=== PATIENT | female | born 1960 | race Hispanic/Latino ===

== ENCOUNTER 2018-09-06 16:53 | Observation (INO) | payer OTHER ==
--- OUTSIDE RECORDS SUMMARY | 2018-09-06 16:55 | XMS REPORT ---
:1960 Author Organization eClinicalWorks Care Team Providers Name Role Phone Centeno, Na Provider Role Unavailable Allergies, Adverse Reactions, Alerts Substance Reaction Event Type Lisinopril Info Not Available Drug Allergy Cozaar Info Not Available Drug Allergy Problems Problem Type Condition Code Onset Dates Condition Status Problem Obesity E66.9 Active Problem Hyperlipidemia E78.5 Active Problem Allergic rhinitis J30.9 Active Problem Snoring R06.83 Active Assessment Influenza vaccination administered Z23 Active at current visit Problem Osteoarthritis M19.90 Active Assessment Osteoarthritis M19.90 Active Assessment History of colon polyps Z86.010 Active Problem History of colon polyps Z86.010 Active Problem 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 Active Problem History of cerebrovascular accident Z86.73 Active Problem Depression with anxiety F41.8 Active Problem Paroxysmal atrial fibrillation I48.0 Active Assessment Depression with anxiety F41.8 Active Assessment Alkaline phosphatase raised R74.8 Active Assessment Allergic rhinitis J30.9 Active Assessment Hypokalemia E87.6 Active Assessment HTN (hypertension) I10 Active Assessment Wellness examination Z00.00 Active Assessment Hyperlipidemia E78.5 Active Assessment Screening mammogram, encounter for Z12.31 Active Problem HTN (hypertension) I10 Active Medications Medication Code Code Instructions Start End Status Dosage System Date Date Flonase [facility] 77237022602 50 MCG/ACT Mar 30, Active 2 spray in Nasally Once a 2017 each day nostril Paxil ND 91883922395 20 MG Active 1 EACH ONCE A DAY ORALLY Flonase ND 40371994879 50 MCG/ACT Active 2 spray in Nasally Once a each day nostril Prilosec ND 09213944730 20 MG Active TOME ADENIKE [place] [facility] [place] [place] Amlodipine ND 95545946400 5 MG Orally Active TOME ADENIKE Besylate Once a day TABLETA [facility]OR [facility] [place] [place] Potassium ND 14494193649 20 MEQ Orally Feb 10, Active 1 tablet Chloride ER Once a day 2018 with food Amlodipine [facility] 85278503735 5 MG Orally Active TOME ADENIKE Besylate Once a day TABLETA POR V[place] Aspir-81 [facility] 08724620386 81 MG Orally Active 1 tablet Once a day Zyrtec Allergy [facility] 89978918220 10 MG Orally Mar 30, Inactive 1 tablet Once a day 2017 Montelukast [facility] 79624626787 10 MG Orally Active 1 tablet Sodium Once a day in the evening Diclofenac [facility] 29273009697 75 MG Orally Mar 30Apr 29, Active 1 tablet Sodium Twice a day prn 2017 2018 with food pain or milk Lipitor [facility] 30592880031 80 MG Orally Active 1 tablet Once a day Results No Known Results Immunizations Vaccine Administration Date Flucelvax - single dose syringe Mar 30, 2018 Summary Purpose eClinicalWorks Submission
--- OUTSIDE RECORDS SUMMARY | 2018-09-06 16:55 | XMS REPORT ---
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 Problem History of cerebrovascular accident Z86.73 Active Problem Grieving F43.21 Active Assessment History of atrial fibrillation Z86.79 Active Problem History of colon polyps Z86.010 Active Assessment Hypokalemia E87.6 Active Assessment Allergic rhinitis J30.9 Active Problem Palpitations R00.2 Active Problem Depression with anxiety F41.8 Active Problem Paroxysmal atrial fibrillation I48.0 Active Problem Snoring R06.83 Active Problem Osteoarthritis M19.90 Active Assessment Depression with anxiety F41.8 Active Assessment Hyperlipidemia E78.5 Active Assessment Grieving F43.21 Active Assessment Alkaline phosphatase raised R74.8 Active Problem Obesity E66.9 Active Assessment Screening mammogram, encounter for Z12.31 Active Assessment HTN (hypertension) I10 Active Problem Allergic rhinitis J30.9 Active Assessment Osteoarthritis M19.90 Active Assessment Palpitations R00.2 Active Problem Hyperlipidemia E78.5 Active Medications Medication Code Code Instructions Start End Status Dosage System Date Date [facility] 76018702308 81 MG Orally Active 1 tablet Once a day Flonase [facility] 45066456279 50 MCG/ACT Active 2 spray in Nasally Once a each day nostril Amlodipine ND 47152342587 5 MG Orally Once Active TOME ADENIKE Besylate a day TABLETA P[place] V[place] Montelukast [facility] 30182027236 10 MG Orally Active 1 tablet Sodium Once a day in the evening Potassium ND 56007590787 20 MEQ Orally Active 1 tablet Chloride ER Once a day with food Flonase [facility] 04560362216 50 MCG/ACT Active 2 spray in Nasally Once a each day nostril Lipitor [facility] 06520923807 80 MG Orally Active 1 tablet Once a day Amlodipine [facility] 39133124351 5 MG Orally Once Active TOME ADENIKE Besylate a day TABLETA [place] [facility] Paxil [facility] 84825085073 40 MG Orally Active 1 tablet Once a day in the morning Prilosec [facility] 19958085993 20 MG Active TOME ADENIKE CAPSULA POR VIA ORAL [place] Results No Known Results Summary Purpose eClinicalWorks Submission
--- OUTSIDE RECORDS SUMMARY | 2018-09-06 16:55 | XMS REPORT ---
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
--- OUTSIDE RECORDS SUMMARY | 2018-09-06 16:55 | XMS REPORT ---
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 Problem Allergic rhinitis J30.9 Active Problem Obesity E66.9 Active Problem Hyperlipidemia E78.5 Active Problem Osteoarthritis M19.90 Active Problem Depression with anxiety F41.8 Active Problem HTN (hypertension) I10 Active Problem Snoring R06.83 Active Assessment Depression with anxiety F41.8 Active Assessment Hyperlipidemia E78.5 Active Assessment Osteoarthritis M19.90 Active Assessment HTN (hypertension) I10 Active Assessment Allergic rhinitis J30.9 Active Medications Medication Code Code Instructions Start End Status Dosage System Date Date Zyrtec Allergy [facility] 87858221567 10 MG Orally Active 1 tablet Once a day Lipitor [facility] 52877457014 80 MG Orally Active 1 tablet Once a day Flonase [facility] [address]-92 50 MCG/ACT Active 2 spray in Nasally Once a each day nostril Prilosec [facility] 33872798382 20 MG Active TOME ADENIKE [place]A [place] Paxil [facility] 71906359097 20 MG Active 1 EACH ONCE A DAY ORALLY Montelukast ND 37270632421 10 MG Orally Dec 06, Active 1 tablet Sodium Once a day 2018 in the evening Diclofenac ND 78256278206 75 MG Orally Mar 06, Active 1 tablet Sodium Twice a day 2018 with food or milk prn pain Amlodipine ND 21903952840 5 MG Orally Active TOME ADENIKE Besylate Once a day TABLETA P[place] [facility] [place] Aspir-81 [facility] 90083649557 81 MG Orally Active 1 tablet Once a day Results No Known Results Summary Purpose eClinicalWorks Submission
[2018-09-06 17:45] LABS: Absolute Lymphocytes (CBC) 1.7 K/uL (0.7-4.9); Absolute Monocytes 0.4 K/uL (0.1-1.3); Absolute Neutrophil 4.5 K/uL (1.8-8.0); Basophils % 0.5 % (0-1.3); Eosinophils % 1.5 % (0-4.4); Lymphocytes % 24.9 % (15.3-44.8); MPV 8.1 fL (7.6-11.3); Monocytes % 6.6 % (3.3-12.3); RBC Red Blood Cell Count 4.73 M/uL (3.86-4.86)
--- NOTE | 2018-09-06 17:49 | RAD REPORT ---
EXAM DESCRIPTION: [place] Single View09/06/2018 5:36 pm CLINICAL HISTORY: Chest pain COMPARISON: 2012 FINDINGS: The lungs appear clear of acute infiltrate. The heart is normal size IMPRESSION: No acute abnormalities displayed
[2018-09-06 18:04] LABS: ALT/SGPT 39 U/L (12-78); AST/SGOT 27 U/L (15-37); Albumin 3.5 g/dL (3.4-5.0); Alkaline Phosphatase 130 U/L (45-117); BUN Blood Urea Nitrogen 11 mg/dL (7-18); Bicarbonate 28 mmol/L (21-32); Bilirubin Direct 0.2 mg/dL (0-0.2); Bilirubin Total 0.6 mg/dL (0.2-1.0); Glucose Level 101 mg/dL (74-106); NT PRO-BNP 43 pg/mL (<125); Protein, Total 7.6 g/dL (6.4-8.2); Sodium Level 140 mmol/L (136-145); Troponin (Emerg Dept Use Only) < 0.02 ng/mL (0.0-0.045)
[2018-09-06] MEDS ORDERED: ASPIRIN 81 MG CHEWABLE TABLET ONE (18:05)
[2018-09-06 18:14] LABS: Potassium 2.9 mmol/L (3.5-5.1)
--- NOTE | 2018-09-06 18:25 | EDPHYS ---
Physician Documentation [facility] Name: Doreen Petty Age: 58 yrs Sex: Female : 1960 Arrival Date: 09/06/2018 Time: 16:56 Bed 7 Private MD: Autumn Centeno ED Physician Harry Urban HPI: 09/06 17:31 This 58 yrs old Female presents to ER via Ambulatory with complaints of Chest rn Pain. 17:31 The patient or guardian reports chest pain that is located primarily in the substernal rn area. Onset: yesterday. The pain does not radiate. Associated signs and symptoms: Pertinent positives: diaphoresis, nausea. The chest pain is described as a heaviness, squeezing. Duration: The patient or guardian reports multiple episodes, that are intermittent, the episodes last approximately 10 minute(s). Modifying factors: The symptoms are alleviated by ASA, the symptoms are aggravated by nothing. Severity of pain: At its worst the pain was moderate in the emergency department the pain has improved. The patient has not recently seen a physician. Reports 2 days of chest pain, substernal, intermittent, lasting 10-20 min, states takes aspirin and improves, assoc with nausea and diaphoresis. Reports has never had heart attack but has had stroke, HTN, HLD. . Historical: - Allergies: 16:59 No Known Allergies; hj - PMHx: 16:59 Hypertension; Depression; Hyperlipidemia; hj - PSHx: 16:59 ; Appendectomy; hj - Immunization history:: Adult Immunizations up to date. - Social history:: Smoking status: Patient/guardian denies using tobacco. - Family history:: not pertinent. - Ebola Screening: : Patient denies travel to an Ebola-affected area in the 21 days before illness onset. - Hospitalizations: : No recent hospitalization is reported. ROS: 17:31 Constitutional: Negative for fever, chills, and weight loss, Eyes: Negative for injury, rn pain, redness, and discharge, Neck: Negative for injury, pain, and swelling, Cardiovascular: + chest pain Respiratory: Negative for shortness of breath, wheezing, and pleuritic chest pain, Abdomen/GI: Negative for abdominal pain, vomiting, diarrhea, and constipation, MS/Extremity: Negative for injury and deformity, Skin: Negative for injury, rash, and discoloration, Neuro: Negative for headache, weakness, numbness, tingling, and seizure. Exam: 17:31 Constitutional: This is a well developed, well nourished patient who is awake, alert, rn and in no acute distress. Head/Face: Normocephalic, atraumatic. Eyes: Pupils equal round and reactive to light, extra-ocular motions intact. Lids and lashes normal. Conjunctiva and sclera are non-icteric and not injected. Cornea within normal limits. Periorbital areas with no swelling, redness, or edema. Neck: Trachea midline, no thyromegaly or masses palpated, and no cervical lymphadenopathy. Supple, full range of motion without nuchal rigidity, or vertebral point tenderness. No Meningismus. Cardiovascular: Regular rate and rhythm. No pulse deficits. Respiratory: Lungs have equal breath sounds bilaterally, clear to auscultation. No increased work of breathing, no retractions or nasal flaring. Abdomen/GI: Soft, non-tender Skin: Warm, dry MS/ Extremity: Pulses equal, no cyanosis. Neurovascular intact. Full, normal range of motion. Equal circumference. Neuro: Awake and alert, GCS 15, oriented to person, place, time, and situation. Cranial nerves II-XII grossly intact. Motor strength 5/5 in all extremities. Sensory grossly intact. 18:26 ECG was reviewed by the Attending Physician. rn Vital Signs: 16:59 BP 140 / 78; Pulse 94; Resp 18; Temp 98.3(O); Pulse Ox 97% on R/A; Weight 95.25 kg; hj Height 5 ft. 2 in. (157.48 cm); Pain 6/10; 17:35 BP 161 / 91; Pulse 100; Resp 19; Pulse Ox 97% on R/A; ae4 18:26 BP 165 / 86; Pulse 102; Resp 16; Pulse Ox 100% on R/A; ae4 19:45 BP 146 / 91; Pulse 91; Resp 18; Temp 98.2(TE); Pulse Ox 97% on R/A; Pain 0/10; lp1 16:59 Body Mass Index 38.41 (95.25 kg, 157.48 cm) MDM: 17:11 Patient medically screened. rn 18:21 HEART Score: History: Highly Suspicious (2), ECG: Normal (0), Age: > 45 and < 65 years rn (1), Risk Factors: > or = 3 Risk factors for atherosclerotic disease (2), [Hypercholesterolemia] [Hypertension] [+ Family HX] [Obesity] Troponin: < or = 1 x Normal Limit (0). The patient was given aspirin in the Emergency Department. Data reviewed: vital signs, nurses notes, lab test result(s), EKG, radiologic studies, plain films, and as a result, I will admit patient. Counseling: I had a detailed discussion with the patient and/or guardian regarding: the historical points, exam findings, and any diagnostic results supporting the discharge/admit diagnosis, lab results, radiology results, the need for further work-up and treatment in the hospital. Admission orders: after a detailed discussion of the patient's condition and case, the admit orders are written by me. ED course: Pt high risk chest pain, has known atherosclerotic disease, HTN, HLD, highly suspicious story and no recent cardiac w/u. Patient continuing to take aspirin at home with improvement. Will admit to Dr. Dc, did not answer, voicemail left. . 18:26 ED course: Also prolonged QT on ECG, likely from abilify that she just started. Not rn likely cause of her pain but puts her at higher risk of arrythmia. . 09/06 17:20 Order name: Basic Metabolic Panel; Complete Time: 18:18 rn 09/06 17:20 Order name: CBC with Diff; Complete Time: 18:04 rn 09/06 17:20 Order name: LFT's; Complete Time: 18:18 rn 09/06 17:20 Order name: NT PRO-BNP; Complete Time: 18:18 rn 09/06 17:20 Order name: Troponin (emerg Dept Use Only); Complete Time: 18:18 rn 09/06 17:20 Order name: XRAY Chest (1 view); Complete Time: 18:04 rn 09/06 17:01 Order name: EKG - Nurse/Tech; Complete Time: 17:12 09/06 17:18 Order name: EKG Electrocardiogram; Complete Time: 17:18 EDMS 09/06 17:20 Order name: Cardiac monitoring; Complete Time: 17:33 rn 09/06 17:20 Order name: IV Saline Lock; Complete Time: 17:34 rn 09/06 17:20 Order name: Labs collected and sent; Complete Time: 17: rn 09/06 17:20 Order name: O2 Per Protocol; Complete Time: rn 09/06 17:20 Order name: O2 Sat Monitoring; Complete Time: :34 rn EC:26 Rate is 86 beats/min. Rhythm is regular. QRS Stover is Normal. MD interval is normal. QRS rn interval is normal. QT interval is prolonged at 497 msec. No Q waves. T waves are Normal. No ST changes noted. Clinical impression: Prolonged QT, NSR. Interpreted by me. Reviewed by me. Administered Medications: 17:51 Drug: Aspirin Chewable Tablet 324 mg Route: PO; ae4 18:56 Follow up: Response: No adverse reaction ae4 Disposition: 09/06/18 18:24 Hospitalization ordered by Ni Dc for Observation. Preliminary diagnosis is Chest pain, unspecified. - Bed requested for Telemetry/MedSurg (observation). - Status is Observation. lp1 - Condition is Stable. - Problem is new. - Symptoms have improved. UTI on Admission? No Signatures: Dispatcher [employer] EDMN Yvette Glasgow RN RN dw Harry Urban MD MD rn Pena, Laura, RN RN lp1 Walt Dean, RN OSITO Adrien Patterson RN RN ae4 Corrections: (The following items were deleted from the chart) 19:33 18:24 Hospitalization Ordered by Ni Dc MD for Observation. Preliminary diagnosis dw is Chest pain, unspecified. Bed requested for Telemetry/MedSurg (observation). Status is Observation. Condition is Stable. Problem is new. Symptoms have improved. UTI on Admission? No. rn 20:36 19:33 09/06/2018 18:24 Hospitalization Ordered by Ni Dc MD for Observation. lp1 Preliminary diagnosis is Chest pain, unspecified. Bed requested for Telemetry/MedSurg (observation). Status is Observation. Condition is Stable. Problem is new. Symptoms have improved. UTI on Admission? No. dw
--- NOTE | 2018-09-06 18:25 | ER ---
Nurse's Notes [facility] Name: Doreen Petty Age: 58 yrs Sex: Female : 1960 Arrival Date: 09/06/2018 Time: 16:56 Bed 7 Private MD: Autumn Centeno Diagnosis: Chest pain, unspecified Presentation: 09/06 16:57 Presenting complaint: Child states: her PCP told her to come to the ER for chest pain hj and be evaluated; per EKG there is prolonged QT; pain started 2 days ago, reports pressure, heavy type of pain; reports non radiating pain; reports SOB;. Transition of care: patient was not received from another setting of care. Onset of symptoms was September 06, 2018. Risk Assessment: Do you want to hurt yourself or someone else? Patient reports no desire to harm self or others. Initial Sepsis Screen: Does the patient meet any 2 criteria? No. Patient's initial sepsis screen is negative. Does the patient have a suspected source of infection? No. Patient's initial sepsis screen is negative. Care prior to arrival: None. 16:57 Method Of Arrival: Ambulatory 16:57 Acuity: TANIYA 3 hj Historical: - Allergies: 16:59 No Known Allergies; hj - PMHx: 16:59 Hypertension; Depression; Hyperlipidemia; hj - PSHx: 16:59 ; Appendectomy; hj - Immunization history:: Adult Immunizations up to date. - Social history:: Smoking status: Patient/guardian denies using tobacco. - Family history:: not pertinent. - Ebola Screening: : Patient denies travel to an Ebola-affected area in the 21 days before illness onset. - Hospitalizations: : No recent hospitalization is reported. Screenin:28 Abuse screen: Denies threats or abuse. Nutritional screening: No deficits noted. ae4 Tuberculosis screening: No symptoms or risk factors identified. Fall Risk None identified. Assessment: 17:10 Reassessment: application performance engineer at bedside obtaining EKG. ae4 17:15 Reassessment: Patient states pain is intermittent. General: Appears uncomfortable, ae4 obese, Behavior is cooperative, appropriate for age, anxious. Pain: Complains of pain in chest Pain does not radiate. Quality of pain is described as crushing, squeezing, Pain began gradually. Neuro: Level of Consciousness is awake, alert, obeys commands, Oriented to person, place, time, situation, Appropriate for age. Cardiovascular: Heart tones S1 S2 present Patient states she has had pain like this before and it is often accompanied by nausea and shortness of breath. . Patient's skin is warm and dry. Cardiovascular: Reports chest pain, nausea, shortness of breath. Respiratory: Airway is patent Respiratory effort is even, unlabored, Respiratory pattern is regular, symmetrical, Breath sounds are clear bilaterally. GI: No signs and/or symptoms were reported involving the gastrointestinal system. Bowel sounds present X 4 quads. Reports nausea. : No signs and/or symptoms were reported regarding the genitourinary system. EENT: No signs and/or symptoms were reported regarding the EENT system. Derm: Skin is dry, Skin is normal. Musculoskeletal: No signs and/or symptoms reported regarding the musculoskeletal system. 18:29 Reassessment: Patient appears in no apparent distress at this time. Patient and/or ae4 family updated on plan of care and expected duration. Pain level reassessed. Patient is alert, oriented x 3, equal unlabored respirations, skin warm/dry/pink. 19:45 Reassessment: Patient appears in no apparent distress at this time. Patient is alert, lp1 oriented x 3, equal unlabored respirations, skin warm/dry/pink. Patient denies pain at this time. Patient states feeling better. Vital Signs: 16:59 BP 140 / 78; Pulse 94; Resp 18; Temp 98.3(O); Pulse Ox 97% on R/A; Weight 95.25 kg; Height 5 ft. 2 in. (157.48 cm); Pain 6/10; 17:35 BP 161 / 91; Pulse 100; Resp 19; Pulse Ox 97% on R/A; ae4 18:26 BP 165 / 86; Pulse 102; Resp 16; Pulse Ox 100% on R/A; ae4 19:45 BP 146 / 91; Pulse 91; Resp 18; Temp 98.2(TE); Pulse Ox 97% on R/A; Pain 0/10; lp1 16:59 Body Mass Index 38.41 (95.25 kg, 157.48 cm) ED Course: 16:56 Patient arrived in ED. mr 16:56 Autumn Centeno MD is Private Physician. mr 16:58 Triage completed. hj 17:00 Arm band placed on left wrist. hj 17:06 Roland Arciniega, RN is Primary Nurse. mg2 17:08 Placed in gown. Bed in low position. Call light in reach. Side rails up X 1. Adult w/ ae4 patient. security monitor on. Pulse ox on. NIBP on. Warm blanket given. 17:11 Harry Urban MD is Attending Physician. rn 17:12 EKG done, by orthopedic technician. reviewed by Harry Urban MD. sm3 17:34 Inserted saline lock: 20 gauge in right forearm, using aseptic technique. Blood ae4 collected. Patient maintains SpO2 saturation greater than 95% on room air. 17:38 XRAY Chest (1 view) In Process Unspecified. EDMS 18:24 Ni Dc MD is Hospitalizing Provider. rn 19:45 No provider procedures requiring assistance completed. Patient admitted, IV remains in lp1 place. Administered Medications: 17:51 Drug: Aspirin Chewable Tablet 324 mg Route: PO; ae4 18:56 Follow up: Response: No adverse reaction ae4 Outcome: 18:24 Decision to Hospitalize by Provider. rn 19:45 Condition: stable lp1 19:45 Instructed on the need for admit. 19:52 Admitted to Tele accompanied by tech, via wheelchair, room 410, with chart, Report lp1 called to OSITO Mendoza 20:10 Patient left the ED. lp1 Signatures: Dispatcher [employer] EDND Gatito Maria Luisa mr Harry Urban MD MD rn Pena, Laura, RN RN lp1 Walt Dean RN RN Roland Arciniega, OSITO [facility] [facility] Kayla Multani sm3 Adrien Patterson RN RN ae4 Corrections: (The following items were deleted from the chart) 17:01 16:57 Presenting complaint: Child states: her PCP told here to come to the ER for chest hj pain and be evaluated; pain started 2 days ago, reports pressure, heavy type of pain; reports non radiating pain; reports SOB; hj 17:01 16:59 Pulse 94bpm; Resp 18bpm; Pulse Ox 97% RA; Temp 98.3F Oral; 95.25 kg; Height 5 ft. hj 2 in.; BMI: 38.4; Pain 6/10; hj 20:37 20:36 Patient left the ED. lp1 lp1
[2018-09-06] MEDS ORDERED: POTASSIUM CL SA 10 MEQ TAB PO ONE ×2 (20:29→23:00)
[2018-09-07] VITALS: BMI 38.4
[2018-09-07] MEDS ORDERED: ALPRAZOLAM 0.25 MG TABLET PO PRN (06:09)
[2018-09-07] MEDS ORDERED: ACETAMINOPHEN 500 MG TAB PO PRN (06:09)
[2018-09-07 06:26] LABS: Absolute Lymphocytes (CBC) 1.5 K/uL (0.7-4.9); Absolute Monocytes 0.4 K/uL (0.1-1.3); Absolute Neutrophil 3.6 K/uL (1.8-8.0); Basophils % 0.3 % (0-1.3); Eosinophils % 2.2 % (0-4.4); Hematocrit 40.4 % (36.0-45.0); Lymphocytes % 26.5 % (15.3-44.8); MPV 8.1 fL (7.6-11.3); Monocytes % 7.8 % (3.3-12.3); RBC Red Blood Cell Count 4.48 M/uL (3.86-4.86)
[2018-09-07 06:43] LABS: ALT/SGPT 36 U/L (12-78); AST/SGOT 31 U/L (15-37); Albumin 3.2 g/dL (3.4-5.0); Alkaline Phosphatase 111 U/L (45-117); BUN Blood Urea Nitrogen 10 mg/dL (7-18); Bicarbonate 29 mmol/L (21-32); Bilirubin Total 0.7 mg/dL (0.2-1.0); Glucose Level 91 mg/dL (74-106); Potassium 3.6 mmol/L (3.5-5.1); Protein, Total 6.8 g/dL (6.4-8.2); Sodium Level 143 mmol/L (136-145)
[2018-09-07] MEDS ORDERED: POTASSIUM CL SA 10 MEQ TAB PO ONE (07:17)
[2018-09-07] MEDS: METOPROLOL TAR 50 MG TAB PO SCH ×2 (08:53→09:00)
[2018-09-07] MEDS: ENOXAPARIN 40 MG/0.4 ML SQ SCH (08:53)
[2018-09-07] MEDS ORDERED: ASPIRIN EC 81 MG TAB PO SCH (09:00)
--- NOTE | 2018-09-07 10:24 | P.HP ---
Certification for Inpatient Patient admitted to: Observation With expected LOS: <2 Midnights Patient will require the following post-hospital care: None Practitioner: I am a practitioner with admitting privileges, knowledge of patient current condition, hospital course, and medical plan of care. Services: Services provided to patient in accordance with Admission requirements found in Title 42 Section 412.3 of the Code of Federal Regulations Patient History Date of Service: 09/06/18 Reason for admission: Chest pain rule out acute coronary syndrome History of Present Illness: Patient is a 58-year-old female who came into the hospital with chest pain mainly in the sternal region. the patient the also had some diaphoresis and nausea. Patient's chest pain was also described as if someone was sitting on her. I believe she has her son who gives most of the history. Patient's chest pain lasted for about 20 min. She took some anti-platelet platelet therapy and they brought her into the hospital. In the ER she was given additional medications and since that time her chest pain has been alleviated. Patient has a numerous risk factors for coronary artery disease. These include morbid obesity, hypertension, dyslipidemia, depression, and her age. Her symptoms are improved and her EKG and troponins were negative except for some slight QT prolongation on her EKG. Will repeat EKG and troponins and if this is negative she will need outpatient workup with follow-up with the bakery team leader. Allergies NKDA Allergy (Uncoded 03/31/15 22:59) Unknown Home Medications: ARIPiprazole [Aripiprazole] 5 mg PO DAILY 09/06/18 Amlodipine Besylate 5 mg PO DAILY 09/06/18 Aspirin 81 mg PO DAILY 09/06/18 Montelukast [Singulair] 10 mg PO DAILY 09/06/18 Omeprazole 20 mg PO DAILY 09/06/18 PARoxetine HCl [Paroxetine HCl] 40 mg PO DAILY 09/06/18 Potassium Chloride [Klor-Con M20] 20 meq PO DAILY 09/06/18 - Past Medical/Surgical History Has patient received pneumonia vaccine in the past: Yes Diabetic: No -: HTN -: HLD -: Depression -: -: Appendectomy - Family History Father Family History: Reviewed- Non-Contributory - Social History Smoking Status: Never smoker Alcohol use: No CD- Drugs: No Caffeine use: Yes Place of Residence: Home Review of Systems 10-point ROS is otherwise unremarkable Physical Examination - Vital Signs Temperature: 97.8 F Blood Pressure: 129/55 Pulse: 75 Respirations: 18 Pulse Ox (%): 95 - Physical Exam General: Alert, In no apparent distress, Oriented x3 HEENT: Atraumatic, PERRLA, Mucous membr. moist/pink, EOMI, Sclerae nonicteric Neck: Supple, 2+ carotid pulse no bruit, No LAD, Without JVD or thyroid abnormality Respiratory: Clear to auscultation bilaterally, Normal air movement Cardiovascular: Regular rate/rhythm, Normal S1 S2, No murmurs Gastrointestinal: Normal bowel sounds, Soft and benign, Non-distended, No rebound, No guarding, Tenderness Musculoskeletal: No clubbing, No swelling, No tenderness Integumentary: No rashes Neurological: Normal gait, Normal speech, Normal strength at 5/5 x4 extr, Normal tone, Sensation intact, Cranial nerves 3-12 intact, Normal affect Lymphatics: No axilla or inguinal lymphadenopathy - Studies Laboratory Data (last 24 hrs) 09/06/18 17:24: WBC 6.8, Hgb 14.5, Hct 43.0, Plt Count 292 09/06/18 17:24: Sodium 140, Potassium 2.9 L*, BUN 11, Creatinine 0.60, Glucose 101, Total Bilirubin 0.6, AST 27, ALT 39, Alkaline Phosphatase 130 H Assessment & Plan - Problems (Diagnosis) (1) Chest pain, rule out acute myocardial infarction Current Visit: Yes Status: Acute (2) Hypertension Current Visit: Yes Status: Acute (3) Hyperlipidemia Current Visit: Yes Status: Acute (4) Morbid obesity Current Visit: Yes Status: Acute (5) History of depression Current Visit: Yes Status: Acute - Plan 1. Serial troponins and EKG 2. Cardiology consultation 3. Echocardiogram and further testing for cardiology 4. Anti-platelet therapy, anti coagulation, beta-phillip, statin, and O2 as needed 5. IV morphine for pain 6. Nitro p.r.n. 7. Patient will need to decrease risk factors going forward. We will discuss with Cardiology whether she needs a stress test. If her EKGs and troponins remain essentially unremarkable then we can probably wait and have her follow up with Cardiology as an outpatient. If she continues to have chest pain with negative troponins and we may need to go ahead and do a stress test. She may need further outpatient workup for other etiologies. She has not had a mammogram in quite a while and she also needs to get this looked at. At this time patient meets criteria for observation. We will admit patient her for 24 hr pending her further workup to be completed. Discharge Plan: Home Plan to discharge in: 24 Hours - Advance Directives Does patient have a Living Will: No Does patient have a Durable POA for Healthcare: No - Code Status/Comfort Care Code Status Assessed: Yes Code Status: Full Code Critical Care: No Time Spent Managing PTS Care (In Minutes): 45
[2018-09-07 10:53] LABS: Urine Appearance CLOUDY; Urine Bilirubin NEGATIVE (NEG); Urine Blood NEGATIVE (NEG); Urine Color YELLOW; Urine Glucose NEGATIVE (NEG); Urine Protein NEGATIVE (NEG); Urine Specific Gravity 1.015 (1.005-1.030); Urine pH 7.5 (5.0-7.0)
[2018-09-07 11:01] LABS: Urine Bacteria >50 /HPF (<20); Urine Culture Reflex Order REFLEXED; Urine RBC <5 /HPF (NONE SEEN)
--- NOTE | 2018-09-07 11:11 | EKG ---
Test Date: 2018-09-06 Test Time: 17:12:06 Nurse Practical: ALYX MEASUREMENT RESULTS: Intervals: Rate: 86 NM: 152 QRSD: 88 QT: 416 QTc: 497 [place]: P: 38 NM: 152 QRS: 10 T: 63 INTERPRETIVE STATEMENTS: Normal sinus rhythm Prolonged QT Abnormal ECG Compared to ECG 06/28/2018 16:56:44 No significant changes Electronically Signed On 09-07-18 11:09:49 CDT by Jose J Claire
--- NOTE | 2018-09-07 11:24 | ECHO ---
HEIGHT: 5 ft 2 in WEIGHT: 210 lb 0 oz DATE OF STUDY: 09/07/[address]: Mian Sears MD 2-DIMENSIONAL: YES M.MODE: YES DOPPLER: YES COLOR FLOW: YES TDS: YES PORTABLE: NO DEFINITY: NO BUBBLE STUDY: NO DIAGNOSIS: CHEST PAIN RULE OUT ACUTE CORONARY SYNDROME CARDIAC HISTORY: CATHERIZATION: NO SURGERY: NO PROSTHETIC VALVE: NO PACEMAKER: NO MEASUREMENTS (cm) DIASTOLIC (NORMALS) SYSTOLIC (NORMALS) IVSd 1.1 (0.6-1.2) LA Diam 3.5 (1.9-4.0) LVEF 55% LVIDd 4.5 (3.5-5.7) LVIDs 3.2 (2.0-3.5) %FS 29% LVPWd 1.1 (0.6-1.2) Ao Diam 3.5 (2.0-3.7) 2 DIMENSIONAL ASSESSMENT: RIGHT ATRIUM: NORMAL LEFT ATRIUM: NORMAL RIGHT VENTRICLE: NORMAL LEFT VENTRICLE: NORMAL TRICUSPID VALVE: NORMAL MITRAL VALVE: NORMAL PULMONIC VALVE: NORMAL AORTIC VALVE: NORMAL PERICARDIAL EFFUSION: NONE AORTIC ROOT: NORMAL LEFT VENTRICULAR WALL MOTION: NORMAL. DOPPLER/COLOR FLOW: NORMAL. COMMENTS: NORMAL 2D ECHO WITH DOPPLER. NO WALL MOTION ABNORMALITY. NO EFFUSION. TECHNOLOGIST: OSCAR TONY
[2018-09-07] MEDS: DOCUSATE NA 100 MG CAP PO SCH ×2 (12:43→20:42)
--- NOTE | 2018-09-07 15:36 | P.PN ---
Subjective Date of Service: 09/07/18 Chief Complaint: Chest pain rule out acute coronary syndrome Subjective: No C/O voiced, Improving Patient seen and examined at bedside. Son at bedside. Chart reviewed and case discussed with Nursing staff. Patient reports resolved chest pain now. No complaints or concerns this morning. Review of Systems 10-point ROS is otherwise unremarkable Physical Examination - Vital Signs Temperature: 98.1 F Blood Pressure: 136/67 Pulse: 72 Respirations: 18 Pulse Ox (%): 95 - Physical Exam General: Alert, In no apparent distress, Oriented x3 HEENT: Atraumatic, PERRLA, EOMI Neck: Supple, JVD not distended Respiratory: Clear to auscultation bilaterally, Normal air movement Cardiovascular: Regular rate/rhythm, Normal S1 S2 Gastrointestinal: Normal bowel sounds, No tenderness Musculoskeletal: No tenderness Integumentary: No rashes Neurological: Normal speech, Normal tone, Normal affect Lymphatics: No axilla or inguinal lymphadenopathy - Studies Laboratory Data (last 24 hrs) 09/06/18 17:24: WBC 6.8, Hgb 14.5, Hct 43.0, Plt Count 292 09/06/18 17:24: Sodium 140, Potassium 2.9 L*, BUN 11, Creatinine 0.60, Glucose 101, Total Bilirubin 0.6, AST 27, ALT 39, Alkaline Phosphatase 130 H Assessment And Plan - Current Problems (Diagnosis) (1) Chest pain, rule out acute myocardial infarction Current Visit: Yes Status: Acute (2) Hypertension Current Visit: Yes Status: Acute (3) Hyperlipidemia Current Visit: Yes Status: Acute (4) Morbid obesity Current Visit: Yes Status: Acute (5) History of depression Current Visit: Yes Status: Acute (6) Urinary tract infection Current Visit: Yes Status: Suspected Qualifiers: Urinary tract infection type: acute cystitis Hematuria presence: without hematuria Qualified Code(s): N30.00 - Acute cystitis without hematuria - Plan - Serial troponins, negative x2 - Cardiology consultation. Recommendations appreciated. Pending stress test tomorrow. - Echocardiogram normal with EF of 55% - Continue Anti-platelet therapy, anti coagulation, beta-phillip, statin, and O2 as needed - IV morphine for pain - Nitro p.r.n. Disposition: pending stress test tomorrow. Possible DC home doris if stress test negative.
[2018-09-07] MEDS: CEFTRIAXONE/SWI 1gm 1 GM/10 ML SYR IVP SCH (16:00)
--- NOTE | 2018-09-07 16:19 | CON ---
Date of Consultation: 09/07/[address] Dc's service on 09/06/2018. I saw the patient on 09/07/2018. Reason For Consultation: Chest pain. History Of Present Illness: Ms. Petty is a 58-year-old [place] woman with no previous car diac history, but she has a history of hypertension, dyslipidemia, gastroesophageal reflux disease, C OPD, and hypokalemia. She came in with substernal chest pressure that has been going on for about 48 hours intermittently, would last 15-20 minutes with nausea, diaphoresis, and shortness of breath, bu t no vomiting. Her symptoms are nonexertional. She, in the emergency room, was noted to have a norm al EKG, normal chest x-ray. Her potassium was 2.9, which was supplemented. Past Medical History: As stated above. Allergies: NONE. Review of Systems: Negative. Social History: Negative. Family History: Negative. Physical Examination: Vital signs: Stable, afebrile. HEENT Exam: Negative. Neck: Supple. No bruit, lymphadenopathy, JVD, or thyromegaly. Chest: Clear to auscultation and percussion. Cardiac Exam: Revealed a regular rhythm and rate. No murmurs, gallops, or rubs. Abdomen: Benign. Extremities: Revealed no clubbing, cyanosis, or edema. Diagnostic Data: As stated earlier. Impression And Plan: 1.Symptoms, that certainly could be related to coronary artery disease. The patient is 58; has obes ity, hypertension, dyslipidemia. I think despite her normal EKG and a normal x-ray and normal blood work, I think she needs to have a rather aggressive workup. I recommend an echocardiogram and a stre ss test. Her echo is being done today. We will plan to do a stress test on her tomorrow prior to sally chang final decisions. 2.Hypokalemia that has corrected. 3.Hypertension. 4.Dyslipidemia. 5.Chronic obstructive pulmonary disease. 6.Gastroesophageal reflux disease. ESPERANZA/MERCEDES Voice ID: [id number] Report ID: [id number]
[2018-09-07] MEDS: METOPROLOL TAR 25 MG TAB PO SCH (20:42)
[2018-09-08 06:15] LABS: BUN Blood Urea Nitrogen 13 mg/dL (7-18); Bicarbonate 30 mmol/L (21-32); Glucose Level 100 mg/dL (74-106); Potassium 3.9 mmol/L (3.5-5.1); Sodium Level 141 mmol/L (136-145)
[2018-09-08] MEDS ORDERED: POTASSIUM CL SA 10 MEQ TAB PO ONE (06:17)
[2018-09-08] MEDS ORDERED: PANTOPRAZOLE 40MG TABLET PO SCH (07:30)
[2018-09-08 08:56] VITALS: TEMP 98.1
[2018-09-08] MEDS ORDERED: HOME MED 1 EA UNK (Omeprazole [Omeprazole] 20 MG) PO SCH (09:00)
[2018-09-08] MEDS: METOPROLOL TAR 25 MG TAB PO SCH (09:00)
[2018-09-08] MEDS ORDERED: MONTELUKAST 10 MG TAB PO SCH (09:00)
[2018-09-08] MEDS ORDERED: POTASSIUM CL SA 10 MEQ TAB PO SCH (09:00)
[2018-09-08] MEDS: ENOXAPARIN 40 MG/0.4 ML SQ SCH (09:00)
[2018-09-08] MEDS ORDERED: ASPIRIN 81 MG CHEWABLE TABLET PO SCH (09:00)
[2018-09-08] MEDS ORDERED: HOME MED 1 EA UNK (Paroxetine Hcl [Paroxetine Hcl] 40 MG) PO SCH (09:00)
[2018-09-08] MEDS ORDERED: ARIPiprazole 5 MG TAB PO SCH (09:00)
[2018-09-08] MEDS ORDERED: POTASSIUM CHLORIDE 20 MEQ PO SCH (09:00)
[2018-09-08] MEDS ORDERED: PARoxetine HCl 10 MG TAB PO SCH (09:00)
[2018-09-08] MEDS ORDERED: AMLODIPINE 5 MG TAB PO SCH (09:00)
[2018-09-08] MEDS ORDERED: REGADENOSON 0.4 MG/5 ML SYR IV ONE (09:33)
[2018-09-08 11:37] VITALS: O2SAT 96
--- NOTE | 2018-09-08 12:02 | P.SSS ---
Patient History Date of Service: 09/08/18 Reason for admission: Chest pain rule out acute coronary syndrome History of Present Illness: Patient is a 58-year-old female who came into the hospital with chest pain mainly in the sternal region. the patient the also had some diaphoresis and nausea. Patient's chest pain was also described as if someone was sitting on her. I believe she has her son who gives most of the history. Patient's chest pain lasted for about 20 min. She took some anti-platelet platelet therapy and they brought her into the hospital. In the ER she was given additional medications and since that time her chest pain has been alleviated. Patient has a numerous risk factors for coronary artery disease. These include morbid obesity, hypertension, dyslipidemia, depression, and her age. Her symptoms are improved and her EKG and troponins were negative except for some slight QT prolongation on her EKG. Will repeat EKG and troponins and if this is negative she will need outpatient workup with follow-up with the publications editor. Allergies NKDA Allergy (Uncoded 03/31/15 22:59) Unknown Home medications list reviewed: Yes Home Medications: ARIPiprazole [Aripiprazole] 5 mg PO DAILY 09/06/18 Amlodipine Besylate 5 mg PO DAILY 09/06/18 Aspirin 81 mg PO DAILY 09/06/18 Montelukast [Singulair] 10 mg PO DAILY 09/06/18 Omeprazole 20 mg PO DAILY 09/06/18 PARoxetine HCl [Paroxetine HCl] 40 mg PO DAILY 09/06/18 Potassium Chloride [Klor-Con M20] 20 meq PO DAILY 09/06/18 - Past Medical/Surgical History Has patient received pneumonia vaccine in the past: Yes Diabetic: No -: HTN -: HLD -: Depression -: -: Appendectomy - Social History Smoking Status: Never smoker Alcohol use: No CD- Drugs: No Caffeine use: Yes Place of Residence: Home Review of Systems 10-point ROS is otherwise unremarkable Physical Examination - Vital Signs Temperature: 98.1 F Blood Pressure: 117/60 Pulse: 61 Respirations: 18 Pulse Ox (%): 94 - Physical Exam General: Alert, In no apparent distress, Oriented x3 HEENT: Atraumatic, PERRLA, Mucous membr. moist/pink, EOMI, Sclerae nonicteric Neck: Supple, 2+ carotid pulse no bruit, No LAD, Without JVD or thyroid abnormality Respiratory: Clear to auscultation bilaterally, Normal air movement Cardiovascular: Regular rate/rhythm, Normal S1 S2 Gastrointestinal: Normal bowel sounds, No tenderness Musculoskeletal: No tenderness Integumentary: No rashes Neurological: Normal gait, Normal speech, Normal strength at 5/5 x4 extr, Normal tone, Normal affect Lymphatics: No axilla or inguinal lymphadenopathy - Diagnosis (Problem(s)) (1) Chest pain, rule out acute myocardial infarction Current Visit: Yes Status: Acute (2) Hypertension Current Visit: Yes Status: Acute (3) Hyperlipidemia Current Visit: Yes Status: Acute (4) Morbid obesity Current Visit: Yes Status: Acute (5) History of depression Current Visit: Yes Status: Acute (6) Urinary tract infection Current Visit: Yes Status: Suspected Qualifiers: Urinary tract infection type: acute cystitis Hematuria presence: without hematuria Qualified Code(s): N30.00 - Acute cystitis without hematuria Treatment Summary: Patient was admitted for chest pain rule out. Cardiology was consulted. ACS was ruled out with negative troponins x3, normal echocardiogram with ejection fraction of 55%. The stress test was done, which was negative. She is not cleared for discharge from cardiology point of view. She was asked to follow up with her primary care physician in 1 week and Cardiology in 2 weeks. Prior to discharge, she was alert oriented x3, in no acute distress and symptom- free. Her diagnosis and treatment plan were explained to her, all questions were answered. Patient and family verbalized understanding. She was then discharged home in a safe and stable manner. - Disposition Discharge Date: 09/08/18 Disposition: ROUTINE DISCHARGE Condition: GOOD Consultations: Cardiology Patient Discharge Instructions: Please follow up with the primary care physician 1 week. Please follow up with cardiology in 2 weeks. Please return to the emergency room for worsening symptoms. Diet: AHA Activity: Ad juhi Time Spent Managing Pts Care (In Minutes): 45
--- NOTE | 2018-09-08 12:45 | PN ---
Date of Progress Note: 09/08/2018 Ms. Petty continues to have some intermittent chest pain overnight. Vital signs remained stable. Telemetry remained normal. Echocardiogram was normal. Troponin was st ill negative. Lexiscan is pending. We will continue to follow her and see what her Lexiscan shows p rior to making final decisions. ESPERANZA/MERCEDES Voice ID: [id number] Report ID: [id number]
--- NOTE | 2018-09-08 13:21 | RAD REPORT ---
EXAM DESCRIPTION: NM - Rest Stress Cardiac Imaging - 09/08/2018 1:14 pm CLINICAL HISTORY: CP Chest pain. COMPARISON: ECHOCARDIOGRAM dated 02/02/2012 TECHNIQUE: The patient was administered approximately 10mCi of Tc 99m Sestamibi prior to resting SPE CT imaging of the heart. The patient was then administered approximately 30 mCi of Tc 99m Sestamibi f ollowing exercise or pharmacologic stress. Multiplanar SPECT images were reviewed. FINDINGS: No stress induced ischemic defect is seen to suggest stress induced ischemia. No fixed def ect is seen to suggest hibernating myocardium or scarred myocardium. The end diastolic volume is 91 ml, the end systolic volume is 38 ml, and the ejection fraction is 58 %. IMPRESSION: No stress induced ischemia.
[2018-09-08] MEDS: CEFTRIAXONE/SWI 1gm 1 GM/10 ML SYR IVP SCH (13:29)
[2018-09-08] MEDS: DOCUSATE NA 100 MG CAP PO SCH (13:33)
[2018-09-08 14:15] VITALS: BP 117/60
--- NOTE | 2018-09-11 10:28 | TREADPHA ---
DX: CHEST PAIN Date of Study: 09/08/18 Ht: 5 2 Wt: 210 lb 0 oz Consulting Physician: DRAGAN MEDICATIONS: TYLENOL, XANAX, NOVASC, ABILIFY, ASPIRIN, ROCEPHIN, COLACE CAP, LOVENOX, LOPRESSOR, SINGULAIR, PROTONIX, PAXIL, POTASSIUM CHLORIDE, NORMAL SALINE. HISTORY: 58 YEAR OLD FEMALE HERE FOR CHEST PAIN. HISTORY OF HYPERTENSION, DEPRESSION AND HYPERLIPIDEMIA. PHYSICIAL EXAMINATION: RESTING B.P.: 149/96 RESTING H.R.: 63 RESTING EKG: NORMAL PROTOCOL: LEXISCAN EXERCISE TIME: 3:30 B.P. AT [place]AK STRESS: 163/94 IMPRESSION: LEXISCAN STRESS TEST PERFORMED. CARDIOLITE INJECTED PER PROTOCOL. NO ARRHYTHMIAS NOTED. DENIES ANY CHEST PAIN. SEE NUCLEAR MEDICINE REPORT.
== END 2018-09-08 15:17 | disposition home or self-care (01) ==
LOC: ER 16:53 → ERHOLD 18:47 → 4TH 19:54
PROVIDERS: ADMIT Family Medicine; ATTEND Family Medicine
DX: R07.9 Chest pain, unspecified (principal); E78.5 Hyperlipidemia, unspecified; E87.6 Hypokalemia; I10 Essential (primary) hypertension; J44.9 Chronic obstructive pulmonary disease, unspecified; K21.9 Gastro-esophageal reflux disease without esophagitis; F32.9 Major depressive disorder, single episode, unspecified; N30.00 Acute cystitis without hematuria; R94.31 Abnormal electrocardiogram [ECG] [EKG]; E66.01 Morbid (severe) obesity due to excess calories; Z68.38 Body mass index [BMI] 38.0-38.9, adult; Z79.82 Long term (current) use of aspirin; Z79.899 Other long term (current) drug therapy
CPT/HCPCS: 36415; 71045; 78452; 80048; 80053; 80061; 80076; 81001; 83880; 84484; 85025; 87077; 87086; 87088; 87186; 93005; 93017; 93306; 99285; A9500; G0378; J0696; J1650; J2785

== ENCOUNTER 2020-07-09 11:37 | Emergency (ER) | payer OTHER ==
--- OUTSIDE RECORDS SUMMARY | 2020-07-09 11:42 | XMS REPORT | Continuity of Care Document ---
:1960 Author Organization [facility] t Address [address] [place] [address] Care Team Providers Name Role Phone System, Not In Primary Care Physician Unavailable MARLINE CORONADO Attending Clinician Unavailable MARLINE CORONADO Admitting Clinician Unavailable Problems Condition Condition Condition Status Onset Resolution Last Treating Co mments Source Name Details Category Date Date Treatment Clinician Date Chest pain Chest pain Disease Active [facility] Coronary Problem Active 2012-09-16 Mem oria Arterioscl 07:46:38 l 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 [facility] Memory Problem Active 2012-09-16 Memor ia Lapses Or 07:46:38 l Loss Memory Moise Lapses Or Loss Active 3 [facility] 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 09/16/2012 [facility] Hypertensi Problem Active 2012-09-16 M emoria on 07:46:38 l Moise Hypertensi on Active 09/16/2012 [facility] Allergies, Adverse Reactions, Alerts Allergy Allergy Status Severity Reaction(s) Onset Inactive Treating Comm ents Source Name Type Date Date Clinician Dora Adverse Active Info Not [facility] Reaction Available [facility] Lisinopr Adverse Active Info Not [facility] Reaction Available [facility] No Known No Known Active Memori a Drug Drug l Allergtao phillips s s Social History Social Habit Start Date Stop Date Quantity Comments Source Sex Assigned At [facility] Social History 2012-09-16 2012-09-16 [facility] 07:46:38 07:46:38 Medications Ordered Filled Start Stop Current Ordering Indication Dosage Frequency Signature Comments Components Source Medication Medication Date Date Medication? Clinician (SIG) Name Name BusPIRone BusPIRone Yes Na [facility] [address] [facility] HCl HCl 11-23 [facility] - 00:00: Memoria [facility] Metoprolol Metoprolol Yes Na [facility] [address] [facility] Tartrate Tartrate 11-23 with food Dulce kes - 00:00: [facility] ARIPiprazol Yes depression 5mg QD Take [address] (ABILIFY) 7 treatment by mouth [facility] - 5 MG tablet 14:25: adjunct daily. M edical [address] [place] [address] montelukast Yes 10mg QD Take [address] [facility] [address] (SINGULAIR) 11-01 by mouth Luke [facility] - 10 mg 14:25: daily. Medical tablet [address] [place] [address] busPIRone Yes QD Take by [facility] (BUSPAR) 5 7- mouth [facility] - MG tablet 14:25: daily. Medica l [address] [place] [address] amLODIPine Yes 5mg QD Take [address] (NORVASC) 7- by mouth [facility] - 10 MG 14:25: daily. Medical tablet 00 [place] PARoxetine Yes 40mg QD Take [address] (PAXIL) 40 7- by mouth [facility] - MG tablet 14:25: every Medical 00 morning. [place] omeprazole Yes 20mg QD Take [address] (PRILOSEC) 7- by mouth [facility] - 20 MG 14:25: daily. Medical capsule 00 [place] aspirin 81 Yes 81mg QD Take [address] MG EC 7-31 by mouth [facility] - tablet 14:25: daily. Medical 00 Center atorvastati Yes 40mg QD Take [address] [facility] n (LIPITOR) 7-31 by mouth Luke s - 40 MG 14:25: daily. Medical tablet Center Ranitidine Ranitidine Yes Na [facility] [address] [facility] HCl HCl 6-12 at bedtime [facility] - 00:00: Memoria 00 [facility] ent [facility] Flonase Flonase 2017-04 Yes Na [facility] [address] [facility] 2-27 each [facility] - 00:00: nostril Memoria 00 [facility] ent [facility] Potassium Potassium 2017-04 Yes Na [facility] [address] [facility] Chloride ER Chloride ER 1-09 with food [facility] - 00:00: Memoria 00 [facility] ent [facility] Montelukast Montelukast Yes Na [facility] [address] [facility] Sodium Sodium 9-04 in the [facility] - 00:00: evening [facility] 00 [facility] ent [facility] PARoxetine Yes (Active) Me moria HCl 10 MG 6-15 l Oral Tablet 07:46: Buddy n 38 Losartan Yes (Active) Roman nikolai Potassium 6-15 l 25 MG Oral 07:46: [place] Tablet 38 ALPRAZolam Yes (Active) Me moria 0.5 MG Oral 6-15 l Tablet 07:46: [place] 38 Atorvastati Yes (Active) M emoria n Calcium 6-15 l 80 MG Oral 07:46: [place] Tablet 38 Aspirin 81 Yes (Active) Me moria MG Oral 6-15 l Tablet 07:46: Moise 38 Flonase Flonase Yes Na [facility] [address] [facility] each [facility] - nostril [facility] ent [facility] Prilosec Prilosec Yes [facility] TOME MARCOS [facility] CAPSULA [facility] - POR VIA Memoria ORAL TODOS l [facility] -81 - Yes Na [facility] [address] [facility] - [facility] ent Clinics Amlodipine Amlodipine Yes Na [facility] tome marcos [facility] Besylate Besylate tableta Luke s - por via Memoria oral todos l los cueva [facility] ent Clinics Paxil Paxil Yes Na [facility] [address] [facility] [address] in the [facility] - morning [facility] l [facility] Lipitor Lipitor Yes [facility] [address] [facility] PredniSONE PredniSONE Yes [facility] [address] [facility] dailyx 5 [facility] - days then Memoria 1 tablet l daily x 5 Outpati days ent Clinics Cyclobenzap Cyclobenzap Yes [facility] [address] rine HCl rine HCl as needed Dulce kes - [facility] Aripiprazol Aripiprazol Yes Na [facility] [address] [facility] e [facility] Immunizations Ordered Filled Immunization Date Status Comments Sourc e Immunization Name Name Flucelvax - single Flucelvax - single 2018-03-[address] [facility] - dose syringe dose syringe 00:00:00 [facility] Procedures This patient has no known procedures. Plan of Care Planned Activity Planned Date Details Comments Source Future Scheduled 2020-12-[address] [facility] - Test 00:00:00 (Season Ended) [code Medical Center = INFLUENZA VACCINE (Season Ended)] Future Scheduled 2020-04-[address] [facility] - Test 00:00:00 (12+) [code = Medical Center DEPRESSION SCREENING (12+)] Future Scheduled 2008 SHINGLES VACCINES ([address] [facility] - Test 00:00:00 of 2) [code = Medical Center SHINGLES VACCINES (1 of 2)] Future Scheduled [address] [facility] - Test 00:00:00 (procedure) [code = Medical Center 04087841] Future Scheduled [address] [facility] - Test 00:00:00 [facility] cervix (procedure) [code = 976829320] Future Scheduled 1977 DTAP/TDAP/TD VACCINES [facility] Test 00:00:00 (1 - Tdap) [code = Medical C enter DTAP/TDAP/TD VACCINES (1 - Tdap)] Future Scheduled 1976 HEPATITIS C SCREENING [facility] 00:00:00 [code = HEPATITIS C Medical Center SCREENING] Future Scheduled [address] [facility] - Test 00:00:00 [facility] breast (procedure) [code = 790251101] Future Scheduled [address] [facility] - Test 00:00:00 malignant neoplasm of [facility] colon (procedure) [code = 823840527] Encounters Start End Encounter Admission Attending Care Care Encounter Source Date/Time Date/Time Type Type Clinicians Facility Department ID 2020-06-27 2020-06-27 Outpatient [facility] [id number] [facility] 2020-06-26 2020-06-26 Outpatient [facility] [id number] [facility] 2020-06-24 2020-06-24 Outpatient [facility] [id number] [facility] 2020-06-10 2020-06-10 [id number] [facility] 2020-06-04 2020-06-04 Outpatient [facility]ML[facility] [id number] [facility] 2020-05-27 2020-05-27 Outpatient [facility] [id number] [facility] 2020-05-08 2020-05-08 Outpatient [facility] [id number] [facility] 2020-05-06 2020-05-06 Outpatient [facility] [id number] [facility] 2020-04-24 2020-04-24 Outpatient [facility] [id number] [facility] 2020-03-12 2020-03-12 Outpatient [facility]ML[facility] [id number] [facility] 2020-02-25 2020-02-[address] [facility] [id number] [facility] 2019-10-09 2019-10-09 [facility] [id number] 15:40:00 15:40:00 t [place] [employer] [facility] Medicine l Medicine Outpati ent Clinics 2019-09-06 2019-09-06 [facility] [id number] [address] 12:33:00 12:33:00 t [place] [employer] [facility] l Medicine Outpati ent Clinics 2019-08-31 2019-08-31 [facility] [id number] 11:40:00 11:40:00 t Paxton [employer] [facility] Medicine l Medicine Outpati ent Clinics 2019-07-20 2019-07-20 [facility] [id number] 13:20:00 13:20:00 t [place]xton [employer] [facility] l Medicine Outpati ent Clinics 2019-02-23 2019-02-23 [facility] [id number] 08:20:00 08:20:00 t Paxton [employer] [facility] l Medicine Outpati ent Clinics 2018-11-23 2018-11-23 [facility] [id number] 13:20:00 13:20:00 t [place]xton [employer] [employer] [facility] Medicine l Medicine Outpati ent Clinics 2018-09-13 2018-09-13 [facility] [id number] 12:30:00 12:30:00 t [place] [employer] [facility] Medicine l Medicine Outpati ent Clinics 2018-09-06 2018-09-06 [facility] [id number] 10:20:00 10:20:00 t [place] [employer] [facility] [address] [facility] Medicine Outpati ent Clinics 2018-06-28 2018-06-28 [facility] [id number] 15:00:00 15:00:00 [facility] 2018-05-02 2018-05-02 [facility] [id number] 10:57:00 10:57:00 [facility] 2018-03-30 2018-03-30 [facility] [id number] 15:00:00 15:00:00 [facility] 2017-12-06 2017-12-06 [facility] [id number] 11:30:00 11:30:00 [facility] 2012-09-16 2012-09-16 Outpatient 3 [id number] 02:46:58 02:46:38 2012-08-01 2012-08-01 Outpatient 3 [id number] 10:18:22 10:18:22 Results Test Description Test Time Test Comments Results Result [facility] e Comments [facility], 2018-11-01 FINAL REPORT PATIENT CAL GRANDE, 12:12:00 ID: [id number] SPECT PROCEDURE:Rest/Stress MYOCARDIAL PERFUSION SCAN with Lexiscan CPT CODE:[id number] CLINICAL INDICATION: chest pain PROTOCOL: 10.2 mCi of Tc-99m sestamibi was injected intravenously at rest and 30.4 mCi of Tc-99m sestamibi was injected after administration of Lexiscan. Other stress and monitoring data are reported separately. Tomographic (SPECT) images were obtained after resting injection. Gated SPECT images were obtained after stress injection. FINDINGS: Images obtained after resting and stress injections of tracer show physiological tracer distribution in the LV myocardium. Gated images obtained at rest after stress injection show normal LV wall motion and thickening. QGS LVEF is 70 %. IMPRESSION: 1. Normal Lexiscan Cardiolite stress test. 2. Normal wall motion with LVEF of 70 %. Signed: Laura Maria Verified Date/Time: 11/01/2018 12:12:14 Reading Location: [facility] Cardiology Reading Room ONIN I 2018-11-01 01:02:00 Test Item Value Reference Range Interpretation Comme nts TROPONIN I (DARYA) (test code = 397) 0.01 ng/mL 0.00-0.15 Troponin I (TnI) levels must be interpreted in the context of the presenting symptoms and the clinical findings. Elevated TnI levels indicate myocardial damage, but are not specific for ischemic heart disease. Elevated TnI levels are seen in patients with other cardiac conditions (including myocarditis and congestive heart failure), and slight TnI elevations occur in patients with other conditions, including sepsis, renal failure, acidosis, acute neurological disease, and persistent tachyarrhythmia.TROPONIN [id number] 19:42:00 Test Item Value Reference Range Interpretation Comments TROPONIN I (DARYA) (test code = 0.01 ng/mL 0.00-0.15 397) Troponin I (TnI) levels must be interpreted in the context of the presenting symptoms and the clinical findings. Elevated TnI levels indicate myocardial damage, but are not specific for ischemic heart disease. Elevated TnI levels are seen in patients with other cardiac conditions (including myocarditis and congestive heart failure), and slight TnI elevations occur in patients with other conditions, including sepsis, renal failure, acidosis, acute neurological disease, and persistent tachyarrhythmia.
[2020-07-09 15:36] LABS: Absolute Lymphocytes (CBC) 1.8 K/uL (0.7-4.9); Basophils % 0.3 % (0-1.3); Hematocrit 39.5 % (36.0-45.0); Lymphocytes % 23.6 % (15.3-44.8); MPV 8.4 fL (7.6-11.3); RBC Red Blood Cell Count 4.39 M/uL (3.86-4.86)
[2020-07-09 16:20] LABS: Potassium 2.9 mmol/L (3.5-5.1)
--- NOTE | 2020-07-09 16:33 | RAD REPORT ---
EXAM DESCRIPTION: US - Extrem Venous W Compress Marty - 07/09/2020 4:15 pm CLINICAL HISTORY: Pain;Swelling, both legs COMPARISON: None. TECHNIQUE: Real-time sonographic evaluation of the bilateral lower extremity common femoral, superfi cial femoral, popliteal and posterior tibial veins was performed. FINDINGS: Normal compressibility, flow augmentation, phasic flow and spontaneous flow are identified in the left and right lower extremity common femoral, superficial femoral, popliteal and posterior t ibial veins. No intraluminal filling defects seen. IMPRESSION: No DVT in either lower extremity.
[2020-07-09] MEDS ORDERED: POTASSIUM CL SA 10 MEQ TAB PO ONE (16:50)
--- NOTE | 2020-07-09 17:04 | EDPHYS ---
Physician Documentation [facility] Name: Doreen Black Age: 60 yrs Sex: Female : 1960 Arrival Date: 07/09/2020 Time: 11:40 Bed 14 Private MD: Autumn Centeno ED Physician Harry Urban HPI: 07/09 15:06 This 60 yrs old Female presents to ER via Ambulatory with complaints of Ankle rn Swelling, Feet Swelling. 15:06 The patient presents with pain, swelling. The complaints affect the . Onset: The rn symptoms/episode began/occurred 4 month(s) ago. Modifying factors: The symptoms are alleviated by rest and elevating legs. the symptoms are aggravated by weight bearing. Associated signs and symptoms: Pertinent positives: swelling, Pertinent negatives fever, rash, warmth, weakness. Severity of symptoms: At their worst the symptoms were moderate, in the emergency department the symptoms are unchanged. The patient has experienced similar episodes in the past. The patient has not recently seen a physician. No known hx of dvt/pe/CHF/kidney disease/liver failure/cirrhosis.Reports better at night when elevates legs, worse after spending a lot of time on legs. No trauma. . Historical: - Allergies: 12:13 No Known Allergies; ca1 - PMHx: 12:13 Depression; Hyperlipidemia; Hypertension; ca1 - PSHx: 12:13 ; Appendectomy; ca1 - Immunization history:: Client reports receiving the 2nd dose of the Covid vaccine, Client reports receiving the 1st dose of the Covid vaccine, Flu vaccine is up to date. - Social history:: Smoking status: Patient denies any tobacco usage or history of. - Family history:: not pertinent. - Hospitalizations: : No recent hospitalization is reported. ROS: 15:06 Constitutional: Negative for fever, chills, and weight loss, Eyes: Negative for injury, rn pain, redness, and discharge, Neck: Negative for injury, pain, and swelling, Cardiovascular: Negative for chest pain, palpitations, + edema Respiratory: Negative for shortness of breath, cough, wheezing, and pleuritic chest pain, Abdomen/GI: Negative for abdominal pain, nausea, vomiting, diarrhea, and constipation, Back: Negative for injury and pain, : Negative for injury, bleeding, discharge, and swelling, MS/Extremity: + swelling of both legs Skin: Negative for injury, rash, and discoloration, Neuro: Negative for headache, weakness, numbness, tingling, and seizure. 15:10 All other systems are negative. rn Exam: 15:06 Constitutional: Overweight patient, no acute distress Head/Face: Normocephalic, rn atraumatic. Cardiovascular: Regular rate and rhythm. No pulse deficits. Respiratory: No increased work of breathing, no retractions or nasal flaring. Abdomen/GI: soft, non-tender Skin: Warm, dry, no erythema or warmth. + bilateral lower ext edema that is 1+ pitting, no open wounds. No calf or focal tenderness. RLE slightly greater circumference compared to LLE. MS/ Extremity: Pulses equal, no cyanosis. Neuro: Awake and alert, GCS 15, oriented to person, place, time, and situation. Cranial nerves II-XII grossly intact. Motor strength 5/5 in all extremities. Sensory grossly intact. Vital Signs: 12:07 BP 106 / 48; Pulse 65; Resp 18 S; Temp 97.2; Pulse Ox 97% on R/A; Weight 97.52 kg (R); ca1 Height 5 ft. 2 in. (157.48 cm) (R); 15:07 BP 143 / 76; Pulse 72; Resp 20; Temp 98.0(O); Pulse Ox 99% on R/A; Weight 97.52 kg; ld1 Pain 0/10; 16:15 BP 134 / 69; Pulse 78; Resp 18; Pulse Ox 99% on R/A; Pain 0/10; ld1 15:07 Body Mass Index 39.32 (97.52 kg, 157.48 cm) ld1 MDM: 14:59 Patient medically screened. rn 17:02 Differential diagnosis: peripheral edema, CKD, CHF, dependent edema, DVT. Data rn reviewed: vital signs, nurses notes, lab test result(s), radiologic studies, doppler, and as a result, I will discharge patient. Counseling: I had a detailed discussion with the patient and/or guardian regarding: the historical points, exam findings, and any diagnostic results supporting the discharge/admit diagnosis, lab results, radiology results, the need for outpatient follow up, to return to the emergency department if symptoms worsen or persist or if there are any questions or concerns that arise at home. Special discussion: I discussed with the patient/guardian in detail that at this point there is no indication for admission to the hospital. It is understood, however, that if the symptoms persist or worsen the patient needs to return immediately for re-evaluation. ED course: No acute findings to suggest CHF/renal disease, neg for DVT. Will dc home with leg elevation and compression stocking and pcp f/u.. 07/09 15:05 Order name: CBC with Diff; Complete Time: 16:28 rn 07/09 15:05 Order name: Basic Metabolic Panel; Complete Time: 16:28 rn 07/09 15:05 Order name: IV Start; Complete Time: 15:28 rn 07/09 15:05 Order name: BNP; Complete Time: 16:28 rn 07/09 15:05 Order name: Extrem Venous W Compression Marty US; Complete Time: 16:38 rn Administered Medications: 16:36 Drug: Potassium Chloride 40 mEq Route: PO; ld1 17:10 Follow up: Response: No adverse reaction ld1 Disposition: 07/09/20 17:04 Discharged to Home. Impression: Edema, unspecified. - Condition is Stable. - Discharge Instructions: Peripheral Edema. - Medication Reconciliation Form, Thank You Letter, Antibiotic Education, Prescription Opioid Use form. - Follow up: Private Physician; When: As needed; Reason: Recheck today's complaints, Re-evaluation by your physician. - Problem is an ongoing problem. - Symptoms are unchanged. Signatures: Dispatcher [employer] EDMS Harry Urban MD MD rn Acob, Cheryl, RN RN ca1 Dibbern, Lauren, RN RN ld1 Corrections: (The following items were deleted from the chart) 17:31 17:04 07/09/2020 17:04 Discharged to Home. Impression: Edema, unspecified. Condition is ld1 Stable. Forms are Medication Reconciliation Form, Thank You Letter, Antibiotic Education, Prescription Opioid Use. Follow up: Private Physician; When: As needed; Reason: Recheck today's complaints, Re-evaluation by your physician. Problem is an ongoing problem. Symptoms are unchanged. rn
--- NOTE | 2020-07-09 17:04 | ER ---
Nurse's Notes [facility] Name: Doreen Black Age: 60 yrs Sex: Female : 1960 Arrival Date: 07/09/2020 Time: 11:40 Bed 14 Private MD: Autumn Centeno Diagnosis: Edema, unspecified Presentation: 07/09 12:07 Chief complaint: Patient states: Marty leg pain and swelling started since March 2020. ca1 Pain has been worse and worse and my legs are just very heavy. Coronavirus screen: Client denies travel out of the [place] in the last 14 days. At this time, the client does not indicate any symptoms associated with coronavirus-19. Ebola Screen: Patient negative for fever greater than or equal to 101.5 degrees Fahrenheit, and additional compatible Ebola Virus Disease symptoms Patient denies exposure to infectious person. Patient denies travel to an Ebola-affected area in the 21 days before illness onset. No symptoms or risks identified at this time. Initial Sepsis Screen: Does the patient meet any 2 criteria? No. Patient's initial sepsis screen is negative. Does the patient have a suspected source of infection? No. Patient's initial sepsis screen is negative. Risk Assessment: Do you want to hurt yourself or someone else? Patient reports no desire to harm self or others. Onset of symptoms was July 09, 2020. 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 ca1 Historical: - Allergies: 12:13 No Known Allergies; ca1 - PMHx: 12:13 Depression; Hyperlipidemia; Hypertension; ca1 - PSHx: 12:13 ; Appendectomy; ca1 - Immunization history:: Client reports receiving the 2nd dose of the Covid vaccine, Client reports receiving the 1st dose of the Covid vaccine, Flu vaccine is up to date. - Social history:: Smoking status: Patient denies any tobacco usage or history of. - Family history:: not pertinent. - Hospitalizations: : No recent hospitalization is reported. Screenin:07 Abuse screen: Denies threats or abuse. Denies injuries from another. Nutritional ld1 screening: No deficits noted. Tuberculosis screening: No symptoms or risk factors identified. Fall Risk None identified. Assessment: 15:04 General: Appears in no apparent distress. comfortable, Behavior is calm, cooperative, ld1 appropriate for age. General:. Pain: Denies pain. Neuro: Level of Consciousness is awake, alert, obeys commands, Oriented to person, place, time, situation. Cardiovascular: No deficits noted. Patient's skin is warm and dry. Respiratory: Airway is patent Respiratory effort is even, unlabored, Respiratory pattern is regular, symmetrical. GI: No deficits noted. Abdomen is round non-distended. : No signs and/or symptoms were reported regarding the genitourinary system. EENT: No deficits noted. Derm: No deficits noted. Musculoskeletal: Swelling present in lateral aspect of left calf, left lateral ankle, lateral aspect of left foot, left lawson, anterior aspect of left ankle and dorsum of left foot 3 + Pitting edema to both lower extremities. 16:40 Reassessment: No changes from previously documented assessment. Patient and/or family ld1 updated on plan of care and expected duration. Pain level reassessed. Patient is alert, oriented x 3, equal unlabored respirations, skin warm/dry/pink. Patient denies pain at this time. Vital Signs: 12:07 BP 106 / 48; Pulse 65; Resp 18 S; Temp 97.2; Pulse Ox 97% on R/A; Weight 97.52 kg (R); ca1 Height 5 ft. 2 in. (157.48 cm) (R); 15:07 BP 143 / 76; Pulse 72; Resp 20; Temp 98.0(O); Pulse Ox 99% on R/A; Weight 97.52 kg; ld1 Pain 0/10; 16:15 BP 134 / 69; Pulse 78; Resp 18; Pulse Ox 99% on R/A; Pain 0/10; ld1 15:07 Body Mass Index 39.32 (97.52 kg, 157.48 cm) ld1 ED Course: 11:40 Patient arrived in ED. am2 11:40 Autumn Centeno MD is Private Physician. am2 12:11 Triage completed. ca1 12:13 Arm band placed on right wrist. ca1 14:59 Harry Urban MD is Attending Physician. rn 15:03 Hilda Blanco RN is Primary Nurse. ld1 15:07 Patient has correct armband on for positive identification. Placed in gown. Bed in low ld1 position. Call light in reach. Side rails up X 1. Pulse ox on. NIBP on. Door closed. Noise minimized. Warm blanket given. 15:07 No provider procedures requiring assistance completed. ld1 15:29 Inserted saline lock: 20 gauge in right forearm, using aseptic technique. Blood ld1 collected. 16:15 Extrem Venous W Compression Marty US In Process Unspecified. EDMS 17:31 IV discontinued, intact, bleeding controlled, No redness/swelling at site. ld1 Administered Medications: 16:36 Drug: Potassium Chloride 40 mEq Route: PO; ld1 17:10 Follow up: Response: No adverse reaction ld1 Outcome: 17:04 Discharge ordered by . rn 17:30 Discharged to home ambulatory. ld1 17:30 Condition: stable 17:30 Discharge instructions given to patient, Instructed on discharge instructions, Demonstrated understanding of instructions, follow-up care. 17:31 Patient left the ED. ld1 Signatures: Dispatcher [employer] EDMS Harry Urban MD MD rn Moreno, Amanda am2 Haylee Eagle RN RN ca1 Hilda Blanco RN RN ld1 Corrections: (The following items were deleted from the chart) 15:21 12:07 Chief complaint: Patient states: Marty leg pain and swelling started since March. Pain has worse and worse and my legs are just very heavy. ca1
== END 2020-07-09 17:31 | disposition home or self-care (01) ==
LOC: ER 11:37
DX: R60.0 Localized edema (principal); Z86.718 Personal history of other venous thrombosis and embolism; I10 Essential (primary) hypertension
CPT/HCPCS: 36415; 80048; 83880; 85025; 93970; 99284

== ENCOUNTER 2020-11-06 14:38 | Emergency (ER) | payer OTHER ==
--- OUTSIDE RECORDS SUMMARY | 2020-11-06 14:42 | XMS REPORT | Continuity of Care Document ---
:1960 Author Organization [facility] t Address 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 09/16/2012 [facility] Hypertensi Problem Active 2012-09-16 M emoria on 07:46:38 l Melissa Hypertensi on Active 09/16/2012 [facility] Coronary Problem Active 2012-09-16 Mem oria Arterioscl 07:46:38 l 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 3 [facility] Allergies, Adverse Reactions, Alerts Allergy Allergy Status Severity Reaction(s) Onset Inactive Treating Comm ents Source Name Type Date Date Clinician Dora Adverse Active Info Not [facility] Reaction Available [facility] Lisinopr Adverse Active Info Not [facility] Reaction Available [facility] Social History Social Habit Start Date Stop Date Quantity Comments Source Sex Assigned At [facility] Social History 2012-09-16 2012-09-16 [facility] 07:46:38 07:46:38 Medications Ordered Filled Start Stop Current Ordering Indication Dosage Frequency Signature Comments Components Source Medication Medication Date Date Medication? Clinician (SIG) Name Name BusPIRone BusPIRone Yes Na Centeno [address] [facility] HCl HCl 11-23 [facility] - 00:00: Memoria [facility] Metoprolol Metoprolol Yes Na Centeno [address] [facility] Tartrate Tartrate 11-23 with food Dulce kes - 00:00: oria [facility] ARIPiprazol Yes depression 5mg QD Take [address] [facility] [facility] e (ABILIFY) 7 treatment by mouth [facility] - 5 MG tablet 14:25: adjunct daily. M edical [address] [place] [address] montelukast Yes 10mg QD Take [address] [facility] [facility] (SINGULAIR) 7 by mouth Luke s - 10 mg 14:25: daily. Medical tablet [address] [place] [address] busPIRone Yes QD Take by [facility] (BUSPAR) 5 7- mouth [facility] - MG tablet 14:25: daily. Medica l [address] [place] [address] amLODIPine Yes 5mg QD Take [address] (NORVASC) 7- by mouth [facility] - 10 MG 14:25: daily. Medical tablet 00 [place] PARoxetine Yes 40mg QD Take [address] (PAXIL) 40 7-31 by mouth [facility] - MG tablet 14:25: every Medical 00 morning. [place] omeprazole Yes 20mg QD Take [address] (PRILOSEC) 7-31 by mouth [facility] - 20 MG 14:25: daily. Medical capsule 00 [place] aspirin 81 Yes 81mg QD Take [address] MG EC 7- by mouth [facility] - tablet 14:25: daily. Medical 00 [place] atorvastati Yes 40mg QD Take [address] [facility] [facility] n (LIPITOR) 7-31 by mouth Luke s - 40 MG 14:25: daily. Medical tablet Center Ranitidine Ranitidine Yes Na Centeno [address] [facility] [address] HCl HCl 6-12 at bedtime [facility] - 00:00: Memoria 00 [facility] ent [facility] Flonase Flonase 2017-04 Yes Na Centeno [address] [facility] 2-27 each [facility]: [facility] Potassium Potassium 2017-04 Yes Na Centeno [address] [facility] Chloride ER Chloride ER 1-09 with food [facility] - 00:00: Memoria 00 [facility] Montelukast Montelukast Yes Na Centeno [address] [facility] Sodium Sodium 9-04 in the [facility] - 00:00: evening [facility] 00 [facility] Aspirin 81 Yes (Active) Me moria MG Oral 6-15 l Tablet 07:46: Moise 38 Atorvastati Yes (Active) M emoria n Calcium 6-15 l 80 MG Oral 07:46: Moise Tablet 38 ALPRAZolam Yes (Active) Me moria 0.5 MG Oral 6-15 l Tablet 07:46: Moise 38 Losartan Yes (Active) Roman nikolai Potassium 6-15 l 25 MG Oral 07:46: Moise Tablet 38 PARoxetine Yes (Active) Me moria HCl 10 MG 6-15 l Oral Tablet 07:46: Buddy phillips 38 Flonase Flonase Yes Na Centeno [address] [facility] each [facility] - nostril [facility] Prilosec Prilosec Yes Na Centeno TOME MARCOS [facility] CAPSULA [facility] - POR VIA Memoria ORAL TODOS l [place] [facility] Aspir-81 Aspir-81 Yes Na Centeno [address] [facility] - [facility] Amlodipine Amlodipine Yes Na Cneteno tome marcos [facility] Besylate Besylate tableta Luke s - por via Memoria oral todos l los cueva [facility] Clinics Paxil Paxil Yes Na Centeno [address] [facility] [facility] in the [facility] - morning [facility] Lipitor Lipitor Yes Na Centeno [address] [facility]ics PredniSONE PredniSONE Yes Na Centeno [address] [facility] dailyx 5 [facility] - days then Memoria 1 tablet l daily x 5 Outpati days ent Clinics Cyclobenzap Cyclobenzap Yes Na Centeon [address] rine HCl rine HCl as needed Dulce kes - [facility] Aripiprazol Aripiprazol Yes Na Centeno [address] [facility] Immunizations Ordered Filled Immunization Date Status Comments [facility] Immunization Name Name Flucelvax - single Flucelvax - single 2018-03-[address] [facility] - dose syringe dose syringe 00:00:00 [facility] Procedures This patient has no known procedures. [...] Test 00:00:00 (procedure) [code = Medical Center 93264017] Future Scheduled [address] [facility] - Test 00:00:00 [facility] cervix (procedure) [code = 834156520] Future Scheduled 1977 DTAP/TDAP/TD VACCINES [facility] - Test 00:00:00 (1 - Tdap) [code = Medical C enter DTAP/TDAP/TD VACCINES (1 - Tdap)] Future Scheduled 1976 HEPATITIS C SCREENING [facility] - Test 00:00:00 [code = HEPATITIS C Medical Center SCREENING] Future Scheduled [address] [facility] - Test 00:00:00 [facility] breast (procedure) [code = 330980578] Future Scheduled [address] [facility] - Test 00:00:00 malignant neoplasm of Medica l Center colon (procedure) [code = 580105843] Encounters Start End Encounter Admission Attending Care Care Encounter Source Date/Time Date/Time Type Type Clinicians Facility Department ID 2020-07-21 2020-07-21 Outpatient [facility] [id number] [facility] 2020-07-16 2020-07-16 Outpatient [facility]MLC [facility] [id number] [facility] 2020-07-15 2020-07-15 Outpatient [facility]MLC [facility] [id number] [facility] 2020-07-15 2020-07-15 Outpatient [facility]LMLC STLC [id number] [facility] 2020-07-10 2020-07-10 Outpatient [facility]ML[facility] [id number] [facility] 2020-07-08 2020-07-08 Outpatient [facility]LMLC [facility] [id number] [facility] 2020-06-27 2020-06-27 Outpatient [facility]ML[facility] [id number] [facility] 2020-06-26 2020-06-26 Outpatient [facility]ML[facility] [id number] [facility] 2020-06-24 2020-06-24 Outpatient [facility] [id number] [facility] 2020-06-10 2020-06-10 Outpatient [facility]MLC [facility] [id number] [facility] 2020-06-04 2020-06-04 Outpatient [facility]ML[facility] [id number] [facility] 2020-05-27 2020-05-27 Outpatient [facility]ML[facility] [id number] [facility] 2020-05-08 2020-05-08 Outpatient [facility]MLC [facility] [id number] [facility] 2020-05-06 2020-05-06 Outpatient [facility]ML[facility] [id number] [facility] 2020-04-24 2020-04-24 Outpatient [facility]C STLC [id number] [facility] 2020-03-12 2020-03-12 Outpatient [facility] [id number] [facility] 2020-02-25 2020-02-25 Outpatient [facility]LMLC [facility] [id number] [facility] 2019-10-09 2019-10-09 [facility] [id number] 15:40:00 15:40:00 [place] [employer] [place] [facility] Medicine Outpati ent Clinics 2019-09-06 2019-09-06 [facility] [id number] 12:33:00 12:33:00 [place] [employer] [facility] l Medicine Outpati ent Clinics 2019-08-31 2019-08-31 [facility] [id number] 11:40:00 11:40:00 [place] [employer] [facility] l Medicine Outpati ent Clinics 2019-07-20 2019-07-20 [facility] [id number] 13:20:00 13:20:00 [place] [employer] [facility] l Medicine Outpati ent Clinics 2019-02-23 2019-02-23 [facility] [id number] 08:20:00 08:20:00 [place] [address] [place] [facility] Medicine Outpati ent Clinics 2018-11-23 2018-11-23 [facility] [id number] 13:20:00 13:20:00 [place] [address] [place] [facility] Medicine Outpati ent Clinics 2018-09-13 2018-09-13 [facility] [id number] 12:30:00 12:30:00 [place] [address] [place] [facility] Medicine l Medicine Outpati ent Clinics 2018-09-06 2018-09-06 [facility] [id number] 10:20:00 10:20:00 [place] [address] [place] [facility] Medicine Outpati ent Clinics 2018-06-28 2018-06-28 [facility] [id number] [facility] 15:00:00 15:00:00 [place] [address] [place] [facility] Medicine Outpati ent Clinics 2018-05-02 2018-05-02 [facility] [id number] 10:57:00 10:57:00 [place] [address] [place] [facility] Medicine Outpati ent Clinics 2018-03-30 2018-03-30 [facility] [id number] 15:00:00 15:00:00 [place] [address] [place] [facility] Medicine Outpati ent Clinics 2017-12-06 2017-12-06 [facility] [id number] 11:30:00 11:30:00 [place] [address] [place] [facility] Medicine Outpati ent Clinics 2012-09-16 2012-09-16 BRIAN YODER [id number] Hank teague 02:46:58 07:46:38 jose Phipps 2012-09-16 2012-09-16 Outpatient [id number] 02:46:58 02:46:38 [id number] 2012-08-01 2012-08-01 AUDIT BEBA YODER [id number] Hank teague 10:18:22 15:18:22 jose Phipps 2012-08-01 2012-08-01 Outpatient 1.3.6.1.4 1.3.6.1.4.1 [id number] 10:18:22 10:18:22 [id number] Results Test Description Test Time Test Comments Results Result Sourc e Comments [facility], 2018-11-01 FINAL REPORT PATIENT CAL GRANDE, 12:12:00 ID: [id number] SPECT PROCEDURE:Rest/Stress MYOCARDIAL PERFUSION SCAN with Lexiscan CPT CODE:86446 CLINICAL INDICATION: chest pain PROTOCOL: 10.2 mCi [...] LVEF of 70 %. Signed: [facility] Verified Date/Time: 11/01/2018 12:12:14 Reading Location: [facility] Reading Room ONIN I 2018-11-01 01:02:00 Test Item Value Reference Range Interpretation Comme nts TROPONIN I (BEAKER) (test code = 397) 0.01 ng/mL 0.00-0.15 [...] acidosis, acute neurological disease, and persistent tachyarrhythmia.TROPONIN [id number] 19:42:00 Test Item Value Reference Range Interpretation Comments TROPONIN I (BEAKER) (test code = 0.01 ng/mL 0.00-0.15 397) [...]
--- NOTE | 2020-11-06 20:32 | EDPHYS ---
Physician Documentation [facility] Name: Doreen Black Age: 60 yrs Sex: Female : 1960 Arrival Date: 11/06/2020 Time: 15:25 Bed 14 Private MD: ED Physician Lennox Reveles HPI: 11/06 20:24 This 60 yrs old Female presents to ER via Ambulatory with complaints of Facial cp Swelling. 20:24 The patient presents with broken tooth/teeth, pain. The problem is located in the right cp upper tooth. Onset: The symptoms/episode began/occurred 4 day(s) ago. Duration: The symptoms are continuous, and are steadily getting worse. Associated signs and symptoms: Pertinent positives: swelling, facial, Pertinent negatives: anorexia, chills, dysphagia, fever, inability to eat. Severity of symptoms: in the emergency department the symptoms are unchanged, despite home interventions. Historical: - Allergies: 15:30 No Known Allergies; ca1 - PMHx: 15:30 Depression; Hyperlipidemia; Hypertension; ca1 - Immunization history:: Client reports receiving the 2nd dose of the Covid vaccine, Client reports receiving the 1st dose of the Covid vaccine. - Social history:: Smoking status: Patient denies any tobacco usage or history of. ROS: 20:25 ENT: Positive for dental pain. cp 20:25 Constitutional: Negative for body aches, chills, fever, poor PO intake. cp 20:25 Eyes: Negative for injury, pain, redness, and discharge. cp 20:25 Neck: Negative for pain with movement, pain at rest, stiffness, swelling. 20:25 Respiratory: Negative for cough, shortness of breath, wheezing. 20:25 Skin: Negative for rash. 20:25 Neuro: Negative for headache. 20:25 All other systems are negative. Exam: 20:29 Head/Face: Normocephalic, atraumatic. cp 20:29 Constitutional: The patient appears in no acute distress, alert, awake, comfortable, non-toxic, well developed, well nourished. 20:29 Eyes: Periorbital structures: appear normal, Conjunctiva: normal, no exudate, no injection, Sclera: no appreciated abnormality, Lids and lashes: appear normal, bilaterally. 20:29 ENT: External ear(s): are unremarkable, Ear canal(s): are normal, clear, TM's: dullness, bilaterally, Nose: is normal, Mouth: Lips: moist, Oral mucosa: pink and intact, moist, Gums: normal with healthy appearance, Tongue: is normal, abscess, is not appreciated, Posterior pharynx: Airway: no evidence of obstruction, patent, Dental exam: abscess, is not appreciated, dental caries, that is moderate, diffusely, fractured teeth are noted, specifically the upper left central incisor (#9), pain, that is mild, specifically in the upper left central incisor (#9), Voice: is normal. 20:29 Neck: Lymph nodes: no appreciated lymphadenopathy. Vital Signs: 15:27 BP 132 / 65; Pulse 60; Resp 18 S; Temp 97.6; Pulse Ox 97% on R/A; Weight 90.72 kg (R); ca1 Height 5 ft. 0 in. (152.40 cm) (R); Pain 9/10; 15:27 Body Mass Index 39.06 (90.72 kg, 152.40 cm) ca1 MDM: 19:25 Patient medically screened. cp 20:30 Differential diagnosis: dental caries, gingivitis, dental abscess, pericoronitis. cp 20:31 Data reviewed: vital signs, nurses notes. cp 20:31 Counseling: I had a detailed discussion with the patient and/or guardian regarding: the cp historical points, exam findings, and any diagnostic results supporting the discharge/admit diagnosis, the need for outpatient follow up, for definitive care, a dentist, to return to the emergency department if symptoms worsen or persist or if there are any questions or concerns that arise at home. ED course: VSS. Patient appears non-toxic. Will discharge to home with RX for oral antibiotics. Recommend OTC ibuprofen and/or acetaminophen for pain. Return to ED worsening symptoms. Administered Medications: No medications were administered Disposition: 11/07 02:57 Co-signature as Attending Physician, Lennox Reveles MD. [email or web address] Disposition Summary: 11/06/20 20:31 Discharge Ordered Location: Home cp Problem: new cp Symptoms: are unchanged cp Condition: Stable cp Diagnosis - Other specified disorders of teeth and supporting structures cp Followup: cp - With: Private Physician - When: 2 - 3 days - Reason: Recheck today's complaints Discharge Instructions: - Discharge Summary Sheet cp - Dental Pain cp Forms: - Medication Reconciliation Form cp - Thank You Letter cp - Antibiotic Education cp - Prescription Opioid Use cp Prescriptions: - Amoxicillin 875 mg Oral Tablet - take 1 tablet by ORAL route every 12 hours for 10 days; 20 tablet; Refills: 0, cp Product Selection Permitted - Ibuprofen 800 mg Oral Tablet - take 1 tablet by ORAL route every 8 hours As needed take with food; 30 tablet; cp Refills: 0, Product Selection Permitted Signatures: Farhan Lara PA PA cp Acob, Cheryl, RN RN ca1 Lennox Reveles MD MD [email or web address]
--- NOTE | 2020-11-06 20:32 | ER ---
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 No facial droop. No slurring. States, " it could be my teeth, I went to the doctor and my doctor sent me here". Coronavirus screen: Client denies travel out of the [place] in the last 14 days. At this time, the client does not indicate any symptoms associated with coronavirus-19. Ebola Screen: Patient negative for fever greater than or equal to 101.5 degrees Fahrenheit, and additional compatible Ebola Virus Disease symptoms Patient denies exposure to infectious person. Patient denies travel to an Ebola-affected area in the 21 days before illness onset. No symptoms or risks identified at this time. Initial Sepsis Screen: Does the patient meet any 2 criteria? No. Patient's initial sepsis screen is negative. Does the patient have a suspected source of infection? No. Patient's initial sepsis screen is negative. Risk Assessment: Do you want to hurt yourself or someone else? Patient reports no desire to harm self or others. Onset of symptoms was November 06, 2020. 15:27 Method Of Arrival: Ambulatory ca1 15:27 Acuity: TANIYA 3 ca1 Historical: - Allergies: 15:30 No Known Allergies; ca1 - PMHx: 15:30 Depression; Hyperlipidemia; Hypertension; ca1 - Immunization history:: Client reports receiving the 2nd dose of the Covid vaccine, Client reports receiving the 1st dose of the Covid vaccine. - Social history:: Smoking status: Patient denies any tobacco usage or history of. Screenin:20 Abuse screen: Denies threats or abuse. Nutritional screening: No deficits noted. aa5 Tuberculosis screening: No symptoms or risk factors identified. Fall Risk None identified. Assessment: 19:20 General: Appears comfortable, Behavior is calm, cooperative. Pain: Complains of pain in aa5 upper left central incisor (#9) Pain currently is 2 out of 10 on a pain scale. Quality of pain is described as aching. Neuro: Level of Consciousness is awake, alert, obeys commands, Oriented to person, place, time, situation. Cardiovascular: Patient's skin is warm and dry. Respiratory: Airway is patent Respiratory effort is even, unlabored, Respiratory pattern is regular, symmetrical. GI: No signs and/or symptoms were reported involving the gastrointestinal system. : No signs and/or symptoms were reported regarding the genitourinary system. EENT: Broken tooth noted to left central incisor, pt states "It broke when I was eating an apple about 4 days ago". Derm: Skin is pink, warm \\T\\ dry. Reports swelling to left side of face, no obvious swelling noted. Musculoskeletal: Range of motion: intact in all extremities. 20:40 Reassessment: Patient is alert, oriented x 3, equal unlabored respirations, skin aa5 warm/dry/pink. Vital Signs: 15:27 BP 132 / 65; Pulse 60; Resp 18 S; Temp 97.6; Pulse Ox 97% on R/A; Weight 90.72 kg (R); ca1 Height 5 ft. 0 in. (152.40 cm) (R); Pain 9/10; 15:27 Body Mass Index 39.06 (90.72 kg, 152.40 cm) ca1 ED Course: 15:25 Patient arrived in ED. ca1 15:30 Triage completed. ca1 15:30 Arm band placed on right wrist. ca1 19:20 Patient has correct armband on for positive identification. Bed in low position. Call aa5 light in reach. Side rails up X 1. 19:24 Farhan Lara PA is PHCP. cp 19:24 Lennox Reveles MD is Attending Physician. cp 19:45 Jazmin Sethi, RN is Primary Nurse. aa5 20:40 No provider procedures requiring assistance completed. Patient did not have IV access aa5 during this emergency room visit. Administered Medications: No medications were administered Outcome: 20:31 Discharge ordered by . cp 20:40 Discharged to home ambulatory. aa5 20:40 Condition: stable 20:40 Discharge instructions given to patient, Instructed on discharge instructions, follow up and referral plans. medication usage, Demonstrated understanding of instructions, follow-up care, medications, Prescriptions given X 2. 20:47 Patient left the ED. aa5 Signatures: Jazmin Sethi RN RN aa5 Farhan Lara, PA PA cp Acob, Haylee, RN RN ca1
[2020-11-06 21:23] VITALS: BP 132/65; TEMP 97.6; O2SAT 97
== END 2020-11-06 20:47 | disposition home or self-care (01) ==
LOC: ER 14:38
DX: K08.89 Other specified disorders of teeth and supporting structures (principal); I10 Essential (primary) hypertension
CPT/HCPCS: 99282

== ENCOUNTER 2021-02-28 12:17 | Emergency (ER) | payer OTHER ==
--- OUTSIDE RECORDS SUMMARY | 2021-02-28 12:20 | XMS REPORT | Continuity of Care Document ---
:[address] [facility] t Address 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 09/16/2012 [facility] Hypertensi Problem Active 2012-09-16 M emoria on 07:46:38 l Moise Hypertensi on Active 09/16/2012 [facility] Coronary Problem Active 2012-09-16 Mem oria Arterioscl 07:46:38 l 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 3 [facility] Memory Problem Active 2012-09-16 Memor ia Lapses Or 07:46:38 l Loss Memory [place] Lapses Or Loss Active 3 [facility] Allergies, Adverse Reactions, Alerts Allergy Allergy Status Severity Reaction(s) Onset Inactive Treating Comm ents Source Name Type Date Date Clinician Cozaar Adverse Active Info Not [facility] Lisinopr Adverse Active Info [facility] Social History Social Habit Start Date Stop Date Quantity Comments Source Social History 2012-09-16 2012-09-16 [facility] 07:46:38 07:46:38 Medications Ordered Filled Start Stop Current Ordering Indication Dosage Frequency Signature Comments Components Source Medication Medication Date Date Medication? Clinician (SIG) Name Name BusPIRone BusPIRone Yes Na Centeno [address] [facility] HCl HCl 8-22 [facility] - 00:00: [facility] Metoprolol Metoprolol Yes Na Centeno [address] [facility] Tartrate Tartrate 8-22 with food Dulce kes - 00:00: [facility] Ranitidine Ranitidine Yes Na Centeno [address] [facility] HCl HCl 6-12 at bedtime [facility] - 00:[facility]: [facility] Flonase Flonase 2017-04 Yes Na Centeno [address] [facility] 2-27 each [facility] - 00:00: nostril [facility] Potassium Potassium 2017-04 Yes Na Centeno [address] [facility] Chloride ER Chloride ER 1-09 with food [facility] - 00:00: [facility] 00 [facility] Montelukast Montelukast Yes Na Centeno [address] [facility] Sodium Sodium 9-04 in the [facility] - 00:00: evening [facility] ALPRAZolam Yes (Active) Me moria 0.5 MG Oral 6-15 l Tablet 07:46: [place] 38 Losartan Yes (Active) Roman nikolai Potassium 6-15 l 25 MG Oral 07:46: Moise Tablet 38 PARoxetine Yes (Active) Me moria HCl 10 MG 6-15 l Oral Tablet 07:46: Buddy n 38 Aspirin 81 Yes (Active) Me moria MG Oral 6-15 l Tablet 07:46: Moise 38 Atorvastati Yes (Active) M emoria n Calcium 6-15 l 80 MG Oral 07:46: Moise Tablet 38 Prilosec Prilosec Yes Na Centeno TOME MARCOS [facility] CAP[facility] POR VIA [facility]oria ORAL TODOS l [place] [facility] -81 -81 Yes Na Centeno [address] [facility] Amlodipine Amlodipine Yes Na Centeno tome marcos [facility] Besylate Besylate tableta [facility] - por via [facility] oral todos l [place] [facility] Paxil Paxil Yes Na Centeno [address] [facility] in the [facility] Lipitor Lipitor Yes Na [facility]eno [address] [facility] PredniSONE PredniSONE Yes Na Centeno [address] [facility] dailyx 5 [facility] - days then Memoria 1 tablet l daily x 5 Outpati days ent Clinics Cyclobenzap Cyclobenzap Yes Na Centeno [address] [facility] rine HCl rine HCl as needed Dulce kes [facility] Aripiprazol Aripiprazol Yes Na Centeno [address] [facility] Flonase Flonase Yes Na Centeno [address] [facility] each [facility] nostril [facility] Immunizations Ordered Filled Immunization Date Status Comments [facility] e Immunization Name Name Flucelvax - single Flucelvax - single 2018-03-[address] [facility] - dose syringe dose syringe 00:00:00 [facility] Procedures This patient has no known procedures. Encounters Start End Encounter Admission Attending Care Care Encounter Source Date/Time Date/Time Type Type Clinicians Facility Department ID 2021-01-27 2021-01-27 Outpatient [facility] [id number] [facility] 2021-01-22 2021-01-22 Outpatient [facility] [id number] [facility] 2021-01-14 2021-01-14 Outpatient [facility] [id number] [facility] 2021-01-06 2021-01-06 Outpatient [facility] [id number] [facility] 2020-12-10 2020-12-10 Outpatient [facility] [id number] [facility] 2020-11-27 2020-11-27 Outpatient [facility] [id number] [facility] 2020-11-06 2020-11-06 Out[facility] [id number] [facility] 2020-07-21 2020-07-21 Outpatient [facility] [id number] [facility] 2020-07-16 2020-07-16 Out[facility] [id number] [facility] 2020-07-15 2020-07-15 Out[facility] [id number] [facility] 2020-07-15 2020-07-15 Outpatient [facility] [id number] [facility] 2020-07-10 2020-07-10 Out[facility] [id number] [facility] 2020-07-08 2020-07-08 Out[facility] [id number] [facility] 2020-06-27 2020-06-27 Outpatient [facility] [id number] [facility] 2020-06-26 2020-06-26 Outpatient [facility] [id number] [facility] 2020-06-24 2020-06-24 Outpatient [facility] [id number] [facility] 2020-06-10 2020-06-10 Outpatient [facility] [id number] [facility] 2020-06-04 2020-06-04 Outpatient [facility] [id number] [facility] 2020-05-27 2020-05-27 Outpatient [facility] [id number] [facility] 2020-05-08 2020-05-08 Outpatient [facility] [id number] [facility] 2020-05-06 2020-05-06 Outpatient [facility] [id number] [facility] 2020-04-24 2020-04-24 Outpatient [facility] [id number] [facility] 2020-03-12 2020-03-12 Outpatient [facility] [id number] [facility] 2020-02-25 2020-02-25 Outpatient [facility] [id number] [facility] 2019-10-09 2019-10-09 [facility] [id number] [facility] 15:40:00 15:40:00 t Ider Ider [employer] - [facility] Outpat[facility] Clinics 2019-09-06 2019-09-06 [facility] [id number] 12:33:00 12:33:00 t Ider Ider [employer] - [facility] Out[facility] Clinics 2019-08-31 2019-08-31 [facility] [id number] 11:40:00 11:40:00 t Ider Ider [employer] - [facility] 2019-07-20 2019-07-20 [facility] [id number] 13:20:00 13:20:[address] [facility] - [facility] Medicine l Medicine Outpati ent Clinics 2019-02-23 2019-02-23 [facility] [id number] 08:20:00 08:20:00 t Ider Ider [employer] Luke [facility] - [facility] Medicine Outpati ent Clinics 2018-11-23 2018-11-23 [facility] [id number] 13:20:00 13:20:00 t Ider Ider [employer] Luke s - [facility] Medicine l Medicine Outpati ent Clinics 2018-09-13 2018-09-13 [facility] [id number] 12:30:00 12:30:00 t Ider Ider [employer] s - [facility] Medicine Medicine Outpati ent Clinics 2018-09-06 2018-09-06 [facility] [id number] 10:20:00 10:20:00 t Ider Ider [employer] - [facility] Medicine Medicine Outpati ent Clinics 2018-06-28 2018-06-28 [facility] [id number] 15:00:00 15:00:00 t Ider Ider [employer] - [facility] Medicine l Medicine Outpati ent Clinics 2018-05-02 2018-05-02 [facility] [id number] [facility] 10:57:00 10:57:00 t Ider Ider [employer] - [facility] Medicine Medicine Outpati ent Clinics 2018-03-30 2018-03-30 [facility] [id number] 15:00:00 15:00:00 t Ider Ider [employer] - [facility] Medicine l Medicine Outpati ent Clinics 2017-12-06 2017-12-06 [facility] [id number] [facility] 11:30:00 11:30:00 t Ider Ider [employer] - [facility] Medicine l Medicine Outpati ent Clinics 2012-09-16 2012-09-16 BRIAN YODER [id number] Hank emoria 02:46:58 07:46:38 jose Phipps 2012-08-01 2012-08-01 AUDIT BEBA SANDOVALIE [id number] Hank teague 10:18:22 15:18:22 jose Phipps Results Test Description Test Time Test Comments Results Result Sourc e Comments [facility], 2018-11-01 FINAL REPORT PATIENT CAL GRANDE, 12:12:00 ID: [id number] SPECT PROCEDURE:Rest/Stress MYOCARDIAL PERFUSION SCAN with Lexiscan CPT CODE:[id number] CLINICAL INDICATION: chest pain PROTOCOL: 10.2 mCi [...] LVEF of 70 %. Signed: [facility] Verified Date/Time: 11/01/2018 12:12:14 Reading Location: [facility] Cardiology Reading Room ONIN I 2018-11-01 01:02:00 Test Item Value Reference Range Interpretation Comme nts TROPONIN I (JEFFREYTONO) (test code = 397) 0.01 ng/mL 0.00-0.15 [...] acidosis, acute neurological disease, and persistent tachyarrhythmia.TROPONIN [id number] 19:42:00 Test Item Value Reference Range Interpretation [...]
--- NOTE | 2021-02-28 13:49 | RAD REPORT ---
EXAM DESCRIPTION: CT - Head Brain Wo Cont - 02/28/2021 1:39 pm CLINICAL HISTORY: DIZZINESS COMPARISON: Head Brain Wo Cont dated 06/21/2018; Head Brain Wo Cont dated 09/01/2016CT-STROKE BRAIN W/ O CONTRAST dated 04/21/2012 TECHNIQUE: All CT scans are performed using dose optimization technique as appropriate and may inclu de automated exposure control or mA/KV adjustment according to patient size. FINDINGS: No intracranial hemorrhage, hydrocephalus or extra-axial fluid collection.Remote left sarmad etal infarct. The paranasal sinuses and mastoids are clear. The calvarium is intact. IMPRESSION: No acute intracranial abnormality. Remote left parietal infarct. MRI is more sensitive for acute ischemia.
--- NOTE | 2021-02-28 14:37 | RAD REPORT ---
EXAM DESCRIPTION: RAD - Chest Single View - 02/28/2021 2:03 pm CLINICAL HISTORY: Dizziness COMPARISON: Chest Single View dated 09/06/2018; CHEST SINGLE VIEW dated 04/21/2012; CHEST PA AND LAT 2 VIEW dated 02/02/2012; CHEST SINGLE VIEW dated 02/01/2012 FINDINGS: Lines: None. Lungs: No evidence of edema or pneumonia. Pleural: No significant pleural effusions or pneumothorax. Cardiac: The heart size is within normal limits. Bones: No acute fractures. Other: IMPRESSION: No acute cardiopulmonary disease.
[2021-02-28 14:43] LABS: Absolute Lymphocytes (CBC) 1.1 K/uL (0.7-4.9); Basophils % 0.4 % (0-1.3); Hematocrit 40.8 % (36.0-45.0); Lymphocytes % 13.7 % (15.3-44.8); MPV 8.1 fL (7.6-11.3); RBC Red Blood Cell Count 4.42 M/uL (3.86-4.86)
[2021-02-28 14:44] LABS: Protime INR 0.98
[2021-02-28 14:59] LABS: ALT/SGPT 37 U/L (12-78); AST/SGOT 34 U/L (15-37); Albumin 3.4 g/dL (3.4-5.0); Alkaline Phosphatase 132 U/L (45-117); BUN Blood Urea Nitrogen 20 mg/dL (7-18); Bicarbonate 29 mmol/L (21-32); Bilirubin Direct 0.2 mg/dL (0-0.2); Bilirubin Total 0.8 mg/dL (0.2-1.0); Glucose Level 106 mg/dL (74-106); Magnesium 2.1 mg/dL (1.8-2.4); NT PRO-BNP 274 pg/mL (<125); Potassium 3.6 mmol/L (3.5-5.1); Protein, Total 7.9 g/dL (6.4-8.2); Sodium Level 143 mmol/L (136-145); Troponin (Emerg Dept Use Only) < 0.02 ng/mL (0.0-0.045)
[2021-02-28] MEDS ORDERED: NA CHLORIDE 0.9% 1,000 ML ONE (15:07)
--- NOTE | 2021-02-28 17:19 | ER ---
Nurse's Notes [facility] Name: Doreen Black Age: 60 yrs Sex: Female : 1960 Arrival Date: 02/28/2021 Time: 12:18 Bed 13 Private MD: Autumn Centeno Diagnosis: Acute stress reaction;Dehydration Presentation: 02/28 13:18 Chief complaint: Patient's son or daughter states: thinks she had really high blood iw pressure, she got nauseous, dizzy and fell over, she vomited twice, happened about three hours ago , feeling better but still has dizziness, at home BP was 178/80. Coronavirus screen: At this time, the client does not indicate any symptoms associated with coronavirus-19. Ebola Screen: Patient negative for fever greater than or equal to 101.5 degrees Fahrenheit, and additional compatible Ebola Virus Disease symptoms Patient denies exposure to infectious person. Patient denies travel to an Ebola-affected area in the 21 days before illness onset. No symptoms or risks identified at this time. Initial Sepsis Screen: Does the patient meet any 2 criteria? No. Patient's initial sepsis screen is negative. Does the patient have a suspected source of infection? No. Patient's initial sepsis screen is negative. Risk Assessment: Do you want to hurt yourself or someone else? Patient reports no desire to harm self or others. Onset of symptoms was February 28, 2021. 13:18 Method Of Arrival: Ambulatory iw 13:18 Acuity: TANIYA 3 iw Historical: - Allergies: 14:24 Lisinopril; vg1 14:24 Cozaar; vg1 - Home Meds: 14:24 Metoprolol Tartrate Oral [Active]; Paxil Oral [Active]; aripiprazole oral [Active]; vg1 potassium chloride Oral [Active]; Ranitidine Oral [Active]; Cyclobenzaprine Oral [Active]; Prilosec Oral [Active]; diclofenac oral [Active]; paroxetine oral [Active]; Buspirone Oral [Active]; Furosemide Oral [Active]; Lipitor Oral [Active]; aspirin Oral [Active]; - PMHx: 13:20 Depression; Hyperlipidemia; Hypertension; Anxiety; iw - PSHx: 13:20 None; iw - Immunization history:: Client reports having NOT received the Covid vaccine. - Social history:: Smoking status: Patient denies any tobacco usage or history of. Screenin:45 Abuse screen: Denies threats or abuse. Nutritional screening: No deficits noted. vg1 Tuberculosis screening: No symptoms or risk factors identified. Fall Risk Fall in past 12 months (25 points). No secondary diagnosis (0 pts). IV access (20 points). Ambulatory Aid- None/Bed Rest/Nurse Assist (0 pts). Gait- Normal/Bed Rest/Wheelchair (0 pts) Mental Status- Oriented to own ability (0 pts). Total Tabor Fall Scale indicates High Risk Score (45 or more points). Fall prevention measures have been instituted. Side Rails Up X 2 Placed Close to Nursing Station Family Present and informed to notify staff if the need to leave the bedside. Assessment: 13:45 General: Appears in no apparent distress. comfortable, Behavior is calm, cooperative. vg1 Pain: Denies pain. Neuro: Level of Consciousness is awake, alert, obeys commands, confused, Oriented to person, place, time, situation, Reports dizziness, Denies weakness blurred vision numbness headache. Cardiovascular: Patient's skin is warm and dry. Respiratory: Airway is patent Respiratory effort is even, unlabored. GI: Abdomen is round non-distended, Patient currently denies nausea, vomiting. : No signs and/or symptoms were reported regarding the genitourinary system. EENT: No signs and/or symptoms were reported regarding the EENT system. Derm: Skin is intact, is healthy with good turgor. Musculoskeletal: Circulation, motion, and sensation intact. 14:48 Reassessment: Patient appears in no apparent distress at this time. No changes from vg1 previously documented assessment. Patient and/or family updated on plan of care and expected duration. Pain level reassessed. Patient is alert, oriented x 3, equal unlabored respirations, skin warm/dry/pink. 15:39 Reassessment: Patient appears in no apparent distress at this time. No changes from vg1 previously documented assessment. Patient and/or family updated on plan of care and expected duration. Pain level reassessed. Patient is alert, oriented x 3, equal unlabored respirations, skin warm/dry/pink. Patient denies pain at this time. 16:43 Reassessment: Patient appears in no apparent distress at this time. No changes from vg1 previously documented assessment. Pt resting with eyes closed. 18:46 Reassessment: Patient appears in no apparent distress at this time. Patient and/or vg1 family updated on plan of care and expected duration. Pain level reassessed. Patient is alert, oriented x 3, equal unlabored respirations, skin warm/dry/pink. Patient denies pain at this time. Vital Signs: 13:18 BP 141 / 57; Pulse 61; Resp 16; Temp 97.6; Pulse Ox 100% on R/A; Weight 92.08 kg; iw 13:45 BP 115 / 65; Pulse 65; Resp 18; Pulse Ox 100% ; vg1 14:00 BP 127 / 57; Pulse 63; Resp 16; Pulse Ox 99% ; vg1 14:38 BP 126 / 61 Supine; Pulse 64; vg1 14:40 BP 121 / 62 Sitting; Pulse 66; vg1 14:42 BP 132 / 77 Standing; Pulse 67; vg1 15:30 BP 113 / 81; Pulse 62; Resp 14; Pulse Ox 100% ; vg1 16:30 BP 132 / 56; Pulse 64; Resp 18; Pulse Ox 98% ; vg1 17:30 BP 115 / 64; Pulse 62; Resp 16; Pulse Ox 98% ; vg1 18:30 BP 127 / 50; Pulse 64; Resp 14; Pulse Ox 100% ; vg1 ED Course: 12:18 Patient arrived in ED. as 12:18 Autumn Centeno MD is Private Physician. as 13:20 Triage completed. iw 13:21 Arm band placed on. iw 13:36 Ab Waddell NP is PHCP. pm1 13:36 Farhan Garcia MD is Attending Physician. pm1 13:38 CT Head Brain wo Cont In Process Unspecified. EDMS 13:45 Patient has correct armband on for positive identification. Placed in gown. Bed in low vg1 position. Call light in reach. Side rails up X2. Adult w/ patient. 14:03 XRAY Chest (1 view) In Process Unspecified. EDMS 14:15 Lucretia Ferguson, RN is Primary Nurse. vg1 14:35 Inserted saline lock: 22 gauge in right antecubital area, using aseptic technique. vg1 18:48 No provider procedures requiring assistance completed. IV discontinued, intact, vg1 bleeding controlled, No redness/swelling at site. Pressure dressing applied. Administered Medications: 15:10 Drug: NS 0.9% 1000 ml Route: IV; Rate: bolus; Site: right antecubital; vg1 Outcome: 17:18 Discharge ordered by . pm1 18:47 Discharged to home ambulatory, with family. vg1 18:47 Condition: stable 18:47 Discharge instructions given to patient, family, Instructed on discharge instructions, follow up and referral plans. Demonstrated understanding of instructions, follow-up care. 18:48 Patient left the ED. vg1 Signatures: Dispatcher [employer] Marce West Irene, OSITO RN Ab Waddell, ELROY DOPEMAN pm1 Lucretia Ferguson RN RN vg1 Corrections: (The following items were deleted from the chart) 14:27 13:20 Allergies: No Known Allergies; [facility]
--- NOTE | 2021-02-28 17:19 | EDPHYS ---
Physician Documentation [facility] Name: Doreen Black Age: 60 yrs Sex: Female : 1960 Arrival Date: 02/28/2021 Time: 12:18 Bed 13 Private MD: Autumn Centeno ED Physician Farhan Garcia HPI: 02/28 13:49 This 60 yrs old Female presents to ER via Ambulatory with complaints of pm1 Dizziness, Nausea/Vomiting, High Blood Pressure. 13:49 The patient presents with feeling faint. Onset: The symptoms/episode began/occurred pm1 today. Context: occurred at home, occurred while the patient was standing, just prior to the episode the patient experienced no apparent symptoms. Modifying factors: The symptoms are alleviated by Sitting down, the symptoms are aggravated by changing position. Associated signs and symptoms: Pertinent negatives: abdominal pain, chest pain, nausea, shortness of breath, vomiting. Severity of symptoms: in the emergency department the symptoms are unchanged. The patient has not recently seen a physician. Patient's recently put into a halfway. Patient has not been eating well for the past few days as result of stress and grief related to 's medical condition. Patient was standing up from sitting position and felt some dizziness. She was starting to fall forward and she was caught by her brother. She did not sustain any type of injury. Patient reports dizziness is reproduced with changes in position. Historical: - Allergies: 14:24 Lisinopril; vg1 14:24 Cozaar; vg1 - Home Meds: 14:24 Metoprolol Tartrate Oral [Active]; Paxil Oral [Active]; aripiprazole oral [Active]; vg1 potassium chloride Oral [Active]; Ranitidine Oral [Active]; Cyclobenzaprine Oral [Active]; Prilosec Oral [Active]; diclofenac oral [Active]; paroxetine oral [Active]; Buspirone Oral [Active]; Furosemide Oral [Active]; Lipitor Oral [Active]; aspirin Oral [Active]; - PMHx: 13:20 Depression; Hyperlipidemia; Hypertension; Anxiety; iw - PSHx: 13:20 None; iw - Immunization history:: Client reports having NOT received the Covid vaccine. - Social history:: Smoking status: Patient denies any tobacco usage or history of. ROS: 13:49 Constitutional: Negative for fever, chills, and weight loss, Cardiovascular: Negative pm1 for chest pain, palpitations, and edema, Respiratory: Negative for shortness of breath, cough, wheezing, and pleuritic chest pain, Abdomen/GI: Negative for abdominal pain, nausea, vomiting, diarrhea, and constipation, Back: Negative for injury and pain, MS/Extremity: Negative for injury and deformity, Skin: Negative for injury, rash, and discoloration. 13:49 Neuro: Positive for dizziness, Negative for numbness, tingling. 13:49 All other systems are negative. Exam: 13:49 Constitutional: This is a well developed, well nourished patient who is awake, alert, pm1 and in no acute distress. Head/Face: Normocephalic, atraumatic. 13:49 Back: No spinal tenderness. No costovertebral tenderness. Full range of motion. Skin: Warm, dry with normal turgor. Normal color with no rashes, no lesions, and no evidence of cellulitis. MS/ Extremity: Pulses equal, no cyanosis. Neurovascular intact. Full, normal range of motion. 13:49 Eyes: Exam is negative for acute changes, Extraocular movements: no acute changes, Conjunctiva: no acute changes, no injection, Sclera: no acute changes, icterus, is not appreciated. 13:49 ENT: Exam is negative for acute changes, Mouth: no acute changes. 13:49 Cardiovascular: Exam negative for acute changes, Rate: normal, Rhythm: regular, Pulses: no pulse deficits are appreciated, Heart sounds: normal, Edema: is not appreciated. 13:49 Respiratory: Exam negative for acute changes, respiratory distress, shortness of breath, Breath sounds: are clear throughout. 13:49 Abdomen/GI: Inspection: abdomen appears normal, Palpation: abdomen is soft and non-tender, in all quadrants. 13:49 Neuro: Exam negative for acute changes, Orientation: is normal, appropriate for stated age, Mentation: is normal, Cranial nerves: CN II- XII are normal as tested, Motor: moves all fours, strength is 5/5 in all extremities, Sensation: no obvious gross deficits. Vital Signs: 13:18 BP 141 / 57; Pulse 61; Resp 16; Temp 97.6; Pulse Ox 100% on R/A; Weight 92.08 kg; iw 13:45 BP 115 / 65; Pulse 65; Resp 18; Pulse Ox 100% ; vg1 14:00 BP 127 / 57; Pulse 63; Resp 16; Pulse Ox 99% ; vg1 14:38 BP 126 / 61 Supine; Pulse 64; vg1 14:40 BP 121 / 62 Sitting; Pulse 66; vg1 14:42 BP 132 / 77 Standing; Pulse 67; vg1 15:30 BP 113 / 81; Pulse 62; Resp 14; Pulse Ox 100% ; vg1 16:30 BP 132 / 56; Pulse 64; Resp 18; Pulse Ox 98% ; vg1 17:30 BP 115 / 64; Pulse 62; Resp 16; Pulse Ox 98% ; vg1 18:30 BP 127 / 50; Pulse 64; Resp 14; Pulse Ox 100% ; vg1 MDM: 13:40 Patient medically screened. ayush 17:16 Data reviewed: vital signs. Data interpreted: Pulse oximetry: on room air is 98 %. pm1 Interpretation: normal. Counseling: I had a detailed discussion with the patient and/or guardian regarding: the historical points, exam findings, and any diagnostic results supporting the discharge/admit diagnosis, lab results, radiology results, the need for outpatient follow up, to return to the emergency department if symptoms worsen or persist or if there are any questions or concerns that arise at home. 17:16 ED course: Patient's dizziness resolved with IV fluids given in the ER. Patient able to pm1 get up and walk without any dizziness in the ER. 02/28 13:42 Order name: Basic Metabolic Panel pm1 02/28 13:42 Order name: CBC with Diff; Complete Time: 14:49 pm1 02/28 13:42 Order name: LFT's; Complete Time: 15:02 pm1 02/28 13:42 Order name: Magnesium; Complete Time: 15:02 pm1 02/28 13:42 Order name: NT PRO-BNP; Complete Time: 15:02 pm1 02/28 13:42 Order name: PT-INR; Complete Time: 14:49 pm1 02/28 13:23 Order name: CT Head Brain wo Cont; Complete Time: 14:11 iw 02/28 13:42 Order name: Troponin (emerg Dept Use Only); Complete Time: 15:02 pm1 02/28 13:42 Order name: XRAY Chest (1 view); Complete Time: 14:40 pm1 02/28 13:42 Order name: EKG; Complete Time: 13:42 pm1 02/28 13:42 Order name: Cardiac monitoring; Complete Time: 14:47 pm1 02/28 13:42 Order name: EKG - Nurse/Tech; Complete Time: 14:47 pm1 02/28 13:42 Order name: Basic Metabolic Panel; Complete Time: 15:02 EDMS 02/28 13:42 Order name: IV Saline Lock; Complete Time: 14:47 pm1 02/28 13:42 Order name: Labs collected and sent; Complete Time: 14:47 pm1 02/28 13:42 Order name: O2 Per Protocol; Complete Time: 14:47 pm1 02/28 13:42 Order name: O2 Sat Monitoring; Complete Time: 14:47 pm1 02/28 13:49 Order name: Orthostatics; Complete Time: 14:47 pm1 Administered Medications: 15:10 Drug: NS 0.9% 1000 ml Route: IV; Rate: bolus; Site: right antecubital; vg1 Disposition: 03/01 09:23 Co-signature as Attending Physician, Farhan Garcia MD I agree with the assessment and ayush plan of care. Disposition Summary: 02/28/21 17:18 Discharge Ordered Location: Home pm1 Problem: new pm1 Symptoms: have improved pm1 Condition: Stable pm1 Diagnosis - Acute stress reaction pm1 - Dehydration pm1 Followup: pm1 - With: Emergency Department - When: As needed - Reason: Worsening of condition Followup: pm1 - With: Private Physician - When: 2 - 3 days - Reason: Recheck today's complaints, Continuance of care, Re-evaluation by your physician Discharge Instructions: - Discharge Summary Sheet pm1 - Dehydration, Elderly pm1 - Stress, Adult pm1 - Rehydration, Elderly pm1 - Managing Stress, Adult pm1 Forms: - Medication Reconciliation Form pm1 - Thank You Letter pm1 - Antibiotic Education pm1 - Prescription Opioid Use pm1 Signatures: Dispatcher [employer] Farhan Obrien MD MD cha Williams, Irene, RN RN iw Ab Waddell, DIRECT MARKETING ANALYST DIRECT MARKETING ANALYST pm1 Lucretia Ferguson RN RN vg1 Corrections: (The following items were deleted from the chart) 02/28 14: 13:20 Allergies: No Known Allergies; iw vg1
[2021-02-28 18:54] VITALS: TEMP 97.6
[2021-02-28 19:09] VITALS: BP 127/50; O2SAT 100
== END 2021-02-28 18:48 | disposition home or self-care (01) ==
LOC: ER 12:17
DX: F43.0 Acute stress reaction (principal); E86.0 Dehydration; I10 Essential (primary) hypertension; F32.A Depression, unspecified; F41.9 Anxiety disorder, unspecified; Z88.8 Allergy status to other drugs, medicaments and biological substances
CPT/HCPCS: 93005; 85025; 80048; 36415; 83735; 85610; 80076; 84484; 83880; 70450; 71045; 99284; J7030

== ENCOUNTER 2021-10-13 12:20 | Emergency (ER) | payer OTHER ==
[2021-10-13 14:25] LABS: Absolute Lymphocytes (CBC) 1.6 K/uL (0.7-4.9); Hematocrit 40.6 % (36.0-45.0); MPV 7.9 fL (7.6-11.3); RBC Red Blood Cell Count 4.41 M/uL (3.86-4.86)
--- NOTE | 2021-10-13 14:36 | RAD REPORT ---
EXAM DESCRIPTION: RAD - Chest Single View - 10/13/2021 2:18 pm CLINICAL HISTORY: CHEST PAIN Chest pain. COMPARISON: Chest Single View dated 02/28/2021; Chest Single View dated 09/06/2018; CHEST SINGLE VIEW dated 04/21/2012; CHEST PA AND LAT 2 VIEW dated 02/02/2012 FINDINGS: Portable technique limits examination quality. The lungs are grossly clear. The heart is normal in size. No displaced fractures. IMPRESSION: No acute intrathoracic process suspected.
[2021-10-13 14:39] LABS: Troponin High Sensitivity 10.2 pg/mL (<58.9)
--- NOTE | 2021-10-13 15:11 | EDPHYS ---
Physician Documentation [facility] Name: Doreen Black Age: 61 yrs Sex: Female : 1960 Arrival Date: 10/13/2021 Time: 12:22 Bed 19 Private MD: Autumn Centeno ED Physician Harry Urban HPI: 10/13 14:46 This 61 yrs old Female presents to ER via Ambulatory with complaints of Chest kb Pain, Headache, Vomiting. 14:46 The patient or guardian reports chest pain that is located primarily in the epigastric kb area. Onset: last night. The pain does not radiate. Associated signs and symptoms: Pertinent positives: headache, nausea, vomiting. The chest pain is described as a pressure. Duration: The patient or guardian reports a single episode. Modifying factors: The symptoms are alleviated by nothing. the symptoms are aggravated by nothing. Severity of pain: At its worst the pain was moderate in the emergency department the pain has resolved. The patient has not experienced similar symptoms in the past. The patient has not recently seen a physician. Pt reports headache, chest pain, nausea and vomiting that started at midnight last night and resolved at 0300. States she has been asymptomatic since 0300. Historical: - Allergies: 12:34 Cozaar; ap3 12:34 Lisinopril; ap3 - PMHx: 12:34 Anxiety; Depression; Hyperlipidemia; Hypertension; ap3 - Immunization history:: Client reports receiving the 2nd dose of the Covid vaccine. - Social history:: Smoking status: Patient denies any tobacco usage or history of. ROS: 14:44 Constitutional: Negative for fever, chills, and weight loss. kb 14:44 All other systems are negative. Exam: 14:44 Constitutional: This is a well developed, well nourished patient who is awake, alert, kb and in no acute distress. Head/Face: Normocephalic, atraumatic. ENT: Moist Mucous membranes Cardiovascular: Regular rate and rhythm with a normal S1 and S2. No gallops, murmurs, or rubs. No pulse deficits. Respiratory: Respirations even and unlabored. No increased work of breathing. Talking in full sentences Abdomen/GI: Soft, non-tender. No distention Skin: Warm, dry with normal turgor. Normal color. MS/ Extremity: Pulses equal, no cyanosis. Neurovascular intact. Full, normal range of motion. Neuro: Awake and alert, GCS 15, oriented to person, place, time, and situation. Moves all extremities. Normal gait. Psych: Awake, alert, with orientation to person, place and time. Behavior, mood, and affect are within normal limits. 14:45 ECG was reviewed by the Attending Physician. Vital Signs: 12:33 BP 126 / 70; Pulse 57; Resp 19; Temp 98.5; Pulse Ox 98% ; Weight 92.99 kg; Height 5 ft. ap3 3 in. (160.02 cm); 14:45 BP 115 / 47; Pulse 61; Resp 20; Pulse Ox 98% on R/A; tw2 12:33 Body Mass Index 36.31 (92.99 kg, 160.02 cm) ap3 MDM: 13:48 Patient medically screened. 14:43 Data reviewed: vital signs, nurses notes. Data interpreted: Pulse oximetry: on room air kb is 98 %. Interpretation: normal. Test interpretation: by ED physician or midlevel provider:. 14:45 Counseling: I had a detailed discussion with the patient and/or guardian regarding: the historical points, exam findings, and any diagnostic results supporting the discharge/admit diagnosis, lab results, radiology results, the need for outpatient follow up, a family practitioner, to return to the emergency department if symptoms worsen or persist or if there are any questions or concerns that arise at home. 15:09 Data reviewed: I have discussed the patient's presentation/case with the attending Emergency Department Physician;. 10/13 13:48 Order name: Basic Metabolic Panel; Complete Time: 14:42 kb 10/13 13:48 Order name: CBC with Diff; Complete Time: 14:36 kb 10/13 13:48 Order name: Troponin HS; Complete Time: 14:42 kb 10/13 13:48 Order name: XRAY Chest (1 view); Complete Time: 14:38 kb 10/13 13:48 Order name: EKG; Complete Time: 13:49 kb 10/13 13:48 Order name: Cardiac monitoring; Complete Time: 14:39 kb 10/13 13:48 Order name: EKG - Nurse/Tech; Complete Time: 13:52 kb 10/13 13:48 Order name: IV Saline Lock; Complete Time: 14:10 kb 10/13 13:48 Order name: Labs collected and sent; Complete Time: 14:10 kb 10/13 13:48 Order name: O2 Per Protocol; Complete Time: 14:10 kb 10/13 13:48 Order name: O2 Sat Monitoring; Complete Time: 14:39 kb EC:45 Rate is 57 beats/min. Rhythm is regular. QRS [place] is Normal. MN interval is normal at kb 168 msec. QRS interval is normal at 86 msec. QT interval is normal at 478 msec. Administered Medications: No medications were administered Disposition: 18:50 Co-signature as Attending Physician, Harry Urban MD. rn Disposition Summary: 10/13/21 15:10 Discharge Ordered Location: Home kb Condition: Stable kb Diagnosis - Chest pain, unspecified kb Followup: kb - With: Emergency Department - When: As needed - Reason: Worsening of condition Followup: kb - With: Private Physician - When: 2 - 3 days - Reason: Recheck today's complaints, Continuance of care, Re-evaluation by your physician Discharge Instructions: - Discharge Summary Sheet kb - Nonspecific Chest Pain, Adult, [id number] kb Forms: - Medication Reconciliation Form kb - Thank You Letter kb - Antibiotic Education kb - Prescription Opioid Use kb Signatures: Dispatcher [employer] EDMary Sneed, SPICE MIXER-C SPICE MIXER-Ckb Harry Urban MD MD rn Prokisch, Amanda, RN RN ap3
--- NOTE | 2021-10-13 15:11 | ER ---
Nurse's Notes [facility] Name: Doreen Black Age: 61 yrs Sex: Female : 1960 Arrival Date: 10/13/2021 Time: 12:22 Bed 19 Private MD: Autumn Centeno Diagnosis: Chest pain, unspecified Presentation: 10/13 12:33 Chief complaint: Patient states: she started having chest pain, headache and ap3 nausea/vomiting last night around midnight. patient denies cough/congestion. Patient reports the paid to be mid sternal and does not radiate. Coronavirus screen: Client presents with at least one sign or symptom that may indicate coronavirus-19. Ebola Screen: No symptoms or risks identified at this time. Initial Sepsis Screen: Does the patient meet any 2 criteria? No. Patient's initial sepsis screen is negative. Does the patient have a suspected source of infection? No. Patient's initial sepsis screen is negative. Risk Assessment: Do you want to hurt yourself or someone else? Patient reports no desire to harm self or others. Onset of symptoms was October 13, 2021 at 00:00. 12:33 Method Of Arrival: Ambulatory ap3 12:33 Acuity: TANIYA 3 ap3 Triage Assessment: 12:35 General: Appears in no apparent distress. Behavior is calm, cooperative. Pain: ap3 Complains of pain in xiphoid area and head Pain began gradually, last night. Neuro: Level of Consciousness is awake, alert, obeys commands, Oriented to person, place, time, situation, Gait is steady. Neuro: Reports headache. Cardiovascular: Patient's skin is warm and dry. Cardiovascular: Reports chest pain, vomiting. Respiratory: Airway is patent Respiratory effort is even, unlabored, Respiratory pattern is regular, symmetrical. GI: Reports nausea, vomiting. Historical: - Allergies: 12:34 Cozaar; ap3 12:34 Lisinopril; ap3 - PMHx: 12:34 Anxiety; Depression; Hyperlipidemia; Hypertension; ap3 - Immunization history:: Client reports receiving the 2nd dose of the Covid vaccine. - Social history:: Smoking status: Patient denies any tobacco usage or history of. Screenin:36 Abuse screen: Denies threats or abuse. Nutritional screening: No deficits noted. ap3 Tuberculosis screening: No symptoms or risk factors identified. 14:39 Fall Risk None identified. tw2 Assessment: 12:36 Pain: Pain does not radiate. ap3 14:45 Reassessment: Patient appears in no apparent distress at this time. No changes from tw2 previously documented assessment. Patient and/or family updated on plan of care and expected duration. Pain level reassessed. Patient is alert, oriented x 3, equal unlabored respirations, skin warm/dry/pink. 15:03 Reassessment: provider at bedside at this time. tw2 Vital Signs: 12:33 BP 126 / 70; Pulse 57; Resp 19; Temp 98.5; Pulse Ox 98% ; Weight 92.99 kg; Height 5 ft. ap3 3 in. (160.02 cm); 14:45 BP 115 / 47; Pulse 61; Resp 20; Pulse Ox 98% on R/A; tw2 12:33 Body Mass Index 36.31 (92.99 kg, 160.02 cm) ap3 ED Course: 12:22 Patient arrived in ED. mr 12:22 Autumn Centeno MD is Private Physician. mr 12:34 Triage completed. ap3 12:36 Arm band placed on left wrist. ap3 12:36 Patient maintains SpO2 saturation greater than 95% on room air. ap3 13:06 Mary Quiñones F[facility]-C is [facility]. kb 13:06 Harry Urban MD is Attending Physician. kb 14:02 Bed in low position. Call light in reach. Adult w/ patient. campus monitor on. Pulse tw2 ox on. NIBP on. 14:10 Tracy Toribio, OSITO is Primary Nurse. ss 14:10 Inserted saline lock: 22 gauge in right forearm, using aseptic technique. Blood ss collected. 14:19 XRAY Chest (1 view) In Process Unspecified. EDMS 14:45 Primary Nurse role handed off by Tracy Toribio, OSITO tw2 14:45 Nadira Saleem RN is Primary Nurse. tw2 15:28 No provider procedures requiring assistance completed. IV discontinued, intact, tw2 bleeding controlled, No redness/swelling at site. Pressure dressing applied. Administered Medications: No medications were administered Medication: 15:03 VIS not applicable for this client. tw2 Outcome: 15:10 Discharge ordered by . kb 15:28 Discharged to home ambulatory, with family. tw2 15:28 Condition: stable 15:28 Discharge instructions given to patient, family, Instructed on discharge instructions, follow up and referral plans. Demonstrated understanding of instructions, follow-up care. 15:28 Patient left the ED. tw2 Signatures: Dispatcher [employer] EDMary Sneed, MECHANICAL PENCILS ASSEMBLER-C MECHANICAL PENCILS ASSEMBLER-Antony Maria Luisa Mederos mr Malu, Tracy, RN RN ss Nadira Saleem RN RN tw2 Lynn Martin RN RN ap3
[2021-10-13 16:25] VITALS: TEMP 98.5; O2SAT 98
[2021-10-13 16:26] VITALS: BP 115/47
--- NOTE | 2021-10-14 07:51 | EKG ---
Test Date: 2021-10-13 Test Time: 12:44:41 Utility Tractor Operator: ALP MEASUREMENT RESULTS: Intervals: Rate: 57 WA: 168 QRSD: 86 QT: 492 QTc: 478 [place]: P: 54 WA: 168 QRS: 41 T: 65 INTERPRETIVE STATEMENTS: Sinus bradycardia Otherwise normal ECG Compared to ECG 02/28/2021 14:12:07 Sinus rhythm no longer present Electronically Signed On 10-14-21 07:48:29 CDT by Jose J Claire
== END 2021-10-13 15:28 | disposition home or self-care (01) ==
LOC: ER 12:20
DX: R07.89 Other chest pain (principal); R51.9 Headache, unspecified; R11.2 Nausea with vomiting, unspecified; I10 Essential (primary) hypertension; Z88.8 Allergy status to other drugs, medicaments and biological substances
CPT/HCPCS: 36415; 71045; 80048; 84484; 85025; 93005; 99285

== ENCOUNTER 2023-01-04 23:23 | Emergency (ER) | payer SELFPAY ==
--- OUTSIDE RECORDS SUMMARY | 2023-01-04 23:29 | XMS REPORT | Continuity of Care Document ---
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 ARIPiprazol No 1{table QD ARIPiprazo e 5 MG e 5 MG t} le 5 MG PriLOSEC 20 PriLOSEC 20 No PriLOSEC MG MG 20 MG Flonase 50 Flonase 50 No 2{spray QD Flonase 50 MCG/ACT MCG/ACT _in_eac MCG/ACT h_nostr il} Lipitor 40 Lipitor 40 No 1{table QD Lipitor 40 MG MG t} MG PARoxetine PARoxetine No PARoxetine HCl 40 MG HCl 40 MG HCl 40 MG Ranitidine Ranitidine No 1{table QD Ranitidine HCl 150 MG HCl 150 MG t_at_be HCl 150 MG dtime} Montelukast Montelukast No 1{table QD Montelukas Sodium 10 Sodium 10 t_in_th t Sodium MG MG e_eveni 10 MG ng} Furosemide Furosemide No 1{table Furosemide 40 MG 40 MG t} 40 MG busPIRone busPIRone No 1{table BID busPIRone HCl 15 MG HCl 15 MG t} HCl 15 MG Potassium Potassium No Potassium Chloride ER Chloride ER Chloride 20 MEQ 20 MEQ ER 20 MEQ Aspir-81 81 Aspir-81 81 No 1{table QD Aspir-81 MG MG t} 81 MG Meclizine Meclizine No 1{table Meclizine HCl 25 MG HCl 25 MG t_as_ne HCl 25 MG eded} Cyclobenzap Cyclobenzap No 1{table Cyclobenza rine HCl 10 rine HCl 10 t_as_ne justen HCl MG MG eded} 10 MG Furosemide Furosemide No 1{table Furosemide 40 MG 40 MG t} 40 MG Metoprolol Metoprolol No 1{table BID Metoprolol Tartrate Tartrate t_with_ Tartrate 100 MG 100 MG food} 100 MG Ranitidine Ranitidine No 1{table QD Ranitidine HCl 150 MG HCl 150 MG t_at_be HCl 150 MG dtime} Flonase 50 Flonase 50 No 2{spray QD Flonase 50 MCG/ACT MCG/ACT _in_eac MCG/ACT h_nostr il} Aspir-81 81 Aspir-81 81 No 1{table QD Aspir-81 MG MG t} 81 MG Potassium Potassium No Potassium Chloride ER Chloride ER Chloride 20 MEQ 20 MEQ ER 20 MEQ PriLOSEC 20 PriLOSEC 20 No PriLOSEC MG MG 20 MG Montelukast Montelukast No Montelukas Sodium 10 Sodium 10 t Sodium MG MG 10 MG ARIPiprazol ARIPiprazol No 1{table QD ARIPiprazo e 5 MG e 5 MG t} le 5 MG Atorvastati Atorvastati No Atorvastat n Calcium n Calcium in Calcium 40 MG 40 MG 40 MG busPIRone busPIRone No 1{table BID busPIRone HCl 15 MG HCl 15 MG t} HCl 15 MG Diclofenac Diclofenac No 1{table Diclofenac Sodium 50 Sodium 50 t_with_ Sodium 50 MG MG food_or MG _milk} ARIPiprazol ARIPiprazol No 1{table QD ARIPiprazo e 5 MG e 5 MG t} le 5 MG Ranitidine Ranitidine No 1{table QD Ranitidine HCl 150 MG HCl 150 MG t_at_be HCl 150 MG dtime} Flonase 50 Flonase 50 No 2{spray QD Flonase 50 MCG/ACT MCG/ACT _in_eac MCG/ACT h_nostr il} Metoprolol Metoprolol No 1{table BID Metoprolol Tartrate Tartrate t_with_ Tartrate 100 MG 100 MG food} 100 MG Meclizine Meclizine No Meclizine HCl 25 MG HCl 25 MG HCl 25 MG Potassium Potassium No Potassium Chloride ER Chloride ER Chloride 20 MEQ 20 MEQ ER 20 MEQ Cyclobenzap Cyclobenzap No 1{table Cyclobenza rine HCl 10 rine HCl 10 t_as_ne justen HCl MG MG eded} 10 MG Furosemide Furosemide No 1{table Furosemide 40 MG 40 MG t} 40 MG Atorvastati Atorvastati No Atorvastat n Calcium n Calcium in Calcium 40 MG 40 MG 40 MG Diclofenac Diclofenac No 1{table Diclofenac Sodium 50 Sodium 50 t_with_ Sodium 50 MG MG food_or MG _milk} Aspir-81 81 Aspir-81 81 No 1{table QD Aspir-81 MG MG t} 81 MG busPIRone busPIRone No 1{table BID busPIRone HCl 15 MG HCl 15 MG t} HCl 15 MG PriLOSEC 20 PriLOSEC 20 No PriLOSEC MG MG 20 MG Montelukast Montelukast No Montelukas Sodium 10 Sodium 10 t Sodium MG MG 10 MG Furosemide Furosemide No 1{table Furosemide 40 MG 40 MG t} 40 MG Diclofenac Diclofenac No 1{table Diclofenac Sodium 50 Sodium 50 t_with_ Sodium 50 MG MG food_or MG _milk} Cetirizine Cetirizine No 1{table QD Cetirizine HCl 10 MG HCl 10 MG t} HCl 10 MG Montelukast Montelukast No Montelukas Sodium 10 Sodium 10 t Sodium MG MG 10 MG Flonase 50 Flonase 50 No 2{spray QD Flonase 50 MCG/ACT MCG/ACT _in_eac MCG/ACT h_nostr il} Meclizine Meclizine No 1{table Meclizine HCl 25 MG HCl 25 MG t_as_ne HCl 25 MG eded} Ranitidine Ranitidine No 1{table QD Ranitidine HCl 150 MG HCl 150 MG t_at_be HCl 150 MG dtime} busPIRone busPIRone No 1{table BID busPIRone HCl 15 MG HCl 15 MG t} HCl 15 MG Escitalopra Escitalopra No 1{table QD Escitalopr m Oxalate m Oxalate t} am Oxalate 20 MG 20 MG 20 MG Methocarbam Methocarbam No 1{table Methocarba ol 500 MG ol 500 MG t} mol 500 MG Flonase 50 Flonase 50 No 1{spray QD Flonase 50 MCG/DOSE MCG/DOSE _in_eac MCG/DOSE h_nostr il} Metoprolol Metoprolol No BID Metoprolol Tartrate Tartrate Tartrate 100 MG 100 MG 100 MG Meclizine Meclizine No Meclizine HCl 25 MG HCl 25 MG HCl 25 MG PriLOSEC 20 PriLOSEC 20 No PriLOSEC MG MG 20 MG Potassium Potassium No Potassium Chloride ER Chloride ER Chloride 20 MEQ 20 MEQ ER 20 MEQ Atorvastati Atorvastati No QD Atorvastat n Calcium n Calcium in Calcium 40 MG 40 MG 40 MG buPROPion buPROPion No 1{table QD buPROPion HCl ER (XL) HCl ER (XL) t_in_th HCl ER 150 MG 150 MG e_morni (XL) 150 ng} MG Aspir-81 81 Aspir-81 81 No 1{table QD Aspir-81 MG MG t} 81 MG Metoprolol Metoprolol No BID Metoprolol Tartrate Tartrate Tartrate 100 MG 100 MG 100 MG PriLOSEC 20 PriLOSEC 20 No PriLOSEC MG MG 20 MG buPROPion buPROPion No 1{table QD buPROPion HCl ER (XL) HCl ER (XL) t_in_th HCl ER 150 MG 150 MG e_morni (XL) 150 ng} MG Atorvastati Atorvastati No QD Atorvastat n Calcium n Calcium in Calcium 40 MG 40 MG 40 MG Ranitidine Ranitidine No 1{table QD Ranitidine HCl 150 MG HCl 150 MG t_at_be HCl 150 MG dtime} Cetirizine Cetirizine No 1{table QD Cetirizine HCl 10 MG HCl 10 MG t} HCl 10 MG Methocarbam Methocarbam No 1{table Methocarba ol 500 MG ol 500 MG t} mol 500 MG Potassium Potassium No Potassium Chloride ER Chloride ER Chloride 20 MEQ 20 MEQ ER 20 MEQ Furosemide Furosemide No 1{table Furosemide 40 MG 40 MG t} 40 MG busPIRone busPIRone No 1{table BID busPIRone HCl 15 MG HCl 15 MG t} HCl 15 MG Flonase 50 Flonase 50 No 1{spray QD Flonase 50 MCG/DOSE MCG/DOSE _in_eac MCG/DOSE h_nostr il} Flonase 50 Flonase 50 No 2{spray QD Flonase 50 MCG/ACT MCG/ACT _in_eac MCG/ACT h_nostr il} Montelukast Montelukast No Montelukas Sodium 10 Sodium 10 t Sodium MG MG 10 MG Aspir-81 81 Aspir-81 81 No 1{table QD Aspir-81 MG MG t} 81 MG Meclizine Meclizine No Meclizine HCl 25 MG HCl 25 MG HCl 25 MG Diclofenac Diclofenac No 1{table Diclofenac Sodium 50 Sodium 50 t_with_ Sodium 50 MG MG food_or MG _milk} Escitalopra Escitalopra No 1{table QD Escitalopr m Oxalate m Oxalate t} am Oxalate 20 MG 20 MG 20 MG Meclizine Meclizine No 1{table Meclizine HCl 25 MG HCl 25 MG t_as_ne HCl 25 MG eded} Metoprolol Metoprolol No BID Metoprolol Tartrate Tartrate Tartrate 100 MG 100 MG 100 MG PriLOSEC 20 PriLOSEC 20 No PriLOSEC MG MG 20 MG buPROPion buPROPion No 1{table QD buPROPion HCl ER (XL) HCl ER (XL) t_in_th HCl ER 150 MG 150 MG e_morni (XL) 150 ng} MG Atorvastati Atorvastati No QD Atorvastat n Calcium n Calcium in Calcium 40 MG 40 MG 40 MG Ranitidine Ranitidine No 1{table QD Ranitidine HCl 150 MG HCl 150 MG t_at_be HCl 150 MG dtime} Cetirizine Cetirizine No 1{table QD Cetirizine HCl 10 MG HCl 10 MG t} HCl 10 MG Methocarbam Methocarbam No 1{table Methocarba ol 500 MG ol 500 MG t} mol 500 MG Potassium Potassium No Potassium Chloride ER Chloride ER Chloride 20 MEQ 20 MEQ ER 20 MEQ Furosemide Furosemide No 1{table Furosemide 40 MG 40 MG t} 40 MG busPIRone busPIRone No 1{table BID busPIRone HCl 15 MG HCl 15 MG t} HCl 15 MG Flonase 50 Flonase 50 No 1{spray QD Flonase 50 MCG/DOSE MCG/DOSE _in_eac MCG/DOSE h_nostr il} Flonase 50 Flonase 50 No 2{spray QD Flonase 50 MCG/ACT MCG/ACT _in_eac MCG/ACT h_nostr il} Montelukast Montelukast No Montelukas Sodium 10 Sodium 10 t Sodium MG MG 10 MG Aspir-81 81 Aspir-81 81 No 1{table QD Aspir-81 MG MG t} 81 MG Meclizine Meclizine No Meclizine HCl 25 MG HCl 25 MG HCl 25 MG Diclofenac Diclofenac No 1{table Diclofenac Sodium 50 Sodium 50 t_with_ Sodium 50 MG MG food_or MG _milk} Escitalopra Escitalopra No 1{table QD Escitalopr m Oxalate m Oxalate t} am Oxalate 20 MG 20 MG 20 MG Meclizine Meclizine No 1{table Meclizine HCl 25 MG HCl 25 MG t_as_ne HCl 25 MG eded} Aspir-81 81 Aspir-81 81 No 1{table QD Aspir-81 MG MG t} 81 MG Montelukast Montelukast No Montelukas Sodium 10 Sodium 10 t Sodium MG MG 10 MG Flonase 50 Flonase 50 No 1{spray QD Flonase 50 MCG/DOSE MCG/DOSE _in_eac MCG/DOSE h_nostr il} PriLOSEC 20 PriLOSEC 20 No PriLOSEC MG MG 20 MG Meclizine Meclizine No Meclizine HCl 25 MG HCl 25 MG HCl 25 MG Furosemide Furosemide No 1{table Furosemide 40 MG 40 MG t} 40 MG Flonase 50 Flonase 50 No 2{spray QD Flonase 50 MCG/ACT MCG/ACT _in_eac MCG/ACT h_nostr il} Potassium Potassium No Potassium Chloride ER Chloride ER Chloride 20 MEQ 20 MEQ ER 20 MEQ busPIRone busPIRone No 1{table BID busPIRone HCl 15 MG HCl 15 MG t} HCl 15 MG Escitalopra Escitalopra No 1{table QD Escitalopr m Oxalate m Oxalate t} am Oxalate 20 MG 20 MG 20 MG buPROPion buPROPion No 1{table QD buPROPion HCl ER (XL) HCl ER (XL) t_in_th HCl ER 150 MG 150 MG e_morni (XL) 150 ng} MG Ranitidine Ranitidine No 1{table QD Ranitidine HCl 150 MG HCl 150 MG t_at_be HCl 150 MG dtime} Metoprolol Metoprolol No BID Metoprolol Tartrate Tartrate Tartrate 100 MG 100 MG 100 MG Diclofenac Diclofenac No 1{table Diclofenac Sodium 50 Sodium 50 t_with_ Sodium 50 MG MG food_or MG _milk} Cyclobenzap Cyclobenzap No 1{table Cyclobenza rine HCl 10 rine HCl 10 t_as_ne justen HCl MG MG eded} 10 MG Methocarbam Methocarbam No 1{table Methocarba ol 500 MG ol 500 MG t} mol 500 MG Atorvastati Atorvastati No QD Atorvastat n Calcium n Calcium in Calcium 40 MG 40 MG 40 MG Cetirizine Cetirizine No 1{table QD Cetirizine HCl 10 MG HCl 10 MG t} HCl 10 MG Aspir-81 81 Aspir-81 81 No 1{table QD Aspir-81 MG MG t} 81 MG Montelukast Montelukast No Montelukas Sodium 10 Sodium 10 t Sodium MG MG 10 MG Flonase 50 Flonase 50 No 1{spray QD Flonase 50 MCG/DOSE MCG/DOSE _in_eac MCG/DOSE h_nostr il} PriLOSEC 20 PriLOSEC 20 No PriLOSEC MG MG 20 MG Meclizine Meclizine No Meclizine HCl 25 MG HCl 25 MG HCl 25 MG Furosemide Furosemide No 1{table Furosemide 40 MG 40 MG t} 40 MG Flonase 50 Flonase 50 No 2{spray QD Flonase 50 MCG/ACT MCG/ACT _in_eac MCG/ACT h_nostr il} Potassium Potassium No Potassium Chloride ER Chloride ER Chloride 20 MEQ 20 MEQ ER 20 MEQ busPIRone busPIRone No 1{table BID busPIRone HCl 15 MG HCl 15 MG t} HCl 15 MG Escitalopra Escitalopra No 1{table QD Escitalopr m Oxalate m Oxalate t} am Oxalate 20 MG 20 MG 20 MG buPROPion buPROPion No 1{table QD buPROPion HCl ER (XL) HCl ER (XL) t_in_th HCl ER 150 MG 150 MG e_morni (XL) 150 ng} MG Ranitidine Ranitidine No 1{table QD Ranitidine HCl 150 MG HCl 150 MG t_at_be HCl 150 MG dtime} Metoprolol Metoprolol No BID Metoprolol Tartrate Tartrate Tartrate 100 MG 100 MG 100 MG Diclofenac Diclofenac No 1{table Diclofenac Sodium 50 Sodium 50 t_with_ Sodium 50 MG MG food_or MG _milk} Cyclobenzap Cyclobenzap No 1{table Cyclobenza rine HCl 10 rine HCl 10 t_as_ne justen HCl MG MG eded} 10 MG Methocarbam Methocarbam No 1{table Methocarba ol 500 MG ol 500 MG t} mol 500 MG Atorvastati Atorvastati No QD Atorvastat n Calcium n Calcium in Calcium 40 MG 40 MG 40 MG Cetirizine Cetirizine No 1{table QD Cetirizine HCl 10 MG HCl 10 MG t} HCl 10 MG Aspir-81 81 Aspir-81 81 No 1{table QD Aspir-81 MG MG t} 81 MG Montelukast Montelukast No Montelukas Sodium 10 Sodium 10 t Sodium MG MG 10 MG Flonase 50 Flonase 50 No 1{spray QD Flonase 50 MCG/DOSE MCG/DOSE _in_eac MCG/DOSE h_nostr il} Ranitidine Ranitidine No 1{table QD Ranitidine HCl 150 MG HCl 150 MG t_at_be HCl 150 MG dtime} Meclizine Meclizine No Meclizine HCl 25 MG HCl 25 MG HCl 25 MG Metoprolol Metoprolol No BID Metoprolol Tartrate Tartrate Tartrate 100 MG 100 MG 100 MG Flonase 50 Flonase 50 No 2{spray QD Flonase 50 MCG/ACT MCG/ACT _in_eac MCG/ACT h_nostr il} busPIRone busPIRone No 1{table BID busPIRone HCl 15 MG HCl 15 MG t} HCl 15 MG Furosemide Furosemide No 1{table Furosemide 40 MG 40 MG t} 40 MG Escitalopra Escitalopra No 1{table QD Escitalopr m Oxalate m Oxalate t} am Oxalate 20 MG 20 MG 20 MG buPROPion buPROPion No 1{table QD buPROPion HCl ER (XL) HCl ER (XL) t_in_th HCl ER 150 MG 150 MG e_morni (XL) 150 ng} MG Potassium Potassium No Potassium Chloride ER Chloride ER Chloride 20 MEQ 20 MEQ ER 20 MEQ Atorvastati Atorvastati No QD Atorvastat n Calcium n Calcium in Calcium 40 MG 40 MG 40 MG Diclofenac Diclofenac No 1{table Diclofenac Sodium 50 Sodium 50 t_with_ Sodium 50 MG MG food_or MG _milk} PriLOSEC 20 PriLOSEC 20 No PriLOSEC MG MG 20 MG Methocarbam Methocarbam No 1{table Methocarba ol 500 MG ol 500 MG t} mol 500 MG Cyclobenzap Cyclobenzap No 1{table Cyclobenza rine HCl 10 rine HCl 10 t_as_ne justen HCl MG MG eded} 10 MG Cetirizine Cetirizine No 1{table QD Cetirizine HCl 10 MG HCl 10 MG t} HCl 10 MG Montelukast Montelukast No Montelukas Sodium 10 Sodium 10 t Sodium MG MG 10 MG Methocarbam Methocarbam No 1{table Methocarba ol 500 MG ol 500 MG t} mol 500 MG Meclizine Meclizine No Meclizine HCl 25 MG HCl 25 MG HCl 25 MG Flonase 50 Flonase 50 No 1{spray QD Flonase 50 MCG/DOSE MCG/DOSE _in_eac MCG/DOSE h_nostr il} Aspir-81 81 Aspir-81 81 No 1{table QD Aspir-81 MG MG t} 81 MG Diclofenac Diclofenac No 1{table Diclofenac Sodium 50 Sodium 50 t_with_ Sodium 50 MG MG food_or MG _milk} Potassium Potassium No Potassium Chloride ER Chloride ER Chloride 20 MEQ 20 MEQ ER 20 MEQ PriLOSEC 20 PriLOSEC 20 No PriLOSEC MG MG 20 MG Escitalopra Escitalopra No 1{table QD Escitalopr m Oxalate m Oxalate t} am Oxalate 20 MG 20 MG 20 MG buPROPion buPROPion No 1{table QD buPROPion HCl ER (XL) HCl ER (XL) t_in_th HCl ER 150 MG 150 MG e_morni (XL) 150 ng} MG Metoprolol Metoprolol No BID Metoprolol Tartrate Tartrate Tartrate 100 MG 100 MG 100 MG Atorvastati Atorvastati No QD Atorvastat n Calcium n Calcium in Calcium 40 MG 40 MG 40 MG Furosemide Furosemide No 1{table Furosemide 40 MG 40 MG t} 40 MG Diclofenac Diclofenac No TID Diclofenac Sodium 1 % Sodium 1 % Sodium 1 % Cetirizine Cetirizine No 1{table QD Cetirizine HCl 10 MG HCl 10 MG t} HCl 10 MG Cyclobenzap Cyclobenzap No 1{table Cyclobenza rine HCl 10 rine HCl 10 t_as_ne justen HCl MG MG eded} 10 MG Ranitidine Ranitidine No 1{table QD Ranitidine HCl 150 MG HCl 150 MG t_at_be HCl 150 MG dtime} Flonase 50 Flonase 50 No 2{spray QD Flonase 50 MCG/ACT MCG/ACT _in_eac MCG/ACT h_nostr il} busPIRone busPIRone No 1{table BID busPIRone HCl 15 MG HCl 15 MG t} HCl 15 MG Montelukast Montelukast No Montelukas Sodium 10 Sodium 10 t Sodium MG MG 10 MG Methocarbam Methocarbam No 1{table Methocarba ol 500 MG ol 500 MG t} mol 500 MG Meclizine Meclizine No Meclizine HCl 25 MG HCl 25 MG HCl 25 MG Flonase 50 Flonase 50 No 1{spray QD Flonase 50 MCG/DOSE MCG/DOSE _in_eac MCG/DOSE h_nostr il} Aspir-81 81 Aspir-81 81 No 1{table QD Aspir-81 MG MG t} 81 MG Diclofenac Diclofenac No 1{table Diclofenac Sodium 50 Sodium 50 t_with_ Sodium 50 MG MG food_or MG _milk} Potassium Potassium No Potassium Chloride ER Chloride ER Chloride 20 MEQ 20 MEQ ER 20 MEQ PriLOSEC 20 PriLOSEC 20 No PriLOSEC MG MG 20 MG Escitalopra Escitalopra No 1{table QD Escitalopr m Oxalate m Oxalate t} am Oxalate 20 MG 20 MG 20 MG buPROPion buPROPion No 1{table QD buPROPion HCl ER (XL) HCl ER (XL) t_in_th HCl ER 150 MG 150 MG e_morni (XL) 150 ng} MG Metoprolol Metoprolol No BID Metoprolol Tartrate Tartrate Tartrate 100 MG 100 MG 100 MG Atorvastati Atorvastati No QD Atorvastat n Calcium n Calcium in Calcium 40 MG 40 MG 40 MG Furosemide Furosemide No 1{table Furosemide 40 MG 40 MG t} 40 MG Diclofenac Diclofenac No TID Diclofenac Sodium 1 % Sodium 1 % Sodium 1 % Cetirizine Cetirizine No 1{table QD Cetirizine HCl 10 MG HCl 10 MG t} HCl 10 MG Cyclobenzap Cyclobenzap No 1{table Cyclobenza rine HCl 10 rine HCl 10 t_as_ne justen HCl MG MG eded} 10 MG Ranitidine Ranitidine No 1{table QD Ranitidine HCl 150 MG HCl 150 MG t_at_be HCl 150 MG dtime} Flonase 50 Flonase 50 No 2{spray QD Flonase 50 MCG/ACT MCG/ACT _in_eac MCG/ACT h_nostr il} busPIRone busPIRone No 1{table BID busPIRone HCl 15 MG HCl 15 MG t} HCl 15 MG Montelukast Montelukast No Montelukas Sodium 10 Sodium 10 t Sodium MG MG 10 MG Methocarbam Methocarbam No 1{table Methocarba ol 500 MG ol 500 MG t} mol 500 MG Meclizine Meclizine No Meclizine HCl 25 MG HCl 25 MG HCl 25 MG Flonase 50 Flonase 50 No 1{spray QD Flonase 50 MCG/DOSE MCG/DOSE _in_eac MCG/DOSE h_nostr il} Aspir-81 81 Aspir-81 81 No 1{table QD Aspir-81 MG MG t} 81 MG Diclofenac Diclofenac No 1{table Diclofenac Sodium 50 Sodium 50 t_with_ Sodium 50 MG MG food_or MG _milk} Potassium Potassium No Potassium Chloride ER Chloride ER Chloride 20 MEQ 20 MEQ ER 20 MEQ PriLOSEC 20 PriLOSEC 20 No PriLOSEC MG MG 20 MG Escitalopra Escitalopra No 1{table QD Escitalopr m Oxalate m Oxalate t} am Oxalate 20 MG 20 MG 20 MG buPROPion buPROPion No 1{table QD buPROPion HCl ER (XL) HCl ER (XL) t_in_th HCl ER 150 MG 150 MG e_morni (XL) 150 ng} MG Metoprolol Metoprolol No BID Metoprolol Tartrate Tartrate Tartrate 100 MG 100 MG 100 MG Atorvastati Atorvastati No QD Atorvastat n Calcium n Calcium in Calcium 40 MG 40 MG 40 MG Furosemide Furosemide No 1{table Furosemide 40 MG 40 MG t} 40 MG Diclofenac Diclofenac No TID Diclofenac Sodium 1 % Sodium 1 % Sodium 1 % Cetirizine Cetirizine No 1{table QD Cetirizine HCl 10 MG HCl 10 MG t} HCl 10 MG Cyclobenzap Cyclobenzap No 1{table Cyclobenza rine HCl 10 rine HCl 10 t_as_ne justen HCl MG MG eded} 10 MG Ranitidine Ranitidine No 1{table QD Ranitidine HCl 150 MG HCl 150 MG t_at_be HCl 150 MG dtime} Flonase 50 Flonase 50 No 2{spray QD Flonase 50 MCG/ACT MCG/ACT _in_eac MCG/ACT h_nostr il} busPIRone busPIRone No 1{table BID busPIRone HCl 15 MG HCl 15 MG t} HCl 15 MG Montelukast Montelukast No Montelukas Sodium 10 Sodium 10 t Sodium MG MG 10 MG Methocarbam Methocarbam No 1{table Methocarba ol 500 MG ol 500 MG t} mol 500 MG Meclizine Meclizine No Meclizine HCl 25 MG HCl 25 MG HCl 25 MG Flonase 50 Flonase 50 No 1{spray QD Flonase 50 MCG/DOSE MCG/DOSE _in_eac MCG/DOSE h_nostr il} Aspir-81 81 Aspir-81 81 No 1{table QD Aspir-81 MG MG t} 81 MG Diclofenac Diclofenac No 1{table Diclofenac Sodium 50 Sodium 50 t_with_ Sodium 50 MG MG food_or MG _milk} Potassium Potassium No Potassium Chloride ER Chloride ER Chloride 20 MEQ 20 MEQ ER 20 MEQ PriLOSEC 20 PriLOSEC 20 No PriLOSEC MG MG 20 MG Escitalopra Escitalopra No 1{table QD Escitalopr m Oxalate m Oxalate t} am Oxalate 20 MG 20 MG 20 MG buPROPion buPROPion No 1{table QD buPROPion HCl ER (XL) HCl ER (XL) t_in_th HCl ER 150 MG 150 MG e_morni (XL) 150 ng} MG Metoprolol Metoprolol No BID Metoprolol Tartrate Tartrate Tartrate 100 MG 100 MG 100 MG Atorvastati Atorvastati No QD Atorvastat n Calcium n Calcium in Calcium 40 MG 40 MG 40 MG Furosemide Furosemide No 1{table Furosemide 40 MG 40 MG t} 40 MG Diclofenac Diclofenac No TID Diclofenac Sodium 1 % Sodium 1 % Sodium 1 % Cetirizine Cetirizine No 1{table QD Cetirizine HCl 10 MG HCl 10 MG t} HCl 10 MG Cyclobenzap Cyclobenzap No 1{table Cyclobenza rine HCl 10 rine HCl 10 t_as_ne justen HCl MG MG eded} 10 MG Ranitidine Ranitidine No 1{table QD Ranitidine HCl 150 MG HCl 150 MG t_at_be HCl 150 MG dtime} Flonase 50 Flonase 50 No 2{spray QD Flonase 50 MCG/ACT MCG/ACT _in_eac MCG/ACT h_nostr il} busPIRone busPIRone No 1{table BID busPIRone HCl 15 MG HCl 15 MG t} HCl 15 MG Atorvastati Atorvastati No QD Atorvastat n Calcium n Calcium in Calcium 40 MG 40 MG 40 MG Escitalopra Escitalopra No 1{table QD Escitalopr m Oxalate m Oxalate t} am Oxalate 20 MG 20 MG 20 MG Aspir-81 81 Aspir-81 81 No 1{table QD Aspir-81 MG MG t} 81 MG Diclofenac Diclofenac No TID Diclofenac Sodium 1 % Sodium 1 % Sodium 1 % Montelukast Montelukast No Montelukas Sodium 10 Sodium 10 t Sodium MG MG 10 MG busPIRone busPIRone No 1{table BID busPIRone HCl 15 MG HCl 15 MG t} HCl 15 MG buPROPion buPROPion No 1{table QD buPROPion HCl ER (XL) HCl ER (XL) t_in_th HCl ER 150 MG 150 MG e_morni (XL) 150 ng} MG Cetirizine Cetirizine No 1{table QD Cetirizine HCl 10 MG HCl 10 MG t} HCl 10 MG Methocarbam Methocarbam No 1{table Methocarba ol 500 MG ol 500 MG t} mol 500 MG Metoprolol Metoprolol No BID Metoprolol Tartrate Tartrate Tartrate 100 MG 100 MG 100 MG Potassium Potassium No Potassium Chloride ER Chloride ER Chloride 20 MEQ 20 MEQ ER 20 MEQ Milk Milk No Milk Thistle Thistle Thistle PriLOSEC 20 PriLOSEC 20 No PriLOSEC MG MG 20 MG Atorvastati Atorvastati No QD Atorvastat n Calcium n Calcium in Calcium 40 MG 40 MG 40 MG Escitalopra Escitalopra No 1{table QD Escitalopr m Oxalate m Oxalate t} am Oxalate 20 MG 20 MG 20 MG Aspir-81 81 Aspir-81 81 No 1{table QD Aspir-81 MG MG t} 81 MG Diclofenac Diclofenac No TID Diclofenac Sodium 1 % Sodium 1 % Sodium 1 % Montelukast Montelukast No Montelukas Sodium 10 Sodium 10 t Sodium MG MG 10 MG busPIRone busPIRone No 1{table BID busPIRone HCl 15 MG HCl 15 MG t} HCl 15 MG buPROPion buPROPion No 1{table QD buPROPion HCl ER (XL) HCl ER (XL) t_in_th HCl ER 150 MG 150 MG e_morni (XL) 150 ng} MG Cetirizine Cetirizine No 1{table QD Cetirizine HCl 10 MG HCl 10 MG t} HCl 10 MG Methocarbam Methocarbam No 1{table Methocarba ol 500 MG ol 500 MG t} mol 500 MG Metoprolol Metoprolol No BID Metoprolol Tartrate Tartrate Tartrate 100 MG 100 MG 100 MG Potassium Potassium No Potassium Chloride ER Chloride ER Chloride 20 MEQ 20 MEQ ER 20 MEQ Milk Milk No Milk Thistle Thistle Thistle PriLOSEC 20 PriLOSEC 20 No PriLOSEC MG MG 20 MG Escitalopra Escitalopra No 1{table QD Escitalopr m Oxalate m Oxalate t} am Oxalate 20 MG 20 MG 20 MG Montelukast Montelukast No Montelukas Sodium 10 Sodium 10 t Sodium MG MG 10 MG Methocarbam Methocarbam No 1{table Methocarba ol 500 MG ol 500 MG t} mol 500 MG busPIRone busPIRone No 1{table BID busPIRone HCl 15 MG HCl 15 MG t} HCl 15 MG Milk Milk No Milk Thistle Thistle Thistle Potassium Potassium No Potassium Chloride ER Chloride ER Chloride 20 MEQ 20 MEQ ER 20 MEQ Aspir-81 81 Aspir-81 81 No 1{table QD Aspir-81 MG MG t} 81 MG PriLOSEC 20 PriLOSEC 20 No PriLOSEC MG MG 20 MG Metoprolol Metoprolol No BID Metoprolol Tartrate Tartrate Tartrate 100 MG 100 MG 100 MG buPROPion buPROPion No 1{table QD buPROPion HCl ER (XL) HCl ER (XL) t_in_th HCl ER 150 MG 150 MG e_morni (XL) 150 ng} MG Diclofenac Diclofenac No TID Diclofenac Sodium 1 % Sodium 1 % Sodium 1 % Atorvastati Atorvastati No QD Atorvastat n Calcium n Calcium in Calcium 40 MG 40 MG 40 MG Cetirizine Cetirizine No 1{table QD Cetirizine HCl 10 MG HCl 10 MG t} HCl 10 MG Escitalopra Escitalopra No 1{table QD Escitalopr m Oxalate m Oxalate t} am Oxalate 20 MG 20 MG 20 MG Montelukast Montelukast No Montelukas Sodium 10 Sodium 10 t Sodium MG MG 10 MG Methocarbam Methocarbam No 1{table Methocarba ol 500 MG ol 500 MG t} mol 500 MG busPIRone busPIRone No 1{table BID busPIRone HCl 15 MG HCl 15 MG t} HCl 15 MG Milk Milk No Milk Thistle Thistle Thistle Potassium Potassium No Potassium Chloride ER Chloride ER Chloride 20 MEQ 20 MEQ ER 20 MEQ Aspir-81 81 Aspir-81 81 No 1{table QD Aspir-81 MG MG t} 81 MG PriLOSEC 20 PriLOSEC 20 No PriLOSEC MG MG 20 MG Metoprolol Metoprolol No BID Metoprolol Tartrate Tartrate Tartrate 100 MG 100 MG 100 MG buPROPion buPROPion No 1{table QD buPROPion HCl ER (XL) HCl ER (XL) t_in_th HCl ER 150 MG 150 MG e_morni (XL) 150 ng} MG Diclofenac Diclofenac No TID Diclofenac Sodium 1 % Sodium 1 % Sodium 1 % Atorvastati Atorvastati No QD Atorvastat n Calcium n Calcium in Calcium 40 MG 40 MG 40 MG Cetirizine Cetirizine No 1{table QD Cetirizine HCl 10 MG HCl 10 MG t} HCl 10 MG Cetirizine Cetirizine No 1{table QD Cetirizine HCl 10 MG HCl 10 MG t} HCl 10 MG Atorvastati Atorvastati No QD Atorvastat n Calcium n Calcium in Calcium 40 MG 40 MG 40 MG Metoprolol Metoprolol No BID Metoprolol Tartrate Tartrate Tartrate 100 MG 100 MG 100 MG Aspir-81 81 Aspir-81 81 No 1{table QD Aspir-81 MG MG t} 81 MG Potassium Potassium No Potassium Chloride ER Chloride ER Chloride 20 MEQ 20 MEQ ER 20 MEQ PriLOSEC 20 PriLOSEC 20 No PriLOSEC MG MG 20 MG Diclofenac Diclofenac No TID Diclofenac Sodium 1 % Sodium 1 % Sodium 1 % predniSONE predniSONE No QD predniSONE 10 MG 10 MG 10 MG Escitalopra Escitalopra No 1{table QD Escitalopr m Oxalate m Oxalate t} am Oxalate 20 MG 20 MG 20 MG Milk Milk No Milk Thistle Thistle Thistle Montelukast Montelukast No Montelukas Sodium 10 Sodium 10 t Sodium MG MG 10 MG buPROPion buPROPion No 1{table QD buPROPion HCl ER (XL) HCl ER (XL) t_in_th HCl ER 150 MG 150 MG e_morni (XL) 150 ng} MG busPIRone busPIRone No 1{table BID busPIRone HCl 15 MG HCl 15 MG t} HCl 15 MG Methocarbam Methocarbam No 1{table Methocarba ol 500 MG ol 500 MG t} mol 500 MG predniSONE predniSONE No QD predniSONE 10 MG 10 MG 10 MG Escitalopra Escitalopra No 1{table QD Escitalopr m Oxalate m Oxalate t} am Oxalate 20 MG 20 MG 20 MG Aspir-81 81 Aspir-81 81 No 1{table QD Aspir-81 MG MG t} 81 MG Metoprolol Metoprolol No BID Metoprolol Tartrate Tartrate Tartrate 100 MG 100 MG 100 MG PriLOSEC 20 PriLOSEC 20 No PriLOSEC MG MG 20 MG Milk Milk No Milk Thistle Thistle Thistle Diclofenac Diclofenac No TID Diclofenac Sodium 1 % Sodium 1 % Sodium 1 % busPIRone busPIRone No 1{table BID busPIRone HCl 15 MG HCl 15 MG t} HCl 15 MG Cetirizine Cetirizine No 1{table QD Cetirizine HCl 10 MG HCl 10 MG t} HCl 10 MG Atorvastati Atorvastati No QD Atorvastat n Calcium n Calcium in Calcium 40 MG 40 MG 40 MG Methocarbam Methocarbam No 1{table Methocarba ol 500 MG ol 500 MG t} mol 500 MG buPROPion buPROPion No 1{table QD buPROPion HCl ER (XL) HCl ER (XL) t_in_th HCl ER 150 MG 150 MG e_morni (XL) 150 ng} MG Montelukast Montelukast No Montelukas Sodium 10 Sodium 10 t Sodium MG MG 10 MG Potassium Potassium No Potassium Chloride ER Chloride ER Chloride 20 MEQ 20 MEQ ER 20 MEQ predniSONE predniSONE No QD predniSONE 10 MG 10 MG 10 MG Escitalopra Escitalopra No 1{table QD Escitalopr m Oxalate m Oxalate t} am Oxalate 20 MG 20 MG 20 MG Aspir-81 81 Aspir-81 81 No 1{table QD Aspir-81 MG MG t} 81 MG Metoprolol Metoprolol No BID Metoprolol Tartrate Tartrate Tartrate 100 MG 100 MG 100 MG PriLOSEC 20 PriLOSEC 20 No PriLOSEC MG MG 20 MG Milk Milk No Milk Thistle Thistle Thistle Diclofenac Diclofenac No TID Diclofenac Sodium 1 % Sodium 1 % Sodium 1 % busPIRone busPIRone No 1{table BID busPIRone HCl 15 MG HCl 15 MG t} HCl 15 MG Cetirizine Cetirizine No 1{table QD Cetirizine HCl 10 MG HCl 10 MG t} HCl 10 MG Atorvastati Atorvastati No QD Atorvastat n Calcium n Calcium in Calcium 40 MG 40 MG 40 MG Methocarbam Methocarbam No 1{table Methocarba ol 500 MG ol 500 MG t} mol 500 MG buPROPion buPROPion No 1{table QD buPROPion HCl ER (XL) HCl ER (XL) t_in_th HCl ER 150 MG 150 MG e_morni (XL) 150 ng} MG Montelukast Montelukast No Montelukas Sodium 10 Sodium 10 t Sodium MG MG 10 MG Potassium Potassium No Potassium Chloride ER Chloride ER Chloride 20 MEQ 20 MEQ ER 20 MEQ busPIRone busPIRone No 1{table BID busPIRone HCl 15 MG HCl 15 MG t} HCl 15 MG buPROPion buPROPion No 1{table QD buPROPion HCl ER (XL) HCl ER (XL) t_in_th HCl ER 150 MG 150 MG e_morni (XL) 150 ng} MG Procto-Med Procto-Med No 1{appli Procto-Med HC 2.5 % HC 2.5 % cation_ HC 2.5 % to_affe cted_ar ea} Atorvastati Atorvastati No QD Atorvastat n Calcium n Calcium in Calcium 40 MG 40 MG 40 MG Potassium Potassium No Potassium Chloride ER Chloride ER Chloride 20 MEQ 20 MEQ ER 20 MEQ Metoprolol Metoprolol No BID Metoprolol Tartrate Tartrate Tartrate 100 MG 100 MG 100 MG Cetirizine Cetirizine No 1{table QD Cetirizine HCl 10 MG HCl 10 MG t} HCl 10 MG Diclofenac Diclofenac No TID Diclofenac Sodium 1 % Sodium 1 % Sodium 1 % Aspir-81 81 Aspir-81 81 No 1{table QD Aspir-81 MG MG t} 81 MG Montelukast Montelukast No Montelukas Sodium 10 Sodium 10 t Sodium MG MG 10 MG PriLOSEC 20 PriLOSEC 20 No PriLOSEC MG MG 20 MG Milk Milk No Milk Thistle Thistle Thistle predniSONE predniSONE No QD predniSONE 10 MG 10 MG 10 MG Escitalopra Escitalopra No 1{table QD Escitalopr m Oxalate m Oxalate t} am Oxalate 20 MG 20 MG 20 MG Methocarbam Methocarbam No 1{table Methocarba ol 500 MG ol 500 MG t} mol 500 MG Atorvastati Atorvastati No QD Atorvastat n Calcium n Calcium in Calcium 40 MG 40 MG 40 MG PriLOSEC 20 PriLOSEC 20 No PriLOSEC MG MG 20 MG predniSONE predniSONE No QD predniSONE 10 MG 10 MG 10 MG Montelukast Montelukast No Montelukas Sodium 10 Sodium 10 t Sodium MG MG 10 MG Diclofenac Diclofenac No TID Diclofenac Sodium 1 % Sodium 1 % Sodium 1 % Milk Milk No Milk Thistle Thistle Thistle Procto-Med Procto-Med No 1{appli Procto-Med HC 2.5 % HC 2.5 % cation_ HC 2.5 % to_affe cted_ar ea} Flonase 50 Flonase 50 No 1{spray QD Flonase 50 MCG/DOSE MCG/DOSE _in_eac MCG/DOSE h_nostr il} Escitalopra Escitalopra No 1{table QD Escitalopr m Oxalate m Oxalate t} am Oxalate 20 MG 20 MG 20 MG Aspir-81 81 Aspir-81 81 No 1{table QD Aspir-81 MG MG t} 81 MG Metoprolol Metoprolol No BID Metoprolol Tartrate Tartrate Tartrate 100 MG 100 MG 100 MG busPIRone busPIRone No 1{table BID busPIRone HCl 15 MG HCl 15 MG t} HCl 15 MG Cetirizine Cetirizine No 1{table QD Cetirizine HCl 10 MG HCl 10 MG t} HCl 10 MG Potassium Potassium No Potassium Chloride ER Chloride ER Chloride 20 MEQ 20 MEQ ER 20 MEQ buPROPion buPROPion No 1{table QD buPROPion HCl ER (XL) HCl ER (XL) t_in_th HCl ER 150 MG 150 MG e_morni (XL) 150 ng} MG Abilify 2 Abilify 2 No 1{table QD Abilify 2 MG MG t} MG Montelukast Montelukast No Montelukas Sodium 10 Sodium 10 t Sodium MG MG 10 MG Potassium Potassium No Potassium Chloride ER Chloride ER Chloride 20 MEQ 20 MEQ ER 20 MEQ Atorvastati Atorvastati No QD Atorvastat n Calcium n Calcium in Calcium 40 MG 40 MG 40 MG Aspir-81 81 Aspir-81 81 No 1{table QD Aspir-81 MG MG t} 81 MG Metoprolol Metoprolol No BID Metoprolol Tartrate 50 Tartrate 50 Tartrate MG MG 50 MG Milk Milk No Milk Thistle Thistle Thistle Escitalopra Escitalopra No 1{table QD Escitalopr m Oxalate m Oxalate t} am Oxalate 20 MG 20 MG 20 MG Flonase 50 Flonase 50 No 1{spray QD Flonase 50 MCG/DOSE MCG/DOSE _in_eac MCG/DOSE h_nostr il} Abilify 2 Abilify 2 No 1{table QD Abilify 2 MG MG t} MG Cetirizine Cetirizine No 1{table QD Cetirizine HCl 10 MG HCl 10 MG t} HCl 10 MG busPIRone busPIRone No 1{table BID busPIRone HCl 15 MG HCl 15 MG t} HCl 15 MG Procto-Med Procto-Med No 1{appli Procto-Med HC 2.5 % HC 2.5 % cation_ HC 2.5 % to_affe cted_ar ea} buPROPion buPROPion No 1{table QD buPROPion HCl ER (XL) HCl ER (XL) t_in_th HCl ER 300 MG 300 MG e_morni (XL) 300 ng} MG Diclofenac Diclofenac No TID Diclofenac Sodium 1 % Sodium 1 % Sodium 1 % predniSONE predniSONE No QD predniSONE 10 MG 10 MG 10 MG PriLOSEC 20 PriLOSEC 20 No PriLOSEC MG MG 20 MG Potassium Potassium No Potassium Chloride ER Chloride ER Chloride 20 MEQ 20 MEQ ER 20 MEQ Milk Milk No Milk Thistle Thistle Thistle Atorvastati Atorvastati No QD Atorvastat n Calcium n Calcium in Calcium 40 MG 40 MG 40 MG Flonase 50 Flonase 50 No 1{spray QD Flonase 50 MCG/DOSE MCG/DOSE _in_eac MCG/DOSE h_nostr il} Escitalopra Escitalopra No 1{table QD Escitalopr m Oxalate m Oxalate t} am Oxalate 20 MG 20 MG 20 MG Diclofenac Diclofenac No TID Diclofenac Sodium 1 % Sodium 1 % Sodium 1 % Abilify 2 Abilify 2 No 1{table QD Abilify 2 MG MG t} MG Metoprolol Metoprolol No 1{table Metoprolol Tartrate 50 Tartrate 50 t_with_ Tartrate MG MG food} 50 MG Aspir-81 81 Aspir-81 81 No 1{table QD Aspir-81 MG MG t} 81 MG predniSONE predniSONE No QD predniSONE 10 MG 10 MG 10 MG Metoprolol Metoprolol No 1{table Metoprolol Tartrate Tartrate t_with_ Tartrate 100 MG 100 MG food} 100 MG Cetirizine Cetirizine No 1{table QD Cetirizine HCl 10 MG HCl 10 MG t} HCl 10 MG Procto-Med Procto-Med No 1{appli Procto-Med HC 2.5 % HC 2.5 % cation_ HC 2.5 % to_affe cted_ar ea} busPIRone busPIRone No 1{table BID busPIRone HCl 15 MG HCl 15 MG t} HCl 15 MG Montelukast Montelukast No Montelukas Sodium 10 Sodium 10 t Sodium MG MG 10 MG buPROPion buPROPion No 1{table QD buPROPion HCl ER (XL) HCl ER (XL) t_in_th HCl ER 300 MG 300 MG e_morni (XL) 300 ng} MG PriLOSEC 20 PriLOSEC 20 No PriLOSEC MG MG 20 MG Cyclobenzap Cyclobenzap 2021- No 1{table Cyclobenza rine HCl 10 rine HCl 10 08-10 t_as_ne justen HCl MG MG 00:00 eded} 10 MG :00 Cyclobenzap Cyclobenzap 2021- No 1{table Cyclobenza rine HCl 10 rine HCl 10 08-10 t_as_ne justen HCl MG MG 00:00 eded} 10 MG :00 Cyclobenzap Cyclobenzap 2021- No 1{table Cyclobenza rine HCl 10 rine HCl 10 11-11 t_as_ne justen HCl MG MG 00:00 eded} 10 MG :00 Vital Signs Vital Name Observation Time Observation Value Comments Source height 2022-03-01 13:00:00 59.5 [in_i] [facility] weight 2022-03-01 13:00:00 199.8 [lb_av] [facility] temperature 2022-03-01 13:00:00 97.8 [degF] [facility] bmi 2022-03-01 13:00:00 39.67 kg/m2 [facility] oximetry 2022-03-01 13:00:00 97 % [facility] respiratory rate 2022-03-01 13:00:00 16 /min Comm on [facility] blood pressure 2022-03-01 13:00:00 124 mm[Hg] Common [facility] - systolic [facility] blood pressure 2022-03-01 13:00:00 57 mm[Hg] Common [facility] diastolic [facility] height 2022-01-19 11:00:00 59.5 [in_i] [facility] weight 2022-01-19 11:00:00 200.8 [lb_av] [facility] temperature 2022-01-19 11:00:00 97.7 [degF] [facility] bmi 2022-01-19 11:00:00 39.87 kg/m2 [facility] oximetry 2022-01-19 11:00:00 97 % [facility] respiratory rate 2022-01-19 11:00:00 15 /min Comm on [facility] blood pressure 2022-01-19 11:00:00 123 mm[Hg] Common [facility] - systolic [facility] blood pressure 2022-01-19 11:00:00 76 mm[Hg] Common [facility] - diastolic [facility] height 2022-01-05 16:00:00 59.5 [in_i] Common [facility] weight 2022-01-05 16:00:00 200 [lb_av] Common [facility] bmi 2022-01-05 16:00:00 39.71 kg/m2 Common [facility] height 2021-11-26 13:40:00 59.50 [in_i] Common [facility] weight 2021-11-26 13:40:00 204 [lb_av] [facility] temperature 2021-11-26 13:40:00 97.3 [degF] [facility] bmi 2021-11-26 13:40:00 40.51 kg/m2 [facility] oximetry 2021-11-26 13:40:00 96 % [facility] respiratory rate 2021-11-26 13:40:00 16 /min Comm on [facility] blood pressure 2021-11-26 13:40:00 122 mm[Hg] Common [facility] - systolic [facility] blood pressure 2021-11-26 13:40:00 58 mm[Hg] Common [facility] - diastolic [facility] height 2021-10-22 11:40:00 59.50 [in_i] Common [facility] weight 2021-10-22 11:40:00 212.6 [lb_av] [facility] temperature 2021-10-22 11:40:00 97.6 [degF] [facility] bmi 2021-10-22 11:40:00 42.22 kg/m2 [facility] oximetry 2021-10-22 11:40:00 96 % [facility] respiratory rate 2021-10-22 11:40:00 16 /min Comm on [facility] blood pressure 2021-10-22 11:40:00 130 mm[Hg[facility] blood pressure 2021-10-22 11:40:00 57 mm[Hg] [facility] height 2021-08-25 13:00:00 63.00 [in_i] [facility] weight 2021-08-25 13:00:00 214.4 [lb_av] Common [facility] temperature 2021-08-25 13:00:00 97.8 [degF] Common [facility] bmi 2021-08-25 13:00:00 37.98 kg/m2 [facility] oximetry 2021-08-25 13:00:00 96 % Common [facility] respiratory rate 2021-08-25 13:00:00 16 /min Comm on [facility] blood pressure 2021-08-25 13:00:00 133 mm[Hg] [facility] blood pressure 2021-08-25 13:00:00 69 mm[Hg] [facility] height 2021-07-22 15:40:00 63.00 [in_i] [facility] weight 2021-07-22 15:40:00 213.7 [lb_av] Common [facility] temperature 2021-07-22 15:40:00 97.3 [degF] Common [facility] bmi 2021-07-22 15:40:00 37.85 kg/m2 Common [facility] oximetry 2021-07-22 15:40:00 97 % [facility] 2021-07-22 15:40:00 16 /min Comm on [facility] blood pressure 2021-07-22 15:40:00 136 mm[Hg] [facility] blood pressure 2021-07-22 15:40:00 81 mm[Hg] [facility] height 2021-07-14 15:00:00 63.00 [in_i] [facility] weight 2021-07-14 15:00:00 212.6 [lb_av] [facility] temperature 2021-07-14 15:00:00 97.4 [degF] Common [facility] - [facility] bmi 2021-07-14 15:00:00 37.66 kg/m2 Common [facility] oximetry 2021-07-14 15:00:00 97 % [facility] respiratory rate 2021-07-14 15:00:00 16 /min Comm on [facility] blood pressure 2021-07-14 15:00:00 134 mm[Hg] Common [facility] - systolic [facility] blood pressure 2021-07-14 15:00:00 64 mm[Hg] [facility] height 2021-04-14 14:00:00 63.00 [in_i] Common [facility] weight 2021-04-14 14:00:00 208.2 [lb_av] [facility] temperature 2021-04-14 14:00:00 98.0 [degF] Common [facility] bmi 2021-04-14 14:00:00 36.88 kg/m2 Common S [facility] oximetry 2021-04-14 14:00:00 98 % Common [facility] respiratory rate 2021-04-14 14:00:00 16 /min Comm on [facility] blood pressure 2021-04-14 14:00:00 130 mm[Hg] [facility] blood pressure 2021-04-14 14:00:00 80 mm[Hg] Common [facility] - diastolic [facility] height 2021-03-03 13:20:00 63.00 [in_i] Common [facility] weight 2021-03-03 13:20:00 204 [lb_av] Common [facility] temperature 2021-03-03 13:20:00 97.4 [degF] Common [facility] bmi 2021-03-03 13:20:00 36.13 kg/m2 [facility] oximetry 2021-03-03 13:20:00 96 % [facility] respiratory rate 2021-03-03 13:20:00 19 /min Comm on [facility] blood pressure 2021-03-03 13:20:00 119 mm[Hg] Common [facility] - systolic [facility] blood pressure 2021-03-03 13:20:00 58 mm[Hg] [facility] diastolic [facility] height 2021-01-22 14:20:00 63.00 [in_i] [facility] weight 2021-01-22 14:20:00 200.8 [lb_av] Common [facility] temperature 2021-01-22 14:20:00 96.7 [degF] [facility] bmi 2021-01-22 14:20:00 35.57 kg/m2 [facility] oximetry 2021-01-22 14:20:00 97 % [facility] respiratory rate 2021-01-22 14:20:00 18 /min Comm on [facility] blood pressure 2021-01-22 14:20:00 122 mm[Hg] Common [facility] systolic [facility] blood pressure 2021-01-22 14:20:00 80 mm[Hg] Common [facility] diastolic [facility] Procedures This patient has no known procedures. Encounters Start End Encounter Admission Attending Care Care Encounter Source Date/Time Date/Time Type Type Clinicians Facility Department ID 2022-07-[address] [facility] [id number] Common 14:18:00 Avnee [id number] [facility] 2022-07-15 Outpatient Cagle, STLMLC STLMLC [id number] Common 08:33:00 Avnee [id number] [facility] 2022-07-08 Outpatient LOVING, Na STLMLC STLMLC [id number] 2 Common 09:54:00 [id number] [facility] 2022-01-19 Outpatient Loving, Na STLMLC STLMLC [id number] 2 Common 11:05:01 [facility] 2022-01-05 Outpatient Loving, Na STLMLC STLMLC [id number] 2 Common 10:54:00 [facility] 2021-10-20 Outpatient Loving, Na STLMLC STLMLC [id number] 2 Common 13:54:00 [facility] 2021-08-21 Outpatient Loving, Na STLMLC STLMLC [id number] 2 Common 09:47:02 [facility] 2021-07-24 Outpatient Loving, Na STLMLC STLMLC [id number] 2 Common 09:37:00 [facility] 2021-07-13 Outpatient Loving, Na STLMLC STLMLC [id number] 2 Common 11:05:00 [facility] 2021-04-29 Outpatient Loving, Na STLMLC STLMLC [id number] 2 Common 14:33:53 [facility] 2021-04-29 Outpatient Loving, Na STLMLC STLMLC [id number] 2 Common 14:32:22 [facility] 2021-04-29 Outpatient Loving, Na STLMLC STLMLC [id number] 2 Common 14:18:50 [id number] [facility] 2021-04-29 Outpatient Loving, Na STLMLC STLMLC [id number] 2 Common 13:46:51 [id number] [facility] 2021-04-29 Outpatient Loving, Na STLMLC STLMLC [id number] 2 Common 13:46:37 [id number] [facility] 2021-04-29 Outpatient Loving, Na STLMLC STLMLC [id number] 2 Common 12:51:52 [id number] [facility] 2021-04-29 Outpatient Loving, Na STLMLC STLMLC [id number] 2 Common 12:47:57 [id number] [facility] 2021-04-29 Outpatient Loving, Na STLMLC STLMLC [id number] 2 Common 12:44:21 [id number] [facility] 2021-04-29 Outpatient Loving, Na STLMLC STLMLC [id number] 2 Common 12:40:13 [id number] [facility] 2021-04-29 Outpatient Loving, Na STLMLC STLMLC [id number] 2 Common 12:36:37 [id number] [facility] 2021-04-29 Outpatient Loving, Na STLMLC STLMLC [id number] 2 Common 12:35:02 [id number] [facility] 2021-04-29 Outpatient Loving, Na STLMLC STLMLC [id number] 2 Common 12:32:24 [id number] [facility] 2021-04-29 Outpatient Loving, Na STLMLC STLMLC [id number] 2 Common 12:27:06 [id number] [facility] 2021-04-29 Outpatient Loving, Na STLMLC STLMLC [id number] 2 Common 12:24:30 [id number] [facility] 2021-04-29 Outpatient Loving, Na STLMLC STLMLC [id number] 2 Common 11:30:15 [id number] [facility] 2021-04-29 Outpatient Loving, Na STLMLC STLMLC [id number] 2 Common 11:29:32 [id number] [facility] 2021-04-29 Outpatient Loving, Na STLMLC STLMLC [id number] 2 Common 11:18:32 [id number] [facility] 2021-04-29 Outpatient Loving, Na STLMLC STLMLC [id number] 2 Common 11:18:23 [id number] [facility] 2022-03-01 2022-03-01 OFFICE STLMLC STLMLC [id number] Co mmon 00:00:00 00:00:00 VISIT EST Spir it PT LEVEL 3 [facility] 2022-01-19 2022-01-19 OFFICE STLMLC STLMLC [id number] Co mmon 00:00:00 00:00:00 VISIT EST Spir it PT LEVEL 3 [facility] 2022-01-18 2022-01-18 (TEL) STLMLC STLMLC [id number] Co mmon 00:00:00 00:00:00 [facility] 2022-01-05 2022-01-05 (TEL) STLMLC STLMLC [id number] Co mmon 00:00:00 00:00:00 [facility] 2022-01-05 2022-01-05 OFFICE STLMLC STLMLC [id number] Co mmon 00:00:00 00:00:00 VISIT EST Spir it PT LEVEL 3 [facility] 2021-12-17 2021-12-17 (TEL) STLMLC STLMLC [id number] Co mmon 00:00:00 00:00:00 [facility] 2021-12-15 2021-12-15 (TEL) STLMLC STLMLC [id number] Co mmon 00:00:00 00:00:00 [facility] 2021-11-26 2021-11-26 (TEL) STLMLC STLMLC [id number] Co mmon 00:00:00 00:00:00 [facility] 2021-11-26 2021-11-26 OFFICE STLMLC STLMLC [id number] Co mmon 00:00:00 00:00:00 VISIT [facility]ir [facility] PT LEVEL 3 [facility] 2021-11-18 2021-11-18 (TEL) STLMLC STLMLC [id number] Co mmon 00:00:00 00:00:00 [facility] 2021-10-29 2021-10-29 (TEL) STLMLC STLMLC [id number] Co mmon 00:00:00 00:00:00 [facility] 2021-10-22 2021-10-22 OFFICE STLMLC STLMLC [id number] Co mmon 00:00:00 00:00:00 VISIT [facility] PT [facility] 4 [facility] 2021-10-13 2021-10-13 (TEL) STLMLC STLMLC [id number] Co mmon 00:00:00 00:00:00 [facility] 2021-10-06 2021-10-06 (TEL) STLMLC STLMLC [id number] Co mmon 00:00:00 00:00:00 [facility] 2021-09-14 2021-09-14 (TEL) STLMLC STLMLC [id number] Co mmon 00:00:00 00:00:00 [facility] 2021-08-26 2021-08-26 (TEL) STLMLC STLMLC [id number] Co mmon 00:00:00 00:00:00 [facility] 2021-08-25 2021-08-25 OFFICE STLMLC STLMLC [id number] Co mmon 00:00:00 00:00:00 VISIT [facility] PT LEVEL 3 [facility] 2021-07-22 2021-07-22 (TEL) STLMLC STLMLC [id number] Co mmon 00:00:00 00:00:00 [facility] 2021-07-22 2021-07-22 OFFICE STLMLC STLMLC [id number] Co mmon 00:00:00 00:00:00 VISIT [facility] Sp[facility] PT LEVEL 3 - [facility] 2021-07-14 2021-07-14 OFFICE STLMLC STLMLC [id number] Co mmon 00:00:00 00:00:00 VISIT [facility] PT [address] 2021-06-03 2021-06-03 (TEL) STLMLC STLMLC [id number] Co mmon 00:00:00 00:00:00 [facility] 2021-04-14 2021-04-14 OFFICE STLMLC STLMLC [id number] Co mmon 00:00:00 00:00:00 VISIT [facility] PT LEVEL 3 - [facility] 2021-03-20 2021-03-20 (TEL) STLMLC STLMLC [id number] Co mmon 00:00:00 00:00:00 [facility] 2021-03-03 2021-03-03 (TEL) STLMLC STLMLC [id number] Co mmon 00:00:00 00:00:00 [facility] 2021-03-03 2021-03-03 OFFICE STLMLC STLMLC [id number] Co mmon 00:00:00 00:00:00 VISIT [facility] PT [facility] 4 [facility] 2021-01-27 2021-01-27 (TEL) STLMLC STLMLC [id number] Co mmon 00:00:00 00:00:00 [facility] 2021-01-22 2021-01-22 OFFICE STLMLC STLMLC [id number] Co mmon 00:00:00 00:00:00 VISIT EST Spir it PT LEVEL 3 - [facility] 2021-01-14 2021-01-14 (TEL) STLMLC STLMLC [id number] Co mmon 00:00:00 00:00:00 [facility] 2021-01-06 2021-01-06 (TEL) STLMLC STLMLC [id number] Co mmon 00:00:00 00:00:00 [facility] 2020-12-10 2020-12-10 Outpatient STLMLC STLMLC [id number] Common 00:00:00 00:00:00 [facility] 2020-12-10 2020-12-10 OFFICE STLMLC STLMLC [id number] Co mmon 00:00:00 00:00:00 VISIT [facility] PT [facility] 4 [facility] 2020-11-27 2020-11-27 Outpatient STLMLC STLMLC [id number] Common 00:00:00 00:00:00 [facility] 2020-11-06 2020-11-06 Outpatient STLMLC STLMLC [id number] Common 00:00:00 00:00:00 [facility] 2020-07-21 2020-07-21 Outpatient STLMLC STLMLC [id number] Common 00:00:00 00:00:00 [facility] 2020-07-16 2020-07-16 Outpatient STLMLC STLMLC [id number] Common 00:00:00 00:00:00 [facility] 2020-07-15 2020-07-15 Outpatient STLMLC STLMLC [id number] Common 00:00:00 00:00:00 [facility] 2020-07-15 2020-07-15 Outpatient STLMLC STLMLC [id number] Common 00:00:00 00:00:00 [facility] 2020-07-10 2020-07-10 Outpatient STLMLC STLMLC [id number] Common 00:00:00 00:00:00 [facility] 2020-07-08 2020-07-08 Outpatient STLMLC STLMLC [id number] Common 00:00:00 00:00:00 [facility] 2020-06-27 2020-06-27 Outpatient STLMLC STLMLC [id number] Common 00:00:00 00:00:00 [facility] 2020-06-26 2020-06-26 Outpatient STLMLC STLMLC [id number] Common 00:00:00 00:00:00 [facility] 2020-06-24 2020-06-24 Outpatient STLMLC STLMLC [id number] Common 00:00:00 00:00:00 [facility] 2020-06-10 2020-06-10 Outpatient STLMLC STLMLC [id number] Common 00:00:00 00:00:00 [facility] 2020-06-04 2020-06-04 Outpatient STLMLC STLMLC [id number] Common 00:00:00 00:00:00 [facility] 2020-05-27 2020-05-27 Outpatient STLMLC STLMLC [id number] Common 00:00:00 00:00:00 [facility] 2020-05-08 2020-05-08 Outpatient STLMLC STLMLC [id number] Common 00:00:00 00:00:00 [facility] 2020-05-06 2020-05-06 Outpatient STLMLC STLMLC [id number] Common 00:00:00 00:00:00 [facility] 2020-04-24 2020-04-24 Outpatient STLMLC STLMLC [id number] Common 00:00:00 00:00:00 [facility] 2020-03-12 2020-03-12 Outpatient STLMLC STLMLC [id number] Common 00:00:00 00:00:00 [facility] 2020-02-25 2020-02-25 Outpatient STLMLC STLMLC [id number] Common 00:00:00 00:00:00 [facility] 2019-10-09 2019-10-09 [id number] Common 15:40:00 15:40:[place] [address] [facility] 2019-09-06 2019-09-06 [facility] [id number] Common 12:33:00 12:33:00 [place] [address] [facility] 2019-08-31 2019-08-31 [facility] [id number] Common 11:40:00 11:40:00 [place] [address] [facility] 2019-07-20 2019-07-20 [facility] [id number] Common 13:20:00 13:20:00 [place] [address] [facility] 2019-02-23 2019-02-23 [facility] [id number] Common 08:20:00 08:20:00 [place] [address] [facility] 2018-11-23 2018-11-23 [facility] [id number] Common 13:20:00 13:20:00 [place] [address] [facility] 2018-09-13 2018-09-13 [facility] [id number] Common 12:30:00 12:30:00 [place] [address] [facility] 2018-09-06 2018-09-06 [facility] [id number] Common 10:20:00 10:20:00 [place] [address] [facility] 2018-06-28 2018-06-28 [facility] [id number] Common 15:00:00 15:00:00 [place] [address] [facility] 2018-05-02 2018-05-02 [facility] [id number] Common 10:57:00 10:57:00 [place] [address] [facility] 2018-03-30 2018-03-30 [facility] [id number] Common 15:00:00 15:00:00 [place] [address] [facility] 2017-12-06 2017-12-06 [facility] [id number] Common 11:30:00 11:30:00 [place] [address] [facility] 2012-09-16 2012-09-16 AUDIT BEBA YODER [id number] emoria 02:46:58 07:46:38 jose Phipps 2012-08-01 2012-08-01 AUDIT BEBA YODER [id number] emoria 10:18:22 15:18:22 jose Phipps Results Test Description Test Time Test Comments Results Result Comments Source Lipid Panel w/ Chol/HDL Ratio 2021-10-22 00:00:00 Test Item Value Reference Range Interpretation Comme nts Cholesterol, Total (test code 106 mg/dL See_Comment [Automated message] The system = 2093-3) which generated this result transmitted ref erence range: 100-199 mg/dL. The reference range was not u sed to interpret this result as normal/abnormal. Triglycerides (test code = 104 mg/dL See_Comment [Automated message] The system 0131-8) which generated this result transmitted ref erence range: 0-149 mg/dL. Th e reference range was not used to interpret this result as geno l/abnormal. HDL Cholesterol (test code = 50 mg/dL See_Comment [Automated message] The system 5-9) which generated this result transmitted ref erence range: >39 mg/dL. The refe rence range was not used to int erpret this result as geno l/abnormal. T. Chol/HDL Ratio (test code 2.1 ratio See_Comment [Automated message] The system = 9830-1) which generated this result transmitted ref erence range: 0.0-4.4 ratio. The reference range was not u sed to interpret this result as normal/abnormal. Comp. Metabolic Panel (14) ([facility])2021-10-22 00:00:00 Test Item Value Reference Range Interpretation Comments Glucose (test code = 97 mg/dL See_Comment [Autom ated message] 2425-7) The system [employer] generated this result transmitted ref erence range: 65-99 mg /dL. The reference r lisandro was not used to interpret this result as normal/abnor mal. BUN (test code = 21 mg/dL See_Comment [Automated message] 3714-0) The system [employer] generated this result transmitted ref erence range: 8-27 mg/ dL. The reference r lisandro was not used to interpret this result as normal/abnor mal. Creatinine (test code 0.73 mg/dL See_Comment [Auto mated message] = 2160-0) The system [employer] generated this result transmitted ref erence range: 0.57-1.0 0 mg/dL. The refe rence range was not u sed to interpret this result as normal/abnor mal. BUN/Creatinine Ratio 29 12-28 H (test code = 3097-3) Sodium (test code = 143 mmol/L See_Comment [Automa yu message] 8928-2) The system [employer] generated this result transmitted ref erence range: 134-144 mmol/L. The ref erence range was not u sed to interpret this result as normal/abnor mal. Potassium (test code = 4.0 mmol/L See_Comment [Aut omated message] 4345-3) The system [employer] generated this result transmitted ref erence range: 3.5-5.2 mmol/L. The ref erence range was not u sed to interpret this result as normal/abnor mal. Chloride (test code = 110 mmol/L See_Comment H [Auto mated message] ) The system [facility] generated this result transmitted ref erence range: 96-106 m mol/L. The reference r lisandro was not used to interpret this result as normal/abnor mal. Carbon Dioxide, Total 24 mmol/L See_Comment [Auto mated message] (test code = 2027-) The [facility] tem which generated this result transmitted ref erence range: 20-29 mm ol/L. The reference r lisandro was not used to interpret this result as normal/abnor mal. Calcium (test code = 9.0 mg/dL See_Comment [Autom ated message] 67214-4) The system [facility] generated this result transmitted ref erence range: 8.7-10.3 mg/dL. The refe rence range was not u sed to interpret this result as normal/abnor mal. Protein, Total (test 6.5 g/dL See_Comment [Autom ated message] code = 2885-2) The system [facility] generated this result transmitted ref erence range: 6.0-8.5 g/dL. The reference r lisandro was not used to interpret this result as normal/abnor mal. Albumin (test code = 3.9 g/dL See_Comment [Autom ated message] 1751-7) The system [facility] generated this result transmitted ref erence range: 3.8-4.8 g/dL. The reference r lisandro was not used to interpret this result as normal/abnor mal. Globulin, Total (test 2.6 g/dL See_Comment [Auto mated message] code = 32221-7) The system [facility] generated this result transmitted ref erence range: 1.5-4.5 g/dL. The reference r lisandro was not used to interpret this result as normal/abnor mal. A/G Ratio (test code = 1.5 1.2-2.2 1759-0) Bilirubin, Total (test 0.6 mg/dL See_Comment [Aut omated message] code = 1974-2) The system wh ich generated this result transmitted ref erence range: 0.0-1.2 mg/dL. The reference r lisandro was not used to interpret this result as normal/abnor mal. Alkaline Phosphatase 116 IU/L See_Comment [Autom ated message] (test code = 6768-6) The sys tem which generated this result transmitted ref erence range: 44-121 I U/L. The reference r lisandro was not used to interpret this result as normal/abnor mal. AST (SGOT) (test code 37 IU/L See_Comment [Auto mated message] = 1920-8) The system ic h generated this result transmitted ref erence range: 0-40 IU/ L. The reference range was not used to int erpret this result as normal/abnormal . ALT (SGPT) (test code 33 IU/L See_Comment H [Auto mated message] = 1742-6) The system ic h generated this result transmitted ref erence range: 0-32 IU/ L. The reference range was not used to int erpret this result as normal/abnormal . CBC With Differential/[id number] 00:00:00 Test Item Value Reference Range Interpretation Comments WBC (test code = 6.8 x10E3/uL See_Comment [Automated 0490-2) message] The sy stem which generated this result transmitted reference range : 3.4-10.8 x10E3/ uL. The reference r lisandro was not used to interpret this result as normal/abnormal . RBC (test code = 4.07 x10E6/uL See_Comment [Automate d 489-8) message] The sy stem which generated this result transmitted reference range : 3.77-5.28 x10E6 /uL. The reference r lisandro was not used to interpret this result as normal/abnormal . Hemoglobin (test code 12.5 g/dL See_Comment [Auto mated = 968-7) message] The sy stem which generated this result transmitted reference range : 11.1-15.9 g/dL. The reference range was not used to interpret this result as normal/abnormal . Hematocrit (test code 38.2 % See_Comment [Auto mated = 1114-3) message] The sy stem which generated this result transmitted reference range : 34.0-46.6 %. Th e reference range was not used to interpret this result as normal/abnormal . MCV (test code = 94 fL See_Comment [Automated 787-2) message] The sy stem which generated this result transmitted reference range : 79-97 fL. The reference range was not used to interpret this result as normal/abnormal . MCH (test code = 30.7 pg See_Comment [Automated 785-6) message] The sy stem which generated this result transmitted reference range : 26.6-33.0 pg. T he reference range was not used to interpret this result as normal/abnormal . MCHC (test code = 32.7 g/dL See_Comment [Automate d 786-4) message] The sy stem which generated this result transmitted reference range : 31.5-35.7 g/dL. The reference range was not used to interpret this result as normal/abnormal . RDW (test code = 12.7 % See_Comment [Automated 788-0) message] The sy stem which generated this result transmitted reference range : 11.7-15.4 %. Th e reference range was not used to interpret this result as normal/abnormal . Platelets (test code 288 x10E3/uL See_Comment [Autom ated = 777-3) message] The sy stem which generated this result transmitted reference range : 150-450 x10E3/u L. The reference r lisandro was not used to interpret this result as normal/abnormal . Neutrophils (test 65 % Not Estab. % code = 770-8) Lymphs (test code = 24 % Not Estab. % 736-9) Monocytes (test code 8 % Not Estab. % = 5905-5) Eos (test code = 3 % Not Estab. % 713-8) Basos (test code = 0 % Not Estab. % 706-2) Immature Cells (test code = UNLOINC) Neutrophils 4.4 x10E3/uL See_Comment [Automated (Absolute) (test code messag e] The system = 751-8) which generated this result transmitted reference range : 1.4-7.0 x10E3/u L. The reference r lisandro was not used to interpret this result as normal/abnormal . Lymphs (Absolute) 1.6 x10E3/uL See_Comment [Automate d (test code = 731-0) message] The system which generated this result transmitted reference range : 0.7-3.1 x10E3/u L. The reference r lisandro was not used to interpret this result as normal/abnormal . Monocytes(Absolute) 0.5 x10E3/uL See_Comment [Automa yu (test code = 742-7) message] The system which generated this result transmitted reference range : 0.1-0.9 x10E3/u L. The reference r lisandro was not used to interpret this result as normal/abnormal . Eos (Absolute) (test 0.2 x10E3/uL See_Comment [Autom ated code = 711-2) message] The s ystem which generated this result transmitted reference range : 0.0-0.4 x10E3/u L. The reference r lisandro was not used to interpret this result as normal/abnormal . Baso (Absolute) (test 0.0 x10E3/uL See_Comment [Auto mated code = 704-7) message] The s ystem which generated this result transmitted reference range : 0.0-0.2 x10E3/u L. The reference r lisandro was not used to interpret this result as normal/abnormal . Immature Granulocytes 0 % Not Estab. % (test code = 58879-6) Immature Grans (Abs) 0.0 x10E3/uL See_Comment [Autom ated (test code = 41434-7) messag e] The system which generated this result transmitted reference range : 0.0-0.1 x10E3/u L. The reference r lisandro was not used to interpret this result as normal/abnormal . NRBC (test code = 87285-7) Hematology Comments: (test code = 51456-2) TSH+Free [id number] 00:00:00 Test Item Value Reference Range Interpretation Comments TSH-ICMA (test code = 3016-3) 0.94 uU/mL Free T4 by Dialysis/[facility]er Helper 1.2 ng/dL (test code = 6892-4) [facility], MULTI, PHARM, [id number] 12:12:00FINAL REPORT PROCEDURE:Rest/Stress MYOCARDIAL PERFUSION SCAN with Lexiscan CPT C ODE:46415 CLINICAL INDICATION: chest pain PROTOCOL: 10.2 mCi of Tc-99m sestamibi was injected intravenously at rest and 30.4 mCi of Tc-99m sestamibi was injected after administration of Lexiscan. Otherstress and monitoring data are reported separately. Tomographic (SPECT) images were obtained after resting injection. Gated SPECT images were obtained after stress injection. FINDINGS: Images obtained after resting and stress injections of tracer show physiological tracer distribution in the LV myocardium. Gated images obtained at rest after stress injection show normal LV wall motion and thickening.QGS LVEF is 70 %. IMPRESSION: 1. Normal Lexiscan Cardiolite stress test. 2. Normal wall motion with LVEF of 70 %. Signed: Laura Maria MDReport Verified Date/Time: 11/01/2018 12:12:14 Reading Location: [facility] Cardiology Reading Room TROPONIN [id number] 01:02:00 Test Item Value Reference Range Interpretation Comments [...] acidosis, acute neurological disease, and persistent tachyarrhythmia.TROPONIN [id number] 19:42:00 Test Item Value Reference Range Interpretation [...]
[2023-01-04] MEDS ORDERED: TRANEXAMIC ACID 1,000 MG/10 ML VIAL IV ONE (23:57)
[2023-01-04] MEDS ORDERED: METHYLPREDNISOLONE 125 MG INJ ONE (23:59)
[2023-01-05] MEDS ORDERED: DIPHENHYDRAMINE 50 MG/ML VIAL ONE
[2023-01-05] MEDS ORDERED: NA CHLORIDE 0.9% 100 ML ONE (00:02)
--- NOTE | 2023-01-05 00:40 | ER ---
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 pt reports cm10 that she thinks this happened after she ate some chorrizo with her meds. Pt denies any tongue swelling. No respiratory distress. Coronavirus screen: Vaccine status: Patient reports receiving the 2nd dose of the covid vaccine. Client denies travel out of the [place] in the last 14 days. Ebola Screen: Patient denies travel to an Ebola-affected area in the 21 days before illness onset. No symptoms or risks identified at this time. Onset: The symptoms/episode began/occurred 1 hour(s) ago. Anaphylaxis evaluation, no signs or symptoms of anaphylaxis were noted beta phillip use. Initial Sepsis Screen: Does the patient meet any 2 criteria? No. Patient's initial sepsis screen is negative. Does the patient have a suspected source of infection? No. Patient's initial sepsis screen is negative. Risk Assessment: Do you want to hurt yourself or someone else? Patient reports no desire to harm self or others. Onset of symptoms was January 04, 2023. 23:27 Method Of Arrival: Ambulatory cm10 23:27 Acuity: TANIYA 3 cm10 Historical: - Allergies: 23:30 Cozaar; cm10 23:30 Lisinopril; cm10 - Home Meds: 23:30 metoprolol tartrate 50 mg oral tablet 1 tab once [Active]; atorvastatin 40 mg oral cm10 tablet 1 tab once [Active]; - PMHx: 23:30 Anxiety; Depression; Hyperlipidemia; Hypertension; cm10 - PSHx: 23:31 section; cm10 - Immunization history:: Adult Immunizations unknown. - Social history:: Smoking status: unknown. Screenin:57 [facility] ED Fall Risk Assessment (Adult) History of falling in the last 3 months, rv including since admission No falls in past 3 months (0 pts) Score/Fall Risk Level 0 - 2 = Low Risk Oriented to surroundings, Maintained a safe environment, Educated pt \T\ family on fall prevention, incl call for assistance when getting out of bed, Assessed \T\ reinforced patient's understanding of fall precautions, Provided non-skid footwear, Hourly rounding (assess needs \T\ fall precautionary measures) done, Used ambulatory aids as needed (educated on \T\ assisted with), Used gait belt as appropriate. Abuse screen: Denies threats or abuse. Denies injuries from another. Nutritional screening: No deficits noted. Tuberculosis screening: No symptoms or risk factors identified. Assessment: 23:55 General: Appears comfortable, Behavior is calm, cooperative. Pain: Denies pain. Neuro: rv Level of Consciousness is awake, alert, obeys commands, Oriented to person, place, time, situation. Cardiovascular: Capillary refill < 3 seconds Patient's skin is warm and dry. Respiratory: Airway is patent Respiratory effort is even, unlabored, Respiratory pattern is regular, Breath sounds are clear bilaterally. Denies shortness of breath. GI: No signs and/or symptoms were reported involving the gastrointestinal system. Derm: SWELLING OF UPPER AND LOWER LIPS. Vital Signs: 23:27 BP 139 / 81; Pulse 96; Resp 18 S; Temp 98.7; Pulse Ox 97% on R/A; Weight 90.72 kg (R); cm10 Height 4 ft. 11 in. (R); Pain 0/10; 01/05 00:46 BP 140 / 76; Pulse 84; Resp 18; Temp 98; Pulse Ox 99% on R/A; rv 01/04 23:27 Body Mass Index 40.39 (90.72 kg, 149.86 cm) cm10 01/04 23:27 Pain Scale: Adult cm10 [place] Score: 00:46 Eye Response: spontaneous(4). Motor Response: obeys commands(6). Verbal Response: rv oriented(5). Total: 15. ED Course: 01/04 23:25 Patient arrived in ED. gm2 23:28 Cruz Price MD is Attending Physician. sp3 23:30 Triage completed. cm10 23:32 Arm band placed on Patient placed in waiting room. cm10 23:33 Rafael Roland, OSITO is Primary Nurse. bp 23:54 Inserted saline lock: 20 gauge in right forearm, using aseptic technique. rv 23:57 Patient has correct armband on for positive identification. Client placed on continuous rv cardiac and pulse oximetry monitoring. NIBP monitoring applied. quality assurance monitor body on. 23:57 No provider procedures requiring assistance completed. rv 01/05 00:46 Provided Education on: STEROIDS. rv 00:46 IV discontinued, intact, bleeding controlled, No redness/swelling at site. Pressure rv dressing applied. Administered Medications: 01/04 23:53 Drug: MethylPrednisoLONE IVP 125 mg IVP once Route: IVP; Site: right forearm; rv 01/05 00:46 Follow up: Response: No adverse reaction rv 01/04 23:53 Drug: diphenhydrAMINE IVP 12.5 mg IVP once Route: IVP; Site: right forearm; rv 01/05 00:46 Follow up: Response: No adverse reaction rv 01/04 23:53 Drug: tranexamic acid 1000 mg IV at calculated rate once; administer at a rate not to rv exceed 100 mg per min Route: IV; Rate: calculated rate; Site: right forearm; 01/05 00:45 Follow up: Response: No adverse reaction; IV Status: Completed infusion rv Medication: 01/04 23:57 VIS not applicable for this client. rv Outcome: 01/05 00:39 Discharge ordered by MD. guillen 00:46 Discharged to home ambulatory, with family, rv 00:46 Condition: improved 00:46 Discharge instructions given to patient, family, Instructed on discharge instructions, follow up and referral plans. medication usage, Demonstrated understanding of instructions, follow-up care, medications, Prescriptions given X 1, 00:47 Patient left the ED. rv Signatures: Rafael Roland RN RN Farooq Chase RN RN rv Cruz Price MD MD sp3 Rola Roldan RN RN cm10 Sanjuanita Simpson 2
--- NOTE | 2023-01-05 00:40 | EDPHYS ---
Physician Documentation [facility] – [place], [place] Name: Doreen Black Age: 62 yrs Sex: Female : 1960 Arrival Date: 01/04/2023 Time: 23:23 Bed 5 Private MD: ED Physician Cruz Price HPI: 01/04 23:46 This 62 yrs old Female presents to ER via Ambulatory with complaints of sp3 Allergic Reaction. 23:46 62-year-old female with history of hyperlipidemia, hypertension not currently on an [place] sp3 inhibitor or angiotensin receptor phillip presents to the ED with chief complaint upper and lower lip swelling on the right side without any additional swelling of the lip, pharynx, hives/urticaria, peripheral edema, or any other symptoms at this time. Patient states she ate Trousseau which she states she has had before. No change in her medications. She is currently on metoprolol only for her blood pressure. She denies any concerns of throat closing or throat swelling or difficulty breathing. ROS otherwise negative. No prior history of the same.. Historical: - Allergies: 23:30 Cozaar; cm10 23:30 Lisinopril; cm10 - Home Meds: 23:30 metoprolol tartrate 50 mg oral tablet 1 tab once [Active]; atorvastatin 40 mg oral cm10 tablet 1 tab once [Active]; - PMHx: 23:30 Anxiety; Depression; Hyperlipidemia; Hypertension; cm10 - PSHx: 23:31 section; cm10 - Immunization history:: Adult Immunizations unknown. - Social history:: Smoking status: unknown. ROS: 23:48 Constitutional: Negative for fever, chills, and weight loss, Eyes: Negative for injury, sp3 pain, redness, and discharge, Neck: Negative for injury, pain, and swelling, Cardiovascular: Negative for chest pain, palpitations, and edema, Respiratory: Negative for shortness of breath, cough, wheezing, and pleuritic chest pain, Abdomen/GI: Negative for abdominal pain, nausea, vomiting, diarrhea, and constipation, Back: Negative for injury and pain, MS/Extremity: Negative for injury and deformity, Skin: Negative for injury, rash, and discoloration, Neuro: Negative for headache, weakness, numbness, tingling, and seizure, Psych: Negative for depression, anxiety, suicide ideation, homicidal ideation, and hallucinations, Endocrine: Negative for neck swelling, polydipsia, polyuria, polyphagia, and marked weight changes, Hematologic/Lymphatic: Negative for swollen nodes, abnormal bleeding, and unusual bruising, 23:48 All other systems are negative, Exam: 23:48 Constitutional: This is a well developed, well nourished patient who is awake, alert, sp3 and in no acute distress. Eyes: Pupils equal round and reactive to light, extra-ocular motions intact. Lids and lashes normal. Conjunctiva and sclera are non-icteric and not injected. Cornea within normal limits. Periorbital areas with no swelling, redness, or edema. Neck: Trachea midline, no thyromegaly or masses palpated, and no cervical lymphadenopathy. Supple, full range of motion without nuchal rigidity, or vertebral point tenderness. No Meningismus. Chest/axilla: Normal chest wall appearance and motion. Nontender with no deformity. No lesions are appreciated. Cardiovascular: Regular rate and rhythm with a normal S1 and S2. No gallops, murmurs, or rubs. Normal PMI, no JVD. No pulse deficits. Respiratory: Lungs have equal breath sounds bilaterally, clear to auscultation and percussion. No rales, rhonchi or wheezes noted. No increased work of breathing, no retractions or nasal flaring. Back: No spinal tenderness. No costovertebral tenderness. Full range of motion. Skin: Warm, dry with normal turgor. Normal color with no rashes, no lesions, and no evidence of cellulitis. MS/ Extremity: Pulses equal, no cyanosis. Neurovascular intact. Full, normal range of motion. Neuro: Awake and alert, GCS 15, oriented to person, place, time, and situation. Cranial nerves II-XII grossly intact. Motor strength 5/5 in all extremities. Sensory grossly intact. Cerebellar exam normal. Normal gait. Psych: Awake, alert, with orientation to person, place and time. Behavior, mood, and affect are within normal limits. 23:48 Head/face: Upper and lower lips consistent with angioedema on the right side greater than left side. Tongue is not swollen and posterior oropharynx is not swollen. No concerns for airway compromise noted.. Vital Signs: 23:27 BP 139 / 81; Pulse 96; Resp 18 S; Temp 98.7; Pulse Ox 97% on R/A; Weight 90.72 kg (R); cm10 Height 4 ft. 11 in. (R); Pain 0/10; 01/05 00:46 BP 140 / 76; Pulse 84; Resp 18; Temp 98; Pulse Ox 99% on R/A; rv 01/04 23:27 Body Mass Index 40.39 (90.72 kg, 149.86 cm) cm10 01/04 23:27 Pain Scale: Adult cm10 [place] Coma Score: 00:46 Eye Response: spontaneous(4). Motor Response: obeys commands(6). Verbal Response: rv oriented(5). Total: 15. MDM: 01/04 23:28 Patient medically screened. sp3 23:49 Data reviewed: vital signs, nurses notes. ED course: 62-year-old female with angioedema sp3 of the lips from unknown etiology. I believe this is likely more bradykinin mediated than histamine mediated and therefore we will administer TXA 1 g IV and also Solu-Medrol and Benadryl IV. Disposition will be based on patient course and potential improvement. Will observe in the ED for right now. Patient does not have anaphylaxis, urticaria, airway compromise, sepsis, shock, or any other critical pathology at this time.. 01/05 00:38 ED course: Patient lip is improved after medications. I explained to patient need for sp3 follow-up and to return if symptoms worsen. Will place on prednisone as a precaution and safely discharge patient home at this time. Patient is in no acute distress and is speaking without difficulty.. 01/04 23:43 Order name: IV Saline Lock; Complete Time: 23:53 sp3 01/04 23:43 Order name: Monitor; Complete Time: 23:53 sp3 01/04 23:43 Order name: Pulse Ox Monitoring; Complete Time: 23:49 sp3 01/04 23:43 Order name: NPO; Complete Time: 23:54 sp3 Administered Medications: 01/04 23:53 Drug: MethylPrednisoLONE IVP 125 mg IVP once Route: IVP; Site: right forearm; rv 01/05 00:46 Follow up: Response: No adverse reaction rv 01/04 23:53 Drug: diphenhydrAMINE IVP 12.5 mg IVP once Route: IVP; Site: right forearm; rv 01/05 00:46 Follow up: Response: No adverse reaction rv 01/04 23:53 Drug: tranexamic acid 1000 mg IV at calculated rate once; administer at a rate not to rv exceed 100 mg per min Route: IV; Rate: calculated rate; Site: right forearm; 01/05 00:45 Follow up: Response: No adverse reaction; IV Status: Completed infusion rv Disposition Summary: 01/05/23 00:39 Discharge Ordered Notes: Location: Home sp3 Condition: Stable sp3 Diagnosis - Angioedema of unknown etiology sp3 Followup: sp3 - With: Private Physician - When: Upon discharge from the Emergency Department - Reason: Continuance of care Discharge Instructions: - Discharge Summary Sheet sp3 - Angioedema, [id number] sp3 Forms: - Medication Reconciliation Form sp3 - Thank You Letter sp3 - Antibiotic Education sp3 - Prescription Opioid Use sp3 - Patient Portal Instructions sp3 - Leadership Thank You Letter sp3 Prescriptions: - Prednisone 20 mg Oral Tablet - take 2 tablets ORAL route once daily for 5 days; 10 tablet; Refills: 0, Product sp3 Selection Permitted Signatures: Farooq Johnson, RN RN rv Cruz Price MD MD sp3 Rola Roldan RN RN cm10
[2023-01-05 01:08] VITALS: BP 140/76; TEMP 98; O2SAT 99
== END 2023-01-05 00:47 | disposition home or self-care (01) ==
LOC: ER 23:23
DX: T78.3XXA Angioneurotic edema, initial encounter (principal); Z88.8 Allergy status to other drugs, medicaments and biological substances
CPT/HCPCS: 96365; 96375; 99285; J2930

== ENCOUNTER 2023-10-05 21:11 | Emergency (ER) | payer OTHER, SELFPAY ==
--- NOTE | 2023-10-05 21:51 | ER ---
Nurse's Notes [facility] Name: Doreen Black Age: 63 yrs Sex: Female : 1960 Arrival Date: 10/05/2023 Time: 21:11 Bed DX3 Private MD: Diagnosis: Urticaria, unspecified Presentation: 10/04 21:34 Chief complaint: Patient states: hives to left arm. unknown allergen. Coronavirus as6 screen: At this time, the client does not indicate any symptoms associated with coronavirus-19. Ebola Screen: No symptoms or risks identified at this time. Initial Sepsis Screen: Does the patient meet any 2 criteria? No. Patient's initial sepsis screen is negative. Does the patient have a suspected source of infection? No. Patient's initial sepsis screen is negative. Risk Assessment: Do you want to hurt yourself or someone else? Patient reports no desire to harm self or others. Onset of symptoms was October 05, 2023. 21:34 Acuity: TANIYA 4 as6 21:34 Method Of Arrival: Ambulatory as6 Triage Assessment: 21:57 General: Appears in no apparent distress. comfortable, Behavior is calm, cooperative. as6 Pain: Complains of pain in left arm. Respiratory: Airway is patent Trachea midline Respiratory effort is even, unlabored, Respiratory pattern is regular, symmetrical. Derm: Rash noted that is itchy, red, raised, on left arm. Historical: - Allergies: 21:35 Cozaar; as6 21:35 Lisinopril; as6 - PMHx: 21:35 Anxiety; Depression; Hyperlipidemia; Hypertension; as6 - PSHx: 21:35 section; as6 - Immunization history:: Adult Immunizations up to date. - Infectious Disease History:: Denies. - Social history:: Smoking status: Patient denies any tobacco usage or history of. - Family history:: not pertinent. Screenin:58 [facility] ED Fall Risk Assessment (Adult) History of falling in the last 3 months, as6 including since admission No falls in past 3 months (0 pts) Confusion or Disorientation No (0 pts) Intoxicated or Sedated No (0 pts) Impaired Gait No (0 pts) Mobility Assist Device Used No (0 pt) Altered Elimination No (0 pt) Score/Fall Risk Level 0 - 2 = Low Risk Oriented to surroundings, Maintained a safe environment, Educated pt \T\ family on fall prevention, incl call for assistance when getting out of bed, Assessed \T\ reinforced patient's understanding of fall precautions. Abuse screen: Denies threats or abuse. Denies injuries from another. Nutritional screening: No deficits noted. Tuberculosis screening: No symptoms or risk factors identified. Vital Signs: 21:34 BP 143 / 75; Pulse 64; Resp 18 S; Temp 97.5(TE); Pulse Ox 97% on R/A; Weight 84.82 kg; as6 Height 5 ft. 0 in. ; Pain 8/10; 21:34 Body Mass Index 36.52 (84.82 kg, 152.4 cm) as6 21:34 Pain Scale: Adult as6 ED Course: 21:15 Patient arrived in ED. ra3 21:16 Ayush Foster MD is Attending Physician. rt 21:34 Arm band placed on left wrist. as6 21:35 Triage completed. as6 21:58 Bed in low position. Call light in reach. Provided Education on: rx teaching . as6 21:58 No provider procedures requiring assistance completed. Patient did not have IV access as6 during this emergency room visit. Administered Medications: 22:04 Drug: diphenhydrAMINE PO 50 mg PO once Route: PO; as6 22:04 Follow up: Response: Medication administered at discharge. as6 22:04 Drug: predniSONE PO 40 mg PO once Route: PO; as6 22:04 Follow up: Response: Medication administered at discharge. as6 Medication: 21:58 VIS not applicable for this client. as6 Outcome: 21:50 Discharge ordered by . rt 22:06 Discharged to home ambulatory, with family, as6 22:06 Condition: stable 22:06 Discharge instructions given to patient, family, Instructed on discharge instructions, follow up and referral plans. medication usage, Demonstrated understanding of instructions, follow-up care, medications, Prescriptions given X 1, 22:06 Patient left the ED. as6 Signatures: Dayo Flores RN RN as6 Ayush Foster MD MD rt Marie Solano ra3
--- NOTE | 2023-10-05 21:51 | EDPHYS ---
Physician Documentation [facility] [place] Name: Doreen Black Age: 63 yrs Sex: Female : 1960 Arrival Date: 10/05/2023 Time: 21:11 Bed DX3 Private MD: ED Physician Ayush Foster HPI: 10/04 22:39 This 63 yrs old Female presents to ER via Ambulatory with complaints of rt Allergic Reaction. 22:39 Patient presents to the ED with reported allergic reaction, starting tonight. Patient rt reports that is itching. States that is on her left arm, left leg. Denies tongue, lip swelling, difficulty breathing. Denies other acute complaints, symptoms are mild in severity, no other aggravating or alleviating factors.. Historical: - Allergies: 21:35 Cozaar; as6 21:35 Lisinopril; as6 - PMHx: 21:35 Anxiety; Depression; Hyperlipidemia; Hypertension; as6 - PSHx: 21:35 section; as6 - Immunization history:: Adult Immunizations up to date. - Infectious Disease History:: Denies. - Social history:: Smoking status: Patient denies any tobacco usage or history of. - Family history:: not pertinent. ROS: 22:39 Constitutional: Negative for fever, chills, and weight loss, Cardiovascular: Negative rt for chest pain, palpitations, and edema, Respiratory: Negative for shortness of breath, cough, wheezing, and pleuritic chest pain, Abdomen/GI: Negative for abdominal pain, nausea, vomiting, diarrhea, and constipation, Neuro: Negative for headache, weakness, numbness, tingling, and seizure, 22:39 Skin: Positive for Rash, itching, Exam: 22:39 Constitutional: This is a well developed, well nourished patient who is awake, alert, rt and in no acute distress. Head/Face: Normocephalic, atraumatic. ENT: Nares patent. No nasal discharge, no septal abnormalities noted. Tympanic membranes are normal and external auditory canals are clear. Oropharynx with no redness, swelling, or masses, exudates, or evidence of obstruction, uvula midline. Mucous membranes moist. Chest/axilla: Normal chest wall appearance and motion. Nontender with no deformity. No lesions are appreciated. Cardiovascular: Regular rate and rhythm with a normal S1 and S2. No gallops, murmurs, or rubs. Normal PMI, no JVD. No pulse deficits. Respiratory: Lungs have equal breath sounds bilaterally, clear to auscultation and percussion. No rales, rhonchi or wheezes noted. No increased work of breathing, no retractions or nasal flaring. Abdomen/GI: Soft, non-tender, with normal bowel sounds. No distension or tympany. No guarding or rebound. No evidence of tenderness throughout. MS/ Extremity: Pulses equal, no cyanosis. Neurovascular intact. Full, normal range of motion. Neuro: Awake and alert, GCS 15, oriented to person, place, time, and situation. Cranial nerves II-XII grossly intact. Motor strength 5/5 in all extremities. Sensory grossly intact. Cerebellar exam normal. Normal gait. 22:39 Skin: Urticarial rash noted on left arm, left leg. Vital Signs: 21:34 BP 143 / 75; Pulse 64; Resp 18 S; Temp 97.5(TE); Pulse Ox 97% on R/A; Weight 84.82 kg; as6 Height 5 ft. 0 in. ; Pain 8/10; 21:34 Body Mass Index 36.52 (84.82 kg, 152.4 cm) as6 21:34 Pain Scale: Adult as6 MDM: 21:46 Patient medically screened. rt 22:39 Differential diagnosis: Urticaria. Data reviewed: vital signs, nurses notes. I rt considered the following discharge prescriptions or medication management in the emergency department Medications were administered in the Emergency Department. See MAR. Counseling: I had a detailed discussion with the patient and/or guardian regarding the historical points, exam findings, and any diagnostic results supporting the discharge/admit diagnosis, the need for outpatient follow up, to return to the emergency department if symptoms worsen or persist or if there are any questions or concerns that arise at home. Response to treatment: the patient's symptoms have mildly improved after treatment. ED course: No signs of anaphylaxis, patient is stable for outpatient care. Administered Medications: 22:04 Drug: diphenhydrAMINE PO 50 mg PO once Route: PO; as6 22:04 Follow up: Response: Medication administered at discharge. as6 22:04 Drug: predniSONE PO 40 mg PO once Route: PO; as6 22:04 Follow up: Response: Medication administered at discharge. as6 Disposition Summary: 10/05/23 21:50 Discharge Ordered Notes: Location: Home rt Problem: new rt Symptoms: are unchanged rt Condition: Stable rt Diagnosis - Urticaria, unspecified rt Followup: rt - With: Private Physician - When: 2 - 3 days - Reason: Discharge Instructions: - Discharge Summary Sheet rt - Hives rt Forms: - Medication Reconciliation Form rt - Antibiotic Education rt - Prescription Opioid Use rt - Patient Portal Instructions rt - Leadership Thank You Letter rt Prescriptions: - Prednisone 20 mg Oral Tablet - take 2 tablets ORAL route once daily for 5 days; 10 tablet; Refills: 0, Product rt Selection Permitted Signatures: Dayo Flores RN RN as6 Ayush Foster MD MD rt
[2023-10-05] MEDS ORDERED: predniSONE 20 MG TAB ONE (22:00)
[2023-10-05] MEDS ORDERED: DIPHENHYDRAMINE 25 MG TAB/CAP ONE (22:00)
[2023-10-05 22:36] VITALS: BP 143/75; TEMP 97.5; O2SAT 97
== END 2023-10-05 22:06 | disposition home or self-care (01) ==
LOC: ER 21:11
DX: L50.9 Urticaria, unspecified (principal); R21 Rash and other nonspecific skin eruption
CPT/HCPCS: 99283; J7512

== ENCOUNTER 2024-04-10 23:51 | Emergency (ER) | payer OTHER ==
--- NOTE | 2024-04-11 01:18 | ER ---
Nurse's Notes [facility] Name: Doreen Black Age: 63 yrs Sex: Female : 1960 Arrival Date: 04/10/2024 Time: 23:51 Bed 5 Private MD: Diagnosis: Sprain of unspecified site of right knee, initial encounter Presentation: 04/11 00:01 Chief complaint: She was climbing down from a chair and her leg got caught and she fell vc1 with the chair. Did not hit head. C/O Pain to right knee. Coronavirus screen: Client denies travel out of the [place] in the last 14 days. At this time, the client does not indicate any symptoms associated with coronavirus-19. Ebola Screen: Patient negative for fever greater than or equal to 101.5 degrees Fahrenheit, and additional compatible Ebola Virus Disease symptoms Patient denies exposure to infectious person. Patient denies travel to an Ebola-affected area in the 21 days before illness onset. No symptoms or risks identified at this time. Initial Sepsis Screen: Does the patient meet any 2 criteria? No. Patient's initial sepsis screen is negative. Does the patient have a suspected source of infection? No. Patient's initial sepsis screen is negative. Risk Assessment: Do you want to hurt yourself or someone else? Patient reports no desire to harm self or others. Onset of symptoms was April 11, 2024. Care prior to arrival: Medication(s) given: Motrin, 200 mg. Activity prior to arrival: None. 00:01 Method Of Arrival: Ambulatory vc1 00:01 Acuity: TANIYA 4 vc1 Triage Assessment: 00:08 General: Appears in no apparent distress. comfortable, obese, well groomed, well vc1 developed, Behavior is calm, cooperative, appropriate for age. Pain: Complains of pain in posterior aspect of right knee and right knee Pain does not radiate. Pain currently is 6 out of 10 on a pain scale. at worst was 8 out of 10 on a pain scale. Quality of pain is described as sharp, Pain began suddenly, Aggravated by increased activity, repositioning, weight bearing. EENT: No deficits noted. No signs and/or symptoms were reported regarding the EENT system. Neuro: Level of Consciousness is awake, alert, obeys commands, Oriented to person, place, time, situation, Appropriate for age. Cardiovascular: Capillary refill < 3 seconds Patient's skin is warm and dry. Respiratory: Airway is patent Respiratory effort is even, unlabored, Respiratory pattern is regular, symmetrical. GI: No deficits noted. No signs and/or symptoms were reported involving the gastrointestinal system. : No deficits noted. No signs and/or symptoms were reported regarding the genitourinary system. Derm: Skin is intact, is healthy with good turgor, Skin is normal, Bruising that is dark purple, on right knee. Musculoskeletal: Circulation, motion, and sensation intact. Range of motion: intact in all extremities. Historical: - Allergies: 00:04 Cozaar; vc1 00:04 Lisinopril; vc1 - PMHx: 00:04 Anxiety; Depression; Hyperlipidemia; Hypertension; vc1 - PSHx: 00:04 section; vc1 - Immunization history:: Adult Immunizations unknown. - Infectious Disease History:: Denies. - Social history:: Smoking status: Patient denies any tobacco usage or history of. Screenin:05 [facility] ED Fall Risk Assessment (Adult) History of falling in the last 3 months, vc1 including since admission Yes- single mechanical fall (1 pt) Confusion or Disorientation No (0 pts) Intoxicated or Sedated No (0 pts) Impaired Gait Yes (1 pt) Mobility Assist Device Used Yes (1 pt) Altered Elimination No (0 pt) Score/Fall Risk Level 3 or more points = High Risk Oriented to surroundings, Maintained a safe environment, Educated pt \T\ family on fall prevention, incl call for assistance when getting out of bed, Hourly rounding (assess needs \T\ fall precautionary measures) done. Abuse screen: Denies threats or abuse. Nutritional screening: No deficits noted. Tuberculosis screening: No symptoms or risk factors identified. Assessment: 00:36 General: Appears in no apparent distress. Behavior is calm, cooperative, appropriate dd2 for age. Pain: Denies pain. Neuro: [place] Agitation-Sedation Scale (RASS): 0 - Alert and Calm Level of Consciousness is awake, alert, obeys commands, Oriented to person, place, time, situation, Appropriate for age. Cardiovascular: No deficits noted. Patient's skin is warm and dry. Respiratory: No deficits noted. Airway is patent Respiratory effort is even, unlabored, Respiratory pattern is regular, symmetrical. GI: No deficits noted. No signs and/or symptoms were reported involving the gastrointestinal system. : No deficits noted. No signs and/or symptoms were reported regarding the genitourinary system. EENT: No deficits noted. No signs and/or symptoms were reported regarding the EENT system. Derm: Bruising that is dark purple, on right knee. Musculoskeletal: Circulation, motion, and sensation intact. Range of motion: intact in all extremities, Tenderness present in posterior aspect of right knee. Vital Signs: 00:01 BP 155 / 81; Pulse 88; Resp 15; Temp 97; Pulse Ox 98% ; Weight 86.18 kg; Height 4 ft. vc1 11 in. ; Pain 6/10; 01:30 BP 136 / 87; Pulse 85; Resp 16; Temp 97.9(O); Pulse Ox 98% on R/A; dd2 00:01 Body Mass Index 38.37 (86.18 kg, 149.86 cm) vc1 00:01 Pain Scale: Adult vc1 [place] Coma Score: 00:36 Eye Response: spontaneous(4). Motor Response: obeys commands(6). Verbal Response: dd2 oriented(5). Total: 15. ED Course: 04/10 23:53 Patient arrived in ED. ra3 04/11 00:03 Triage completed. vc1 00:05 Arm band placed on right wrist. EKG completed in triage. Results shown to MD. EKG vc1 completed in triage. Results shown to MD. 00:10 Eloisa Tuttle [facility]-C [facility]. sb4 00:10 Romel Pan MD is Attending Physician. sb4 00:24 WENDI NOEL, OSITO is Primary Nurse. dd2 00:36 Patient has correct armband on for positive identification. Bed in low position. Call dd2 light in reach. Side rails up X2. Client placed on continuous cardiac and pulse oximetry monitoring. NIBP monitoring applied. Door closed. Noise minimized. Pillow given. Verbal reassurance given. 00:36 No provider procedures requiring assistance completed. Patient did not have IV access dd2 during this emergency room visit. Patient maintains SpO2 saturation greater than 95% on room air. 00:44 Knee Right 3 View XRAY In Process Unspecified. EDMS 01:18 Eric Melvin MD is Referral Physician. sb4 01:41 Provided Education on: D/C EDUCATION. dd2 Administered Medications: No medications were administered Medication: 00:05 VIS not applicable for this client. vc1 Outcome: 01:18 Discharge ordered by . sb4 01:41 Discharged to home via wheelchair, with family, dd2 01:41 Condition: good 01:41 Discharge instructions given to patient, family, Instructed on discharge instructions, follow up and referral plans. medication usage, Demonstrated understanding of instructions, follow-up care, medications, 01:42 Patient left the ED. dd2 Signatures: Dispatcher [employer] EDMS Lima Lou RN RN vc1 Eloisa Tuttle, PA-C PA-C sb4 Marie Solano ra3 WENDI NOEL RN RN dd2 Brigida Corado RN RN ay Corrections: (The following items were deleted from the chart) 01:43 00:00 BP 113 / 58; Pulse 79bpm; Resp 17bpm; Spontaneous; Pulse Ox 94% RA; ay ay
--- NOTE | 2024-04-11 01:18 | EDPHYS ---
Physician Documentation [facility] Name: Doreen Black Age: 63 yrs Sex: Female : 1960 Arrival Date: 04/10/2024 Time: 23:51 Bed 5 Private MD: ED Physician Romel Pan HPI: 04/11 00:16 This 63 yrs old Female presents to ER via Ambulatory with complaints of Fall sb4 Injury, Leg Pain. 00:16 Details of fall: The patient fell from a height, chair. Onset: The symptoms/episode sb4 began/occurred just prior to arrival. Associated injuries: The patient sustained posterior aspect of right knee. The patient has not experienced similar symptoms in the past. The patient has not recently seen a physician. Historical: - Allergies: 00:04 Cozaar; vc1 00:04 Lisinopril; vc1 - PMHx: 00:04 Anxiety; Depression; Hyperlipidemia; Hypertension; vc1 - PSHx: 00:04 section; vc1 - Immunization history:: Adult Immunizations unknown. - Infectious Disease History:: Denies. - Social history:: Smoking status: Patient denies any tobacco usage or history of. ROS: 00:16 Constitutional: Negative for fever, chills, and weight loss, sb4 00:16 MS/extremity: Positive for injury or acute deformity, pain, of the posterior aspect of right knee, 00:16 All other systems are negative, Exam: 00:16 Constitutional: This is a well developed, well nourished patient who is awake, alert, sb4 and in no acute distress. Head/Face: Normocephalic, atraumatic. Eyes: Extra-ocular motions intact. Periorbital areas with no swelling, redness, or edema. ENT: Mucous membranes moist. Respiratory: No increased work of breathing, no retractions or nasal flaring. Skin: Warm, dry with normal turgor. Normal color with no rashes, no lesions, and no evidence of cellulitis. MS/ Extremity: Pulses equal, no cyanosis. Neurovascular intact. Full, normal range of motion. Neuro: Awake and alert, GCS 15, oriented to person, place, time, and situation. Motor strength 5/5 in all extremities. Sensory grossly intact. Vital Signs: 00:01 BP 155 / 81; Pulse 88; Resp 15; Temp 97; Pulse Ox 98% ; Weight 86.18 kg; Height 4 ft. vc1 11 in. ; Pain 6/10; 01:30 BP 136 / 87; Pulse 85; Resp 16; Temp 97.9(O); Pulse Ox 98% on R/A; dd2 00:01 Body Mass Index 38.37 (86.18 kg, 149.86 cm) vc1 00:01 Pain Scale: Adult vc1 [place] Coma Score: 00:36 Eye Response: spontaneous(4). Motor Response: obeys commands(6). Verbal Response: dd2 oriented(5). Total: 15. MDM: 00:10 Medical Screening Exam initiated sb4 00:58 Data reviewed: vital signs, nurses notes, radiologic studies, and as a result, I will sb4 discharge patient. Independent interpretation of the following test(s) in the Emergency Department X-Ray: My interpretation is my interpretation of the knee xray images is no acute fracture or dislocation. Care significantly affected by the following chronic conditions: Hypertension, Obesity. Counseling: I had a detailed discussion with the patient and/or guardian regarding the historical points, exam findings, and any diagnostic results supporting the discharge/admit diagnosis, radiology results, the need for outpatient follow up, for definitive care, to return to the emergency department if symptoms worsen or persist or if there are any questions or concerns that arise at home. 04/11 00:04 Order name: Knee Right 3 View XRAY sb4 Administered Medications: No medications were administered Disposition: 03:07 Co-signature as Attending Physician, Romel Pan MD I agree with the assessment sp4 and plan of care. I reviewed the patient's care provided by the Advanced Practice Provider and agree with the diagnosis and treatment plan. Disposition Summary: 04/11/24 01:18 Discharge Ordered Notes: Location: Home sb4 Problem: new sb4 Symptoms: have improved sb4 Condition: Stable sb4 Diagnosis - Sprain of unspecified site of right knee, initial encounter sb4 Followup: sb4 - With: Eric Melvin MD - When: As needed - Reason: Recheck today's complaints, Re-evaluation by your physician Discharge Instructions: - Discharge Summary Sheet sb4 - Knee Sprain, Adult, [id number] sb4 Forms: - Patient Portal Instructions sb4 - Leadership Thank You Letter sb4 Signatures: Dispatcher [employer] Lima Davis RN RN vc1 Eloisa Tuttle PA-C PA-C sb4 Romel Pan MD MD sp4
[2024-04-11 01:48] VITALS: O2SAT 98
[2024-04-11 01:50] VITALS: BP 136/87; TEMP 97.9
--- NOTE | 2024-04-11 06:20 | RAD REPORT ---
EXAM DESCRIPTION: Knee Right 3 View CLINICAL HISTORY: PAIN COMPARISON: None. FINDINGS: 3 views of the right knee. No acute fracture or dislocation. Osteopenia. Moderate 3 compartment joint space narrowing and marginal osteophytosis. No definite joint effusion. IMPRESSION: No acute fracture or dislocation. 3 compartment osteoarthritic change. Electronically signed by: Emile Pennington DO 04/11/2024 01:15 AM [facility] [id number] Due to temporary technical issues with the PACS/[employer] reporting system, reports are being shelby d by the in-house radiologist without review as a courtesy to ensure prompt reporting the interpreting radiologist is fully responsible for the content of the report. Transcribed Date/Time: 04/11/2024 6:20 AM
== END 2024-04-11 01:42 | disposition home or self-care (01) ==
LOC: ER 23:51
DX: S83.91XA Sprain of unspecified site of right knee, initial encounter (principal)
CPT/HCPCS: 99284